=== PATIENT | male | born 1930 | race Caucasian/White ===

== ENCOUNTER 2017-04-15 09:19 | Inpatient (IN) | payer MEDICARE ==
[2017-04-15] MEDS ORDERED: IPRATROPIUM-ALBUTEROL 3 ML NEB INHALATION STA (09:23)
--- NOTE | 2017-04-15 09:28 | ED ---
General Adult HPI - General Stated complaint: SOB Time Seen by Provider: 04/15/17 09:23 Source: patient, EMS, RN notes reviewed, old records reviewed Mode of arrival: EMS Limitations: physical limitation - History of Present Illness Initial comments: Patient is a pleasant 86-year-old male presenting to the emergency department with difficulty in breathing. Patient states onset was throughout the night. Patient does have a known history of congestive heart failure. Patient admits his legs are swollen. Patient denies any history of COPD. No fever. Chest pain. Symptoms are starting to become severe. - Related Data Home Medications Medication Instructions Recorded Confirmed Enalapril [Vasotec] 20 mg PO DAILY 04/01/17 04/15/17 Furosemide [Lasix] 40 mg PO DAILY 04/01/17 04/15/17 Isosorbide Mononitrate ER [Imdur] 30 mg PO DAILY 04/01/17 04/15/17 Metoprolol Tartrate [Lopressor] 50 mg PO BID 04/01/17 04/15/17 Potassium Chloride [Klor-Con 20] 20 meq PO DAILY 04/01/17 04/15/17 Simvastatin 40 mg PO DAILY 04/01/17 04/15/17 Previous Rx's Medication Instructions Recorded Aspirin 81 mg PO DAILY #0 04/02/17 metFORMIN HCL [Glucophage] 1,000 mg PO BID #0 04/02/17 Allergies Allergy/AdvReac Type Severity Reaction Status Date / Time No Known Allergies Allergy Verified 04/15/17 09:59 Review of Systems ROS Statement: Those systems with pertinent positive or pertinent negative responses have been documented in the HPI. ROS Other: All systems not noted in ROS Statement are negative. Constitutional: Denies: fever Eyes: Denies: eye pain ENT: Denies: ear pain Respiratory: Reports: dyspnea Cardiovascular: Denies: chest pain Endocrine: Denies: fatigue Gastrointestinal: Denies: abdominal pain Genitourinary: Denies: dysuria Musculoskeletal: Denies: back pain Skin: Denies: rash Neurological: Denies: headache Past Medical History Past Medical History: Coronary Artery Disease (CAD), Chest Pain / Angina, Heart Failure, Hyperlipidemia, Hypertension, Sleep Apnea/CPAP/BIPAP Additional Past Medical History / Comment(s): NIDDM type II recently diagnosed 02/2017, pt states he has lost 21 pounds since January 2017 and does not know reason, PHILIPPE with CPAP no longer used d/t wt loss and doesn't fit well History of Any Multi-Drug Resistant Organisms: None Reported Past Surgical History: Adenoidectomy, Heart Catheterization, Hernia Repair, Pacemaker, Tonsillectomy Additional Past Surgical History / Comment(s): 12/2013 pacemaker, R inguinal hernia repair, 2006 CABG 4 vessel, 2008 cardiac cath/tx medically, colonoscopy. Past Anesthesia/Blood Transfusion Reactions: No Reported Reaction Type of Cardiac Device: Permanent Pacemaker Device Placement Date:: 2013 Smoking Status: Former smoker - Past Family History Mother Family Medical History: No Reported History Additional Family Medical History / Comment(s): Mother was healthy Father Family Medical History: Renal Disease Additional Family Medical History / Comment(s): Father had medical problems caused from exposure to motor fuels at his workplace. General Exam Limitations: physical limitation General appearance: alert, anxious, in distress Head exam: Present: atraumatic Eye exam: Present: normal appearance, PERRL ENT exam: Present: normal oropharynx Neck exam: Present: normal inspection Respiratory exam: Present: respiratory distress, rales (Bilateral bases), accessory muscle use Cardiovascular Exam: Present: regular rate, normal rhythm GI/Abdominal exam: Present: soft. Absent: tenderness Extremities exam: Present: pedal edema (+3 bilateral). Absent: calf tenderness Neurological exam: Present: alert Psychiatric exam: Present: anxious Skin exam: Present: normal color. Absent: rash Course Vital Signs 04/15/17 04/15/17 04/15/17 09:21 09:36 09:38 Temperature 97.1 F L Pulse Rate 92 53 L Respiratory 16 40 H Rate Blood Pressure 201/93 O2 Sat by Pulse 87 L Oximetry 04/15/17 09:47 Temperature Pulse Rate 54 L Respiratory Rate Blood Pressure O2 Sat by Pulse Oximetry EKG Findings - EKG Comments: EKG Findings:: Paced rhythm at 76. QRS 168. QT 4:30. QTC 483. Left axis. Wide complex QRS with septal Q waves. No acute ST change. Previous EKG reviewed dated 04/01/2017. Medical Decision Making - Medical Decision Making Patient reevaluated and is improving with BiPAP. Case was discussed in detail with Dr. Auguste who will admit his patient. Consult for Dr. Bernstein. Case was also discussed with Dr. Bernstein. Cardiology will be consulted. - Lab Data Result diagrams: 04/15/17 09:34 04/15/17 09:34 Lab Results 04/15/17 04/15/17 04/15/17 Range/Units 09:34 09:34 09:34 WBC 26.3 H* (3.8-10.6) k/uL RBC 5.29 (4.30-5.90) m/uL Hgb 14.2 (13.0-17.5) gm/dL Hct 47.8 (39.0-53.0) % MCV 90.4 (80.0-100.0) fL MCH 26.9 (25.0-35.0) pg MCHC 29.7 L (31.0-37.0) g/dL RDW 13.4 (11.5-15.5) % Plt Count 326 (150-450) k/uL Neutrophils % 87 % Lymphocytes % 5 % Monocytes % 6 % Eosinophils % 0 % Basophils % 0 % Neutrophils # 22.9 H (1.3-7.7) k/uL Lymphocytes # 1.4 (1.0-4.8) k/uL Monocytes # 1.7 H (0-1.0) k/uL Eosinophils # 0.1 (0-0.7) k/uL Basophils # 0.0 (0-0.2) k/uL Hypochromasia Moderate PT (9.0-12.0) sec INR (<1.2) APTT (22.0-30.0) sec Sodium 140 (137-145) mmol/L Potassium 4.7 (3.5-5.1) mmol/L Chloride 106 (98-107) mmol/L Carbon Dioxide 20 L (22-30) mmol/L Anion Gap 14 mmol/L BUN 40 H (9-20) mg/dL Creatinine 1.14 (0.66-1.25) mg/dL Est GFR (MDRD) Af Amer >60 (>60 ml/min/1.73 sqM) Est GFR (MDRD) Non-Af >60 (>60 ml/min/1.73 sqM) Glucose 199 H (74-99) mg/dL Calcium 9.3 (8.4-10.2) mg/dL Total Bilirubin 1.0 (0.2-1.3) mg/dL AST 23 (17-59) U/L ALT 14 L (21-72) U/L Alkaline Phosphatase 82 (38-126) U/L Total Creatine Kinase 27 L (55-170) U/L CK-MB (CK-2) 0.7 (0.0-2.4) ng/mL CK-MB (CK-2) Rel Index 2.6 Troponin I 0.046 H* (0.000-0.034) ng/mL NT-Pro-B Natriuret Pep pg/mL Total Protein 7.4 (6.3-8.2) g/dL Albumin 3.6 (3.5-5.0) g/dL Influenza Type A RNA (Not Detectd) Influenza Type B (PCR) (Not Detectd) 04/15/17 04/15/17 04/15/17 Range/Units 09:34 09:34 09:34 WBC (3.8-10.6) k/uL RBC (4.30-5.90) m/uL Hgb (13.0-17.5) gm/dL Hct (39.0-53.0) % MCV (80.0-100.0) fL MCH (25.0-35.0) pg MCHC (31.0-37.0) g/dL RDW (11.5-15.5) % Plt Count (150-450) k/uL Neutrophils % % Lymphocytes % % Monocytes % % Eosinophils % % Basophils % % Neutrophils # (1.3-7.7) k/uL Lymphocytes # (1.0-4.8) k/uL Monocytes # (0-1.0) k/uL Eosinophils # (0-0.7) k/uL Basophils # (0-0.2) k/uL Hypochromasia PT 12.7 H (9.0-12.0) sec INR 1.4 H (<1.2) APTT 24.6 (22.0-30.0) sec Sodium (137-145) mmol/L Potassium (3.5-5.1) mmol/L Chloride (98-107) mmol/L Carbon Dioxide (22-30) mmol/L Anion Gap mmol/L BUN (9-20) mg/dL Creatinine (0.66-1.25) mg/dL Est GFR (MDRD) Af Amer (>60 ml/min/1.73 sqM) Est GFR (MDRD) Non-Af (>60 ml/min/1.73 sqM) Glucose (74-99) mg/dL Calcium (8.4-10.2) mg/dL Total Bilirubin (0.2-1.3) mg/dL AST (17-59) U/L ALT (21-72) U/L Alkaline Phosphatase (38-126) U/L Total Creatine Kinase (55-170) U/L CK-MB (CK-2) (0.0-2.4) ng/mL CK-MB (CK-2) Rel Index Troponin I (0.000-0.034) ng/mL NT-Pro-B Natriuret Pep 7020 pg/mL Total Protein (6.3-8.2) g/dL Albumin (3.5-5.0) g/dL Influenza Type A RNA Not Detected (Not Detectd) Influenza Type B (PCR) Not Detected (Not Detectd) - Radiology Data Radiology results: image reviewed (Chest x-ray shows pulmonary edema) Critical Care Time Critical Care Time: Yes Total Critical Care Time: 32 Disposition Clinical Impression: CHF (congestive heart failure), Acute respiratory failure, Pulmonary edema Disposition: ADMITTED IP TO THIS [facility] Condition: Serious Referrals: Antonio Auguste DO [Primary Care Provider] - 1-2 days Decision Time: 11:26
[2017-04-15] MEDS ORDERED: NITROGLYCERIN OINT 1 INCH/GM PACKET TOPICAL STA (09:35)
[2017-04-15] MEDS ORDERED: FUROSEMIDE 10 MG/ML 4 ML VIAL IV STA (09:35)
--- NOTE | 2017-04-15 09:35 | XR ---
EXAMINATION TYPE: XR chest 1V portable DATE OF EXAM: 04/15/2017 COMPARISON: NONE HISTORY: Shortness of breath FINDINGS: There are bilateral pleural effusions with cardiomegaly and bibasilar infiltrate. There is a diffuse interstitial pattern. Cardiac device postsurgical changes noted. Arthropathy shoulders. IMPRESSION: 1. Diffuse airspace disease with bilateral effusion. Differential includes pneumonia or pulmonary usama
[2017-04-15] MEDS ORDERED: ENALAPRILAT 1.25 MG/ML 1 ML VIAL IVP STA (09:36)
[2017-04-15 10:02] LABS: Basophils % (A) 0 %; Eosinophils # (A) 0.1 k/uL (0-0.7); Eosinophils % (A) 0 %; HCT 47.8 % (39.0-53.0); HGB 14.2 gm/dL (13.0-17.5); Hypochromasia Moderate; Lymphocytes # (A) 1.4 k/uL (1.0-4.8); Lymphocytes % (A) 5 %; MCH 26.9 pg (25.0-35.0); MCHC 29.7 g/dL (31.0-37.0); MCV 90.4 fL (80.0-100.0); Mean Platelet Volume 8.7; Monocytes # (A) 1.7 k/uL (0-1.0); Monocytes % (A) 6 %; Neutrophils # (A) 22.9 k/uL (1.3-7.7); Neutrophils % (A) 87 %; Platelet Count 326 k/uL (150-450); RBC 5.29 m/uL (4.30-5.90); RDW 13.4 % (11.5-15.5)
[2017-04-15 10:04] LABS: ALT 14 U/L (21-72); AST 23 U/L (17-59); Albumin 3.6 g/dL (3.5-5.0); Alkaline Phosphatase 82 U/L (38-126); Anion Gap 14 mmol/L; Blood Urea Nitrogen 40 mg/dL (9-20); Calcium 9.3 mg/dL (8.4-10.2); Carbon Dioxide 20 mmol/L (22-30); Chloride 106 mmol/L (98-107); Glucose 199 mg/dL (74-99); INR 1.4 (<1.2); Partial Thromboplastin Time 24.6 sec (22.0-30.0); Prothrombin Time 12.7 sec (9.0-12.0); Sodium 140 mmol/L (137-145); Total Protein 7.4 g/dL (6.3-8.2)
[2017-04-15 10:08] LABS: WBC 26.3 k/uL (3.8-10.6)
[2017-04-15 10:10] LABS: Potassium 4.7 mmol/L (3.5-5.1)
[2017-04-15 10:24] LABS: Creatine Kinase MB 0.7 ng/mL (0.0-2.4)
[2017-04-15 10:29] LABS: Troponin I 0.046 ng/mL (0.000-0.034)
[2017-04-15] MEDS ORDERED: ASPIRIN 325 MG TAB PO STA (11:27)
--- NOTE | 2017-04-15 12:21 | P.CNPUL ---
History of Present Illness Consult date: 04/15/17 Requesting physician: Antonio Auguste Reason for consult: dyspnea, abnormal CXR/CT Chief complaint: Shortness of breath History of present illness: This is a very pleasant 86-year-old gentleman who follows with Dr. Auguste as his primary care physician. He has a history of coronary artery disease with previous coronary artery bypass grafting 4 in 2008, permanent pacemaker implantation, diabetes mellitus, obstructive sleep apnea not currently on CPAP, hypertension, hyperlipidemia. He presented here to the emergency room early this morning with complaints of increasing shortness of breath, cough and congestion. He also had increased lower extremity edema. Positive orthopnea. Chest x-ray reveals diffuse airspace disease with bilateral infusion and acute pulmonary edema. He is currently on BiPAP 10/5 and 60% FiO2. He has been initiated on Lasix 40 mg IV push every 8 hours. White count 26.3. Hemoglobin 14.2. INR 1.4. Creatinine 1.14. ProBNP 7020. Troponin 0.046. Influenza screen is negative. Review of Systems 14 point review of system was conducted. All negative other than as mentioned in HPI. Past Medical History Past Medical History: Coronary Artery Disease (CAD), Chest Pain / Angina, Heart Failure, Hyperlipidemia, Hypertension, Sleep Apnea/CPAP/BIPAP Additional Past Medical History / Comment(s): NIDDM type II recently diagnosed 02/2017, pt states he has lost 21 pounds since January 2017 and does not know reason, PHILIPPE with CPAP no longer used d/t wt loss and doesn't fit well History of Any Multi-Drug Resistant Organisms: None Reported Past Surgical History: Adenoidectomy, Heart Catheterization, Hernia Repair, Pacemaker, Tonsillectomy Additional Past Surgical History / Comment(s): 12/2013 pacemaker, R inguinal hernia repair, 2006 CABG 4 vessel, 2008 cardiac cath/tx medically, colonoscopy. Past Anesthesia/Blood Transfusion Reactions: No Reported Reaction Type of Cardiac Device: Permanent Pacemaker Device Placement Date:: 2013 Smoking Status: Former smoker - Past Family History Mother Family Medical History: No Reported History Additional Family Medical History / Comment(s): Mother was healthy Father Family Medical History: Renal Disease Additional Family Medical History / Comment(s): Father had medical problems caused from exposure to motor fuels at his workplace. Medications and Allergies Home Medications Medication Instructions Recorded Confirmed Type Enalapril [Vasotec] 20 mg PO DAILY 04/01/17 04/15/17 History Furosemide [Lasix] 40 mg PO DAILY 04/01/17 04/15/17 History Isosorbide Mononitrate ER [Imdur] 30 mg PO DAILY 04/01/17 04/15/17 History Metoprolol Tartrate [Lopressor] 50 mg PO BID 04/01/17 04/15/17 History Potassium Chloride [Klor-Con 20] 20 meq PO DAILY 04/01/17 04/15/17 History Simvastatin 40 mg PO DAILY 04/01/17 04/15/17 History Aspirin 81 mg PO DAILY #0 04/02/17 04/15/17 Rx metFORMIN HCL [Glucophage] 1,000 mg PO BID #0 04/02/17 04/15/17 Rx Allergies Allergy/AdvReac Type Severity Reaction Status Date / Time No Known Allergies Allergy Verified 04/15/17 09:59 Physical Exam Vitals: Vital Signs Temp Pulse Resp BP Pulse Ox 04/15/17 11:52 97.6 F 50 L 30 H 135/63 95 04/15/17 11:39 50 L 29 H 139/60 97 04/15/17 11:11 50 L 29 H 127/59 97 04/15/17 09:56 52 L 30 H 155/62 98 04/15/17 09:47 54 L 04/15/17 09:38 53 L 04/15/17 09:36 40 H 04/15/17 09:21 97.1 F L 92 16 201/93 87 L Intake and Output 04/14/17 04/15/17 04/15/17 22:59 06:59 14:59 Other: Weight 97.069 kg Patient Weight 04/16/17 06:59 Weight 97.069 kg GENERAL EXAM: Alert, fairly comfortable in mild respiratory distress. HEAD: Normocephalic. EYES: Normal reaction of pupils, equal size. NOSE: Clear with pink turbinates. THROAT: No erythema or exudates. NECK: No masses, no JVD. CHEST: No chest wall deformity. LUNGS: Equal air entry with crackles in the bilateral posterior bases.. CVS: S1 and S2 normal with no audible murmur, regular rhythm. ABDOMEN: No hepatosplenomegaly, normal bowel sounds, no guarding or rigidity. SPINE: No scoliosis or deformity SKIN: No rashes CENTRAL NERVOUS SYSTEM: No focal deficits, tone is normal in all 4 extremities. EXTREMITIES: There is 1-2+ peripheral edema. No clubbing, no cyanosis. Peripheral pulses are intact. Results - Laboratory Findings CBC and BMP: 04/15/17 09:34 04/15/17 09:34 PT/INR, D-dimer PT 12.7 sec (9.0-12.0) H 04/15/17 09:34 INR 1.4 (<1.2) H 04/15/17 09:34 Abnormal lab findings: Abnormal Labs 04/15/1718 04/15/17 09:34 09:34 09:34 WBC 26.3 H* MCHC 29.7 L Neutrophils # 22.9 H Monocytes # 1.7 H PT INR Carbon Dioxide 20 L BUN 40 H Glucose 199 H ALT 14 L Total Creatine Kinase 27 L Troponin I 0.046 H* 04/15/17 09:34 WBC MCHC Neutrophils # Monocytes # PT 12.7 H INR 1.4 H Carbon Dioxide BUN Glucose ALT Total Creatine Kinase Troponin I - Diagnostic Findings Chest x-ray: image reviewed Assessment and Plan Assessment: Impression: #1 Acute hypoxic respiratory failure secondary to an acute exacerbation of systolic congestive heart failure. Acute pneumonia cannot be ruled out. #2 Leukocytosis. #3 Mild troponin leak possibly oxygen supply and demand mismatch. #4 Coronary artery disease with previous coronary artery bypass grafting. #5 Mildly impaired left ventricular systolic function with ejection fraction 45- 50%. #6 Atrial fibrillation, status post permanent pacemaker implantation. #7 Diabetes mellitus, type II. #8 Hypertension. #9 Hyperlipidemia. Plan: The patient was seen and evaluated by Dr. Grossman. His chest x-ray and labs were reviewed. We'll continue on BiPAP for now. We'll transfer the patient to the intensive care unit. He is being diuresed with Lasix 40 mg IV push every 8 hours. Insert Corley catheter for accurate I&O. Cardiology has been consulted as well. We'll continue to follow and make further recommendations based on his clinical status. I, the cosigning physician, performed a history & physical examination of the patient. Lungs sounds have crackles in the bilateral posterior bases. Maintaining good O2 saturations in the 90s on 40% FiO2 and on BiPAP 10/5.. I discussed the assessment and plan of care with my nurse practitioner, Pauline Jc. I attest to the above note as dictated by her. Time with Patient: Greater than 30
[2017-04-15 12:51] LABS: Glucose,Whole Blood 185 mg/dL (75-99)
[2017-04-15] MEDS ORDERED: SUCCINYLCHOLINE CHLORIDE 100 MG/5 ML SYR IV ONE (13:06)
[2017-04-15] MEDS ORDERED: PROPOFOL 10 MG/ML 20 ML VIAL IV ONE (13:06)
[2017-04-15] MEDS ORDERED: PROPOFOL 100 ML IV ONE (13:06)
[2017-04-15 13:16] LABS: ABG Base Excess -7.9 mmol/L; ABG HCO3 18 mmol/L (21-25); ABG Oxygen Saturation 97.6 % (94-97); ABG PCO2 31 mmHg (35-45); ABG PH 7.36 (7.35-7.45); ABG PO2 101 mmHg (83-108); ABG TCO2 19 mmol/L (19-24)
[2017-04-15] MEDS ORDERED: HYDROmorphone 0.5 MG/0.5 ML SYRINGE IVP PRN (13:31)
[2017-04-15] MEDS ORDERED: FUROSEMIDE 10 MG/ML 10 ML VIAL IV STA (13:31)
--- NOTE | 2017-04-15 13:35 | XR ---
EXAMINATION TYPE: XR chest 1V portable DATE OF EXAM: 04/15/2017 COMPARISON: 04/15/2017 INDICATION: Tube placement, difficulty breathing TECHNIQUE: Single frontal view of the chest is obtained. FINDINGS: The heart size is normal. The pulmonary vasculature is normal. There is patchy opacity through the bilateral lungs which is worsening. Correlate for pneumonia. Cons ider ARDS. Endotracheal tube is in place with the tip above the citlali. Nasogastric tube transverses the thorax the tip in the midabdomen. Pacemaker overlies left chest. EKG leads overlie the chest. IMPRESSION: 1. Worsening bilateral lung opacities. Correlate for ARDS. Pneumonia could be considered. 2. Placement of endotracheal tube and nasogastric tube.
[2017-04-15] MEDS ORDERED: SODIUM CHLORIDE 0.9% 1,000 ML IV ONE ×2 (13:44→15:28)
[2017-04-15] MEDS: NITROGLYCERIN OINT 1 INCH/GM PACKET TOPICAL SCH ×3 (14:21→20:54)
[2017-04-15] MEDS: PROPOFOL 1,000 MG in EMPTY BAG 1 BAG IV SCH (14:23)
[2017-04-15] MEDS: PANTOPRAZOLE 40 MG/10 ML VIAL IVP SCH (14:24)
[2017-04-15] MEDS: ENALAPRILAT 1.25 MG/ML 1 ML VIAL IVP SCH ×3 (14:25→23:40)
[2017-04-15] MEDS ORDERED: CISATRACURIUM 2 MG/ML 5 ML VIAL IV ONE ×3 (14:34→15:41)
[2017-04-15] MEDS ORDERED: NOREPINEPHRIN 4 MG-0.9% NS PMX 4 MG/250 ML ML IV ONE (14:35)
[2017-04-15] MEDS ORDERED: NOREPINEPHRIN 4 MG-0.9% NS PMX 4 MG/250 ML ML IV SCH (14:45)
[2017-04-15] MEDS ORDERED: SODIUM CHLORIDE 0.9% 500 ML IV ONE (15:28)
[2017-04-15 15:41] LABS: ABG Base Excess -8.4 mmol/L; ABG HCO3 18 mmol/L (21-25); ABG Oxygen Saturation 99.9 % (94-97); ABG PCO2 37 mmHg (35-45); ABG PO2 187 mmHg (83-108); ABG TCO2 19 mmol/L (19-24)
[2017-04-15] MEDS ORDERED: CISATRACURIUM 200 MG in SODIUM CHLORIDE 0.9% 180 ML IV SCH (15:45)
[2017-04-15 16:03] LABS: Creatine Kinase MB 0.8 ng/mL (0.0-2.4)
[2017-04-15 16:06] LABS: Troponin I 0.083 ng/mL (0.000-0.034)
[2017-04-15] MEDS: LIDOCAINE 2% SYG (PF) 100 MG/5 ML ONE ×2 (17:02→17:03)
[2017-04-15] MEDS: ARTIFICIAL TEARS-HYPROMELLOSE DROPS 15 ML BTL BOTH EYES SCH ×2 (17:10→19:32)
[2017-04-15] MEDS: FUROSEMIDE 10 MG/ML 4 ML VIAL IV SCH (17:10)
[2017-04-15] MEDS: IPRATROPIUM-ALBUTEROL 3 ML NEB INHALATION SCH ×3 (17:19→23:03)
--- NOTE | 2017-04-15 17:37 | XR ---
EXAMINATION TYPE: XR chest 1V portable DATE OF EXAM: 04/15/2017 COMPARISON: 04/15/2017 earlier in the day INDICATION: Line placement TECHNIQUE: Single frontal view of the chest is obtained. FINDINGS: The heart size is normal. The pulmonary vasculature is normal. There is a small left pleural effusion. Patchy infiltrate is present on the right. This is significan tly improved from prior study. There is placement of a left IJ catheter with the tip in the region of the distal superior vena cava. Pacemaker overlies left chest. Endotracheal tube and nasogastric tube remain present. IMPRESSION: 1. Significant improved patchy infiltrates. Residual remains. Atelectasis and pneumonia are within th e differential. 2. No pneumothorax post left central venous catheter placement. Tip is in the superior vena cava huy on.
[2017-04-15 19:20] LABS: Amorphous Sediment,Urine Rare /hpf; Appearance,Urine Cloudy (Clear); Bacteria,Urine Occasional /hpf; Bilirubin,Urine Negative (Negative); Blood,Urine Moderate (Negative); Color,Urine Yellow; Glucose,Urine (UA) Negative (Negative); Hyaline Casts,Urine 89 /lpf (0-2); Ketones,Urine Negative (Negative); Leukocyte Esterase,Urine Trace (Negative); Mucus,Urine Many /hpf; Nitrite,Urine Negative (Negative); PH, Urine 5.5 (5.0-8.0); Protein,Urine 2+ (Negative); RBC,Urine 13 /hpf (0-5); Specific Gravity,Urine 1.017 (1.001-1.035); WBC,Urine 15 /hpf (0-5)
--- NOTE | 2017-04-15 19:37 | PCN ---
PROCEDURE NOTE ARTERIAL LINE PLACEMENT: Indication Hemodynamic monitoring. A time-out was completed verifying correct patient, procedure, site, positioning, and implant(s) or special equipment if applicable. Jorge's test was performed to ensure adequate perfusion. The patient's right wrist was prepped and draped in sterile fashion. 1% Lidocaine was used to anesthetize the area. An 18G Arrow arterial line was introduced into the radial artery. The catheter was threaded over the guide wire and the needle was removed with appropriate pulsatile blood return. Blood loss was minimal. The catheter was then sutured in place to the skin and a sterile dressing applied. Perfusion to the extremity distal to the point of catheter insertion was checked and found to be adequate. The patient tolerated the procedure well and there were no complications. There was no immediate complication. Done for blood pressure monitoring and frequent blood draws. There was no immediate complication. There was good waveform and blood pressure. The catheter was sutured in place. Sterile dressing was applied by the nurse. There was no immediate complication. MMODL / IJN: [id number] /
--- NOTE | 2017-04-15 19:40 | PCN ---
PROCEDURE NOTE PROCEDURE PERFORMED: Left internal jugular triple-lumen catheter. PREOP DIAGNOSIS: Administration of fluids and pressors. POSTOP DIAGNOSIS: Administration of fluids and pressors. There was no immediate complication. TRIPLE LUMEN CATHETER PLACEMENT: Indication: Hemodynamic monitoring/Intravenous access. A time-out was completed verifying correct patient, procedure, site, positioning, and implant(s) or special equipment if applicable. The patient was placed in a dependent position appropriate for triple lumen catheter placement based on the vein to be cannulated. The patient's left neck was prepped and draped in sterile fashion. 1% Lidocaine was used to anesthetize the surrounding skin area. A triple lumen 9F Cordis catheter was introduced into the internal jugular vein using Seldinger technique. The catheter was threaded smoothly over the guide wire and appropriate blood return was obtained. Each lumen of the catheter was evacuated of air and flushed with sterile saline. The catheter was then sutured in place to the skin and a sterile dressing applied. Perfusion to the extremity distal to the point of catheter insertion was checked and found to be adequate. There was good blood return from all 3 ports. The catheter sutured in place. A sterile dressing was applied by the nurse. There was no immediate complication. Chest x-ray was done to rule out pneumothorax and check placement. MMODL / IJN: [id number] /
[2017-04-15] MEDS: CHLORHEXIDINE GLUCONATE 15 ML CUP MUCOUS MEM SCH (20:00)
[2017-04-15] MEDS: METOPROLOL TARTRATE 50 MG TAB PO SCH (20:00)
[2017-04-15] MEDS: NOREPINEPHRIN 16 MG-0.9%NS PMX 16 MG/250 ML ML IV SCH (20:01)
[2017-04-15] MEDS ORDERED: HYDROmorphone 4 MG/ML 1 ML SYRINGE IVP PRN (20:12)
[2017-04-15] MEDS ORDERED: FUROSEMIDE 10 MG/ML 2 ML VIAL IV STA (20:49)
[2017-04-15] MEDS: metFORMIN 500 MG TAB PO SCH (20:53)
[2017-04-15 20:59] LABS: Glucose,Whole Blood 201 mg/dL (75-99)
[2017-04-15 23:02] LABS: Creatine Kinase MB 1.4 ng/mL (0.0-2.4)
[2017-04-15 23:10] LABS: Troponin I 0.104 ng/mL (0.000-0.034)
[2017-04-16] MEDS: ARTIFICIAL TEARS-HYPROMELLOSE DROPS 15 ML BTL BOTH EYES SCH ×4 (01:16→12:07)
[2017-04-16] MEDS: INSULIN ASPART 100 UNIT/ML 1 ML 10 ML VIAL SQ SCH ×5 (01:16→23:18)
[2017-04-16 01:17] LABS: Glucose,Whole Blood 212 mg/dL (75-99)
[2017-04-16] MEDS: FUROSEMIDE 10 MG/ML 4 ML VIAL IV SCH ×4 (01:41→23:11)
[2017-04-16] MEDS: IPRATROPIUM-ALBUTEROL 3 ML NEB INHALATION SCH ×6 (03:02→23:16)
--- NOTE | 2017-04-16 04:23 | XR ---
EXAM: XR Chest, 1 View CLINICAL HISTORY: Tube placement TECHNIQUE: Frontal view of the chest. COMPARISON: Chest x-ray dated 04/15/2017. FINDINGS: Lungs: Slightly increased patchy opacity in the left lower lung. Otherwise unchanged patchy opacities throughout both lungs, more prominent on the right. Pleural space: Unremarkable. No pneumothorax. Heart: Unchanged moderate cardiomegaly. Mediastinum: Unremarkable. Bones/joints: Prior sternotomy. Tubes, lines and devices: Lines and tubes are stable in position. 2- lead AICD projecting over the left chest wall. IMPRESSION: Slightly worsened nonspecific opacity in the left lung base. Otherwise unchanged exam.
[2017-04-16 04:35] LABS: Basophils % (A) 0 %; Eosinophils # (A) 0.1 k/uL (0-0.7); Eosinophils % (A) 0 %; HCT 46.2 % (39.0-53.0); Hypochromasia Marked; Lymphocytes % (A) 8 %; MCH 26.8 pg (25.0-35.0); MCHC 28.1 g/dL (31.0-37.0); MCV 95.1 fL (80.0-100.0); Mean Platelet Volume 7.4; Monocytes # (A) 1.8 k/uL (0-1.0); Monocytes % (A) 7 %; Neutrophils # (A) 21.4 k/uL (1.3-7.7); Neutrophils % (A) 83 %; Platelet Count 305 k/uL (150-450); RBC 4.86 m/uL (4.30-5.90); RDW 13.5 % (11.5-15.5)
[2017-04-16 04:38] LABS: Calcium 7.8 mg/dL (8.4-10.2); Magnesium 1.5 mg/dL (1.6-2.3); Phosphorus 5.6 mg/dL (2.5-4.5); Potassium 5.3 mmol/L (3.5-5.1); WBC 25.7 k/uL (3.8-10.6)
[2017-04-16] MEDS ORDERED: Magnesium Replacement Protocol 1 EACH MISC MISCELLANE PRN (05:03)
[2017-04-16 05:13] LABS: ABG Base Excess -8.5 mmol/L; ABG HCO3 20 mmol/L (21-25); ABG Oxygen Saturation 97.1 % (94-97); ABG PCO2 52 mmHg (35-45); ABG PO2 96 mmHg (83-108); ABG TCO2 21 mmol/L (19-24)
[2017-04-16 05:24] LABS: ABG PH 7.19 (7.35-7.45)
[2017-04-16] MEDS: MAGNESIUM SULFATE-D5W PMX 1 GM in DEXTROSE/WATER 1 100ML.BAG IVPB SCH ×2 (06:24→07:40)
[2017-04-16] MEDS: ENALAPRILAT 1.25 MG/ML 1 ML VIAL IVP SCH ×2 (06:24→12:08)
[2017-04-16 06:26] LABS: Glucose,Whole Blood 179 mg/dL (75-99)
[2017-04-16] MEDS: ASPIRIN 325 MG TAB PO SCH (08:43)
[2017-04-16] MEDS: CHLORHEXIDINE GLUCONATE 15 ML CUP MUCOUS MEM SCH ×2 (08:44→20:20)
[2017-04-16] MEDS: ATORVASTATIN 20 MG TAB PO SCH (08:44)
[2017-04-16] MEDS: metFORMIN 500 MG TAB PO SCH ×2 (08:44→20:20)
[2017-04-16] MEDS: PANTOPRAZOLE 40 MG/10 ML VIAL IVP SCH (08:44)
[2017-04-16] MEDS: PROPOFOL 1,000 MG in EMPTY BAG 1 BAG IV SCH ×3 (08:45→21:45)
[2017-04-16] MEDS ORDERED: ISOSORBIDE MONONITRATE ER 30 MG TAB.ER.24H PO SCH (09:00)
[2017-04-16] MEDS ORDERED: POTASSIUM CHLORIDE ER 20 MEQ TAB.ER PO SCH (09:00)
[2017-04-16] MEDS: METOPROLOL TARTRATE 50 MG TAB PO SCH (09:43)
--- NOTE | 2017-04-16 09:48 | P.CRDCN ---
History of Present Illness Consult date: 04/16/17 History of present illness: This is a 86-year-old gentleman with history of previous ischemic heart disease , permanent pacemaker implantation, diabetes, and also sleep apnea who was admitted through the emergency room with complaints of increasing shortness of breath, cough and congestion. There is also history that the lower extremity edema. Chest x-ray showed diffuse air space disease and also small pleural effusions. There appeared to be combination of CHF and also possible pneumonia. His proBNP was 7020. Is a proBNP during last admission was in the range of 2000. Patient has a pacemaker rhythm with underlying atrial fibrillation. His lab work showed a white count of about 25,000. Repeat chest x-ray shows some improvement but still persistent infiltrates. Most probably patient has underlying pneumonia and sepsis with exacerbation of CHF. We'll continue with IV diuretics. Patient is still on Levophed and metoprolol and lisinopril and also Imdur are being held at this time. Prognosis is guarded. I 'm going to get an echocardiogram done today Review of Systems Not obtained Past Medical History Past Medical History: Coronary Artery Disease (CAD), Chest Pain / Angina, Heart Failure, Hyperlipidemia, Hypertension, Sleep Apnea/CPAP/BIPAP Additional Past Medical History / Comment(s): Pt recently admitted 04/01/17, all medical hx obtained thru that documentation. NIDDM type II recently diagnosed 02/2017, pt states he has lost 21 pounds since January 2017 and does not know reason, PHILIPPE with CPAP no longer used d/t wt loss and doesn't fit well History of Any Multi-Drug Resistant Organisms: None Reported Past Surgical History: Adenoidectomy, Heart Catheterization, Hernia Repair, Pacemaker, Tonsillectomy Additional Past Surgical History / Comment(s): 12/2013 pacemaker, R inguinal hernia repair, 2006 CABG 4 vessel, 2008 cardiac cath/tx medically, colonoscopy. Past Anesthesia/Blood Transfusion Reactions: No Reported Reaction Type of Cardiac Device: Permanent Pacemaker Device Placement Date:: 2013 Smoking Status: Former smoker - Past Family History Mother Family Medical History: No Reported History Additional Family Medical History / Comment(s): Mother was healthy Father Family Medical History: Renal Disease Additional Family Medical History / Comment(s): Father had medical problems caused from exposure to motor fuels at his workplace. Medications and Allergies Home Medications Medication Instructions Recorded Confirmed Type Enalapril [Vasotec] 20 mg PO DAILY 04/01/17 04/15/17 History Furosemide [Lasix] 40 mg PO DAILY 04/01/17 04/15/17 History Isosorbide Mononitrate ER [Imdur] 30 mg PO DAILY 04/01/17 04/15/17 History Metoprolol Tartrate [Lopressor] 50 mg PO BID 04/01/17 04/15/17 History Potassium Chloride [Klor-Con 20] 20 meq PO DAILY 04/01/17 04/15/17 History Simvastatin 40 mg PO DAILY 04/01/17 04/15/17 History Aspirin 81 mg PO DAILY #0 04/02/17 04/15/17 Rx metFORMIN HCL [Glucophage] 1,000 mg PO BID #0 04/02/17 04/15/17 Rx Allergies Allergy/AdvReac Type Severity Reaction Status Date / Time No Known Allergies Allergy Verified 04/15/17 09:59 Physical Exam Vitals: Vital Signs Temp Pulse Resp BP Pulse Ox 04/16/17 08:15 46 L 04/16/17 07:53 49 L 04/16/17 07:00 49 L 28 H 135/51 99 04/16/17 06:00 49 L 24 149/64 97 04/16/17 05:00 49 L 25 H 140/53 96 04/16/17 04:00 50 L 24 95 04/16/17 03:18 59 L 04/16/17 03:00 44 L 24 96 04/16/17 02:00 43 L 24 96 04/16/17 01:00 49 L 24 95 04/16/17 00:00 98.9 F 50 L 24 95 04/15/17 23:30 50 L 04/15/17 23:03 49 L 04/15/17 23:00 49 L 24 143/61 95 04/15/17 22:00 98.9 F 49 L 24 94 L 04/15/17 21:00 58 L 24 94 L 04/15/17 20:00 99.1 F 54 L 24 94 L 04/15/17 19:26 50 L 04/15/17 19:10 56 L 04/15/17 19:00 49 L 24 97 04/15/17 18:45 50 L 24 138/55 98 04/15/17 18:30 49 L 24 138/55 97 04/15/17 18:15 49 L 7 L 138/55 97 04/15/17 18:00 49 L 24 138/55 97 04/15/17 17:45 55 L 24 138/55 97 04/15/17 17:30 49 L 24 138/55 96 04/15/17 17:24 55 L 04/15/17 17:15 49 L 24 138/55 97 04/15/17 17:00 50 L 24 132/64 87 L 04/15/17 16:45 49 L 24 132/64 92 L 04/15/17 16:30 56 L 24 117/44 91 L 04/15/17 16:15 50 L 24 119/46 95 04/15/17 16:00 98.8 F 52 L 24 130/58 96 04/15/17 15:45 53 L 32 H 130/58 98 04/15/17 15:30 54 L 31 H 121/34 98 04/15/17 15:00 49 L 24 102/48 98 04/15/17 14:45 49 L 15 84/34 95 04/15/17 14:30 49 L 33 H 68/33 94 L 04/15/17 14:15 49 L 34 H 74/35 96 04/15/17 14:00 49 L 31 H 74/35 97 04/15/17 13:50 49 L 31 H 79/35 97 04/15/17 13:40 49 L 27 H 92/34 91 L 04/15/17 13:30 52 L 28 H 95/48 89 L 04/15/17 13:20 55 L 23 150/54 93 L 04/15/17 13:10 59 L 41 H 194/79 97 04/15/17 13:00 64 42 H 165/68 96 04/15/17 12:50 52 L 43 H 165/68 98 04/15/17 12:40 50 L 45 H 173/58 98 04/15/17 11:52 97.6 F 50 L 30 H 135/63 95 04/15/17 11:39 50 L 29 H 139/60 97 04/15/17 11:11 50 L 29 H 127/59 97 04/15/17 09:56 52 L 30 H 155/62 98 04/15/17 09:47 54 L Intake and Output 04/15/17 04/16/17 04/16/17 22:59 06:59 14:59 Intake Total 2366.645 955.484 138.672 Output Total 200 130 20 Balance 2166.645 825.484 118.672 Intake: IV 2200 700 100 0.9 700 700 100 Sodium Chloride 0.9% 1, 1500 000 ml @ 999 mls/hr IV . Q1H1M [facility] Rx#:[id number] Intake, IV Titration 166.645 255.484 38.672 Amount Cisatracurium 200 mg In 20.16 103.296 Sodium Chloride 0.9% 180 ml @ 1 MCG/KG/MIN 5.76 mls/hr IV .Q24H [facility] Rx#: [id number] Norepinephrin 16 mg-0.9% 46.485 152.188 38.672 Ns Pmx 16 mg In 250 ml @ Titrate IV .Q0M [facility] Rx#: [id number] Propofol 1,000 mg In 100 Empty Bag 1 bag @ Titrate IV .Q0M [facility] Rx#: [id number] Output: Urine 200 130 20 Other: Voiding Method Indwelling Catheter Indwelling Catheter Weight 102.8 kg ABP, PAP, CO, CI - Last 8 Hours Arterial Blood Pressure 111/40 Arterial Blood Pressure 100/40 Arterial Blood Pressure 115/42 Arterial Blood Pressure 101/48 Arterial Blood Pressure 110/45 Arterial Blood Pressure 96/45 GENERAL EXAM: Patient is intubated and sedated HEENT: Normocephalic. Normal reaction of pupils, equal size, normal range of extraocular motion. No erythema or exudates in the throat. NECK: No masses, no nuchal rigidity. CHEST: No chest wall deformity. LUNGS: Diminished breath sounds, scattered rhonchi HEART: Distant heart sounds ABDOMEN: No hepatosplenomegaly, normal bowel sounds, no guarding or rigidity. SKIN: No rashes CENTRAL NERVOUS SYSTEM: Deferred EXTREMITIES: 2-3+ edema Results 04/16/17 04:05 04/16/17 04:05 Cardiac Enzymes 04/15/17 04/15/17 04/15/17 Range/Units 09:34 09:34 15:17 AST 23 (17-59) U/L CK-MB (CK-2) 0.7 0.8 (0.0-2.4) ng/mL Troponin I 0.046 H* 0.083 H* (0.000-0.034) ng/mL 04/15/17 Range/Units 22:00 AST (17-59) U/L CK-MB (CK-2) 1.4 (0.0-2.4) ng/mL Troponin I 0.104 H* (0.000-0.034) ng/mL Coagulation 04/15/17 Range/Units 09:34 PT 12.7 H (9.0-12.0) sec APTT 24.6 (22.0-30.0) sec CBC 04/15/17 04/16/17 Range/Units 09:34 04:05 WBC 26.3 H* 25.7 H* (3.8-10.6) k/uL RBC 5.29 4.86 (4.30-5.90) m/uL Hgb 14.2 13.0 (13.0-17.5) gm/dL Hct 47.8 46.2 (39.0-53.0) % Plt Count 326 305 (150-450) k/uL Comprehensive Metabolic Panel 04/15/17 04/16/17 Range/Units 09:34 04:05 Sodium 140 140 (137-145) mmol/L Potassium 4.7 5.3 H (3.5-5.1) mmol/L Chloride 106 105 (98-107) mmol/L Carbon Dioxide 20 L 19 L (22-30) mmol/L BUN 40 H 47 H (9-20) mg/dL Creatinine 1.14 1.40 H (0.66-1.25) mg/dL Glucose 199 H 206 H (74-99) mg/dL Calcium 9.3 7.8 L (8.4-10.2) mg/dL AST 23 (17-59) U/L ALT 14 L (21-72) U/L Alkaline Phosphatase 82 (38-126) U/L Total Protein 7.4 (6.3-8.2) g/dL Albumin 3.6 (3.5-5.0) g/dL Current Medications Generic Name Dose Route Start Last Admin Trade Name Freq PRN Reason Stop Dose Admin Albuterol/Ipratropium 3 ml 04/15/17 16:00 04/16/17 07:49 Duoneb 0.5 Mg-3 Mg/3 Ml Soln INHALATION 3 ml RT-Q4H [facility] Administration Artificial Tears 2 drops 04/15/17 16:00 04/16/17 08:43 Artificial Tear Drops BOTH EYES 2 drops Q4HR [facility] Administration Aspirin 325 mg 04/16/17 09:00 04/16/17 08:43 Aspirin PO 325 mg DAILY [facility] Administration Atorvastatin Calcium 20 mg 04/16/17 09:00 04/16/17 08:44 Lipitor PO 20 mg DAILY [facility] Administration Chlorhexidine Gluconate 15 ml 04/15/17 21:00 04/16/17 08:44 Peridex MUCOUS MEM 15 ml BID [facility] Administration Enalaprilat 1.25 mg 04/15/17 14:00 04/16/17 06:24 Vasotec IVP Not Given Q6HR [facility] Furosemide 40 mg 04/15/17 16:00 04/16/17 08:43 Lasix IV 40 mg Q8HR [facility] Administration Hydromorphone HCl 1 mg 04/15/17 13:31 Dilaudid IVP Q2HR PRN Pain Hydromorphone HCl 2 mg 04/15/17 20:12 Dilaudid IVP Q2H PRN Severe Pain Propofol 1,000 mg/ IV Solution 100 mls @ 0 mls/hr 04/15/17 13:15 04/16/17 08: 45 IV 40.04 mcg/kg/min .Q0M [facility] 24.7 mls/hr Protocol Administration Titrate Cisatracurium Besylate 200 mg/ 200 mls @ 5.76 mls/hr 04/15/17 15:45 04/16/17 04:45 Sodium Chloride IV 0 mcg/kg/min .Q24H [facility] 0 mls/hr Protocol Titration 1 MCG/KG/MIN Norepinephrine Bitartrate 16 mg in 250 mls @ 0 mls/hr 04/15/17 18:15 08:46 Levophed-0.9% Nacl 16 Mg/250ml Pmx IV 13 mcg/min .Q0M [facility] 12.188 mls/hr Protocol Titration Titrate Insulin Aspart 0 unit 04/16/17 00:00 04/16/17 06:25 Novolog SQ 2 unit Q6HR [facility] Administration Protocol Metformin HCl 1,000 mg 04/15/17 21:00 04/16/17 08:44 Glucophage PO 1,000 mg BID [facility] Administration Miscellaneous Information 1 each 04/16/17 05:03 Magnesium Per Protocol MISCELLANE DAILY PRN Per Protocol Protocol Pantoprazole Sodium 40 mg 04/15/17 13:15 04/16/17 08:44 Protonix IVP 40 mg DAILY [facility] Administration Sodium Chloride 10 ml 04/15/17 21:00 04/16/17 08:44 Saline Flush IV 10 ml BID [facility] Administration Intake and Output 04/15/17 04/16/17 04/16/17 22:59 06:59 14:59 Intake Total 2366.645 955.484 138.672 Output Total 200 130 20 Balance 2166.645 825.484 118.672 Intake: IV 2200 700 100 0.9 700 700 100 Sodium Chloride 0.9% 1, 1500 000 ml @ 999 mls/hr IV . Q1H1M [facility] Rx#:[id number] Intake, IV Titration 166.645 255.484 38.672 Amount Cisatracurium 200 mg In 20.16 103.296 Sodium Chloride 0.9% 180 ml @ 1 MCG/KG/MIN 5.76 mls/hr IV .Q24H [facility] Rx#: [id number] Norepinephrin 16 mg-0.9% 46.485 152.188 38.672 Ns Pmx 16 mg In 250 ml @ Titrate IV .Q0M [facility] Rx#: [id number] Propofol 1,000 mg In 100 Empty Bag 1 bag @ Titrate IV .Q0M [facility] Rx#: [id number] Output: Urine 200 130 20 Other: Voiding Method Indwelling Catheter Indwelling Catheter Weight 102.8 kg 04/16/17 04:05 04/16/17 04:05 EKG Interpretations (text) Paced rhythm with underlying atrial fibrillation Assessment and Plan (1) Pneumonia Current Visit: Yes Status: Acute Code(s): J18.9 - PNEUMONIA, UNSPECIFIED ORGANISM SNOMED Code(s): 629286307 (2) Acute respiratory failure Current Visit: Yes Status: Acute Code(s): J96.00 - ACUTE RESPIRATORY FAILURE , UNSP W HYPOXIA OR HYPERCAPNIA SNOMED Code(s): 53722217 (3) CHF (congestive heart failure) Current Visit: Yes Status: Acute Code(s): I50.9 - HEART FAILURE, UNSPECIFIED SNOMED Code(s): 22739389 (4) Diabetes mellitus, type 2 Current Visit: No Status: Acute Code(s): E11.9 - TYPE 2 DIABETES MELLITUS WITHOUT COMPLICATIONS SNOMED Code(s): 21511879 (5) Sepsis Current Visit: Yes Status: Acute Code(s): A41.9 - SEPSIS, UNSPECIFIED ORGANISM SNOMED Code(s): 42664099 (6) CAD (coronary artery disease) Current Visit: Yes Status: Acute Code(s): I25.10 - ATHSCL HEART DISEASE OF [place] CORONARY ARTERY W/O ANG PCTRS SNOMED Code(s): 30273008 (7) Chronic atrial fibrillation Current Visit: Yes Status: Acute Code(s): I48.2 - CHRONIC ATRIAL FIBRILLATION SNOMED Code(s): 058032643 Plan: Continue the supportive care with IV diuretics and also norepinephrine. Patient should have's workup for possible sepsis. Patient may need antibiotic coverage. I'm going to get an echocardiogram done. We had also consider anticoagulation because of chronic atrial fibrillation. Prognosis is guarded
[2017-04-16 12:10] LABS: Glucose,Whole Blood 137 mg/dL (75-99)
[2017-04-16 12:11] LABS: ABG Base Excess -7.3 mmol/L; ABG HCO3 19 mmol/L (21-25); ABG Oxygen Saturation 99.4 % (94-97); ABG PCO2 39 mmHg (35-45); ABG PO2 161 mmHg (83-108); ABG TCO2 20 mmol/L (19-24)
--- NOTE | 2017-04-16 12:38 | P.PN ---
Subjective Progress Note Date: 04/16/17 Principal diagnosis: Acute exacerbation of chronic congestive heart failure with acute hypoxic respiratory failure requiring intubation mechanical ventilatory support. This is a very pleasant 86-year-old gentleman who follows with Dr. Auguste as his primary care physician. He has a history of coronary artery disease with previous coronary artery bypass grafting 4 in 2006, permanent pacemaker implantation, diabetes mellitus, obstructive sleep apnea not currently on CPAP, hypertension, hyperlipidemia. He presented here to the emergency room early this morning with complaints of increasing shortness of breath, cough and congestion. He also had increased lower extremity edema. Positive orthopnea. Chest x-ray reveals diffuse airspace disease with bilateral infusion and acute pulmonary edema. He is currently on BiPAP 10/5 and 60% FiO2. He has been initiated on Lasix 40 mg IV push every 8 hours. White count 26.3. Hemoglobin 14.2. INR 1.4. Creatinine 1.14. ProBNP 7020. Troponin 0.046. Influenza screen is negative. The patient is seen again today 04/16/2017 in follow-up in the intensive care unit. Unfortunately shortly after arriving to the ICU from the ER he went on to develop worsening acute hypoxic respiratory failure and required intubation mechanical ventilatory support. Left IJ triple-lumen catheter was inserted. Right radial arterial line was inserted. He remains on the ventilator today at assist control 28, tidal 450, FiO2 60% and a PEEP of 5. Earlier he was on a rate of 20 and his arterial blood gases revealed a pO2 of 96, pCO2, 7.19 and his rate was increased to 28 earlier this morning. He has a 0.9 normal saline at 100 MLS per hour. Propofol at 40 mcg/kg/m, norepinephrine at 30 mcg/m. His Nimbex is off. CVP has been running 9-11. His chest x-ray continues to show bilateral infiltrates. He remains on Lasix 40 mg IV push every 8 hours. Sputum , blood and urine cultures are pending. He is currently afebrile. Heart rate in 50. Current blood pressure 117/40 with a mean arterial pressure of 65. White count 25.7, hemoglobin 13.0. Objective - Vital Signs Vital signs: Vital Signs Temp 98.4 F 04/16/17 08:00 Pulse 49 L 04/16/17 11:30 Resp 28 H 04/16/17 11:30 BP 110/41 04/16/17 11:30 Pulse Ox 99 04/16/17 11:30 Intake & Output 04/15/17 04/16/17 04/16/17 18:59 06:59 18:59 Intake Total 2700 1622.129 919.847 Output Total 370 220 190 Balance 2330 1402.129 729.847 Weight 96 kg 102.8 kg Intake: IV 2700 1200 630 0.9 200 1200 600 0.9 A-Line and CVP 30 Sodium Chloride 0.9% 1, 2500 000 ml @ 999 mls/hr IV . Q1H1M [facility] Rx#:[id number] Intake, IV Titration 422.129 244.847 Amount Cisatracurium 200 mg In 123.456 Sodium Chloride 0.9% 180 ml @ 1 MCG/KG/MIN 5.76 mls/hr IV .Q24H [facility] Rx#: [id number] Magnesium Sulfate-D5w Pmx 200 1 gm In Dextrose/Water 1 100ml.bag @ 100 mls/hr IVPB Q1H [facility] Rx#: [id number] Norepinephrin 16 mg-0.9% 198.673 38.672 Ns Pmx 16 mg In 250 ml @ Titrate IV .Q0M [facility] Rx#: [id number] Propofol 1,000 mg In 100 6.175 Empty Bag 1 bag @ Titrate IV .Q0M [facility] Rx#: [id number] Other 45 Output: Urine 370 220 190 Other: Voiding Method Indwelling Catheter Indwelling Catheter Indwelling Catheter ABP, PAP, CO, CI - Last Documented Arterial Blood Pressure 110/41 - Exam GENERAL EXAM: Sedated, intubated. comfortable in no apparent distress. HEAD: Normocephalic. EYES: Sluggish reaction of pupils, equal size. NOSE: Clear with pink turbinates. THROAT: Oral endotracheal and nasogastric tubes remain in place. NECK: No masses, no JVD. CHEST: No chest wall deformity. LUNGS: Equal air entry with crackles in the bilateral posterior bases. CVS: S1 and S2 normal with no audible murmur, irregular rhythm. ABDOMEN: No hepatosplenomegaly, normal bowel sounds, no guarding or rigidity. SPINE: No scoliosis or deformity SKIN: No rashes CENTRAL NERVOUS SYSTEM: Sedated. EXTREMITIES: There 1-2+ peripheral edema. No clubbing, no cyanosis. Peripheral pulses are intact. - Labs CBC & Chem 7: 04/16/17 04:05 04/16/17 04:05 Labs: Abnormal Lab Results - Last 24 Hours (Table) 04/15/17 04/15/17 04/15/17 Range/Units 12:30 13:12 15:16 WBC (3.8-10.6) k/uL MCHC (31.0-37.0) g/dL Neutrophils # (1.3-7.7) k/uL Monocytes # (0-1.0) k/uL ABG pH 7.30 L (7.35-7.45) ABG pCO2 31 L (35-45) mmHg ABG pO2 187 H (83-108) mmHg ABG HCO3 18 L 18 L (21-25) mmol/L ABG O2 Saturation 97.6 H 99.9 H (94-97) % Potassium (3.5-5.1) mmol/L Carbon Dioxide (22-30) mmol/L BUN (9-20) mg/dL Creatinine (0.66-1.25) mg/dL Glucose (74-99) mg/dL POC Glucose (mg/dL) 185 H (75-99) mg/dL Calcium (8.4-10.2) mg/dL Phosphorus (2.5-4.5) mg/dL Magnesium (1.6-2.3) mg/dL Troponin I (0.000-0.034) ng/mL Urine Protein (Negative) Urine Blood (Negative) Ur Leukocyte Esterase (Negative) Urine RBC (0-5) /hpf Urine WBC (0-5) /hpf Amorphous Sediment (None) /hpf Urine Bacteria (None) /hpf Hyaline Casts (0-2) /lpf Urine Mucus (None) /hpf 04/15/17 04/15/17 04/15/17 Range/Units 15:17 19:10 20:57 WBC (3.8-10.6) k/uL MCHC (31.0-37.0) g/dL Neutrophils # (1.3-7.7) k/uL Monocytes # (0-1.0) k/uL ABG pH (7.35-7.45) ABG pCO2 (35-45) mmHg ABG pO2 (83-108) mmHg ABG HCO3 (21-25) mmol/L ABG O2 Saturation (94-97) % Potassium (3.5-5.1) mmol/L Carbon Dioxide (22-30) mmol/L BUN (9-20) mg/dL Creatinine (0.66-1.25) mg/dL Glucose (74-99) mg/dL POC Glucose (mg/dL) 201 H (75-99) mg/dL Calcium (8.4-10.2) mg/dL Phosphorus (2.5-4.5) mg/dL Magnesium (1.6-2.3) mg/dL Troponin I 0.083 H* (0.000-0.034) ng/mL Urine Protein 2+ H (Negative) Urine Blood Moderate H (Negative) Ur Leukocyte Esterase Trace H (Negative) Urine RBC 13 H (0-5) /hpf Urine WBC 15 H (0-5) /hpf Amorphous Sediment Rare H (None) /hpf Urine Bacteria Occasional H (None) /hpf Hyaline Casts 89 H (0-2) /lpf Urine Mucus Many H (None) /hpf 04/15/17 04/16/17 04/16/17 Range/Units 22:00 01:15 04:05 WBC 25.7 H* (3.8-10.6) k/uL MCHC 28.1 L (31.0-37.0) g/dL Neutrophils # 21.4 H (1.3-7.7) k/uL Monocytes # 1.8 H (0-1.0) k/uL ABG pH (7.35-7.45) ABG pCO2 (35-45) mmHg ABG pO2 (83-108) mmHg ABG HCO3 (21-25) mmol/L ABG O2 Saturation (94-97) % Potassium (3.5-5.1) mmol/L Carbon Dioxide (22-30) mmol/L BUN (9-20) mg/dL Creatinine (0.66-1.25) mg/dL Glucose (74-99) mg/dL POC Glucose (mg/dL) 212 H (75-99) mg/dL Calcium (8.4-10.2) mg/dL Phosphorus (2.5-4.5) mg/dL Magnesium (1.6-2.3) mg/dL Troponin I 0.104 H* (0.000-0.034) ng/mL Urine Protein (Negative) Urine Blood (Negative) Ur Leukocyte Esterase (Negative) Urine RBC (0-5) /hpf Urine WBC (0-5) /hpf Amorphous Sediment (None) /hpf Urine Bacteria (None) /hpf Hyaline Casts (0-2) /lpf Urine Mucus (None) /hpf 04/16/17 04/16/17 04/16/17 Range/Units 04:05 05:02 06:25 WBC (3.8-10.6) k/uL MCHC (31.0-37.0) g/dL Neutrophils # (1.3-7.7) k/uL Monocytes # (0-1.0) k/uL ABG pH 7.19 L* (7.35-7.45) ABG pCO2 52 H (35-45) mmHg ABG pO2 (83-108) mmHg ABG HCO3 20 L (21-25) mmol/L ABG O2 Saturation 97.1 H (94-97) % Potassium 5.3 H (3.5-5.1) mmol/L Carbon Dioxide 19 L (22-30) mmol/L BUN 47 H (9-20) mg/dL Creatinine 1.40 H (0.66-1.25) mg/dL Glucose 206 H (74-99) mg/dL POC Glucose (mg/dL) 179 H (75-99) mg/dL Calcium 7.8 L (8.4-10.2) mg/dL Phosphorus 5.6 H (2.5-4.5) mg/dL Magnesium 1.5 L (1.6-2.3) mg/dL Troponin I (0.000-0.034) ng/mL Urine Protein (Negative) Urine Blood (Negative) Ur Leukocyte Esterase (Negative) Urine RBC (0-5) /hpf Urine WBC (0-5) /hpf Amorphous Sediment (None) /hpf Urine Bacteria (None) /hpf Hyaline Casts (0-2) /lpf Urine Mucus (None) /hpf 04/16/17 04/16/17 Range/Units 12:08 12:10 WBC (3.8-10.6) k/uL MCHC (31.0-37.0) g/dL Neutrophils # (1.3-7.7) k/uL Monocytes # (0-1.0) k/uL ABG pH 7.30 L (7.35-7.45) ABG pCO2 (35-45) mmHg ABG pO2 161 H (83-108) mmHg ABG HCO3 19 L (21-25) mmol/L ABG O2 Saturation 99.4 H (94-97) % Potassium (3.5-5.1) mmol/L Carbon Dioxide (22-30) mmol/L BUN (9-20) mg/dL Creatinine (0.66-1.25) mg/dL Glucose (74-99) mg/dL POC Glucose (mg/dL) 137 H (75-99) mg/dL Calcium (8.4-10.2) mg/dL Phosphorus (2.5-4.5) mg/dL Magnesium (1.6-2.3) mg/dL Troponin I (0.000-0.034) ng/mL Urine Protein (Negative) Urine Blood (Negative) Ur Leukocyte Esterase (Negative) Urine RBC (0-5) /hpf Urine WBC (0-5) /hpf Amorphous Sediment (None) /hpf Urine Bacteria (None) /hpf Hyaline Casts (0-2) /lpf Urine Mucus (None) /hpf Assessment and Plan Assessment: Impression: #1 Acute hypoxic respiratory failure secondary to an acute exacerbation of systolic congestive heart failure. Acute pneumonia cannot be ruled out. Subsequent deterioration requiring intubation and mechanical ventilatory support. Chest x-ray continues to show evidence of fluid volume overload. #2 Leukocytosis, possible demargintion of WBCs. Sputum, urine and blood cultures are pending. #3 Mild troponin leak possibly oxygen supply and demand mismatch. #4 Coronary artery disease with previous coronary artery bypass grafting. #5 Mildly impaired left ventricular systolic function with ejection fraction 45- 50%. #6 Atrial fibrillation, status post permanent pacemaker implantation in 2013. #7 Diabetes mellitus, type II. #8 Hypertension. #9 Hyperlipidemia. #10 Coronary artery disease with previous coronary artery bypass grafting 4 in 2006. Cardiac catheterization in 2008 treated medically. Plan: The patient was seen and evaluated by Dr. Grossman. His chest x-ray and labs were reviewed. Repeat arterial blood gases. We will await culture results before initiating antibiotics. We will also continue to diurese the patient. Continue to monitor CVP. Decrease the IV fluids to KVO. Consult nutrition for tube feed recommendations. Cardiology has been consulted as well. We'll continue to follow and make further recommendations based on his clinical status. Critical care time 38 minutes. I, the cosigning physician, performed a history & physical examination of the patient. Lungs sounds have crackles in the bilateral posterior bases. Maintaining good O2 saturations in the 90s on 40% FiO2 on current ventilator settings.. I discussed the assessment and plan of care with my nurse practitioner, Pauline Jc. I attest to the above note as dictated by her. Time with Patient: Greater than 30
[2017-04-16] MEDS: SODIUM CHLORIDE 0.9% 1,000 ML IV SCH (13:00)
[2017-04-16 13:39] LABS: Hemoglobin A1C 15.6 % (4.0-6.0)
--- NOTE | 2017-04-16 14:25 | ECHOF ---
Referral Reason:Chest pain and cardiomyopathy MEASUREMENTS -------- HEIGHT: 180.3 cm WEIGHT: 102.5 kg BP: 102/40 IVSd: 1.4 cm (0.6 - 1.1) LVIDd: 4.1 cm (3.9 - 5.3) LVPWd: 1.3 cm (0.6 - 1.1) IVSs: 1.8 cm LVIDs: 1.5 cm LVPWs: 1.8 cm Ao Diam: 3.5 cm (2.0 - 3.7) AV Cusp: 1.9 cm (1.5 - 2.6) LA Diam: 3.9 cm (2.7 - 3.8) MV EXCURSION: 14.230 mm (> 18.000) MV EF SLOPE: 53 mm/s (70 - 150) EPSS: 0.2 cm MV E Heraclio: 0.95 m/s MV DecT: 208 ms MV A Heraclio: 0.28 m/s MV E/A Ratio: 3.33 RAP: 5.00 mmHg RVSP: 41.19 mmHg FINDINGS -------- Paced rhythm. This was a technically difficult study with suboptimal views. The left ventricular size is normal. There is mild concentric left ventricular hypertrophy. Overa ll left ventricular systolic function is low-normal with, an EF between 50 - 55 %. Septum is dyskin etic The right ventricle is normal in size and function. The left atrium is normal in size. The right atrium is normal in size. Aortic valve is trileaflet and is mildly thickened. The mitral valve leaflets are mildly thickened. Mild mitral regurgitation is present. Mild tricuspid regurgitation present. The right ventricular systolic pressure, as measured by Doppl er, is 41.19mmHg. Pulmonic valve appears structurally normal. The aortic root size is normal. The pericardium is normal. CONCLUSIONS -------- 1. Paced rhythm. 2. This was a technically difficult study with suboptimal views. 3. The left ventricular size is normal. 4. There is mild concentric left ventricular hypertrophy. 5. Overall left ventricular systolic function is low-normal with, an EF between 50 - 55 %. 6. Septum is dyskinetic 7. The right ventricle is normal in size and function. 8. The left atrium is normal in size. 9. The right atrium is normal in size. 10. Lumason used 11. Aortic valve is trileaflet and is mildly thickened. 12. The mitral valve leaflets are mildly thickened. 13. Mild mitral regurgitation is present. 14. Mild tricuspid regurgitation present. 15. The right ventricular systolic pressure, as measured by Doppler, is 41.19mmHg. 16. Pulmonic valve appears structurally normal. 17. The aortic root size is normal. 18. The pericardium is normal. RN INFORMATICS: Amanda Upton RDCS
[2017-04-16 17:31] LABS: Glucose,Whole Blood 148 mg/dL (75-99)
--- NOTE | 2017-04-16 18:23 | HP ---
HISTORY AND PHYSICAL I am covering for Dr. Auguste. CHIEF COMPLAINT: Shortness of breath. HISTORY OF PRESENT ILLNESS: This 86-year-old gentleman with a past history of CAD, history of CHF, hypertension, sleep apnea, was recently admitted to hospital on 04/01/2017. The patient was admitted with uncontrolled diabetes mellitus or possibly early diabetic ketoacidosis and possible CHF acute exacerbation. The patient improved significantly. Patient discharged. Currently the patient is complaining of shortness of breath and the patient taken to [facility] Emergency Room and the patient had acute hypoxic respiratory failure. BiPAP was initially tried, but subsequently patient was transferred to ICU and mechanically ventilated. Chest x-ray showed features of CHF and also right lung opacity also. Currently the patient mechanically intubated and on mechanical ventilation. Vent settings are noted. Unable to give a coherent history. Most history taken during my discussion with staff and review of chart at this time. A 2D echo with Doppler was done. Cardiology evaluation in progress and 2D echo with Doppler shows ejection fraction 50 to 55% as well. PAST MEDICAL HISTORY: History of CAD, history of CHF, hypertension, hyperlipidemia, history of diabetes mellitus type 2, history of recent weight loss, cardiac cath. MEDICATIONS: 1. Metformin 1000 mg p.o. b.i.d. 2. Simvastatin 40 mg p.o. 3. Klor-Con 10 mg. 4. Lopressor 50 mg b.i.d. 5. Imdur 30 mg. 6. Lasix 40 mg daily. 7. Vasotec 20 mg daily. 8. Aspirin 81 mg p.o. daily. ALLERGIES: None. FAMILY HISTORY, SOCIAL HISTORY AND REVIEW OF SYSTEMS: Could not be taken because the patient is mechanically intubated. Previous history of smoking per chart. PHYSICAL EXAM: Patient mechanically intubated. Patient is sedated. Pulse 50, blood pressure 120/50, respiration 20, temperature 97.2, pulse ox 98% on mechanical ventilation. FiO2 60%. HEENT: Conjunctivae normal. Oral mucosa moist. NECK: No jugular venous distention. No carotid bruit. No lymph node enlargement. CARDIOVASCULAR: S1, S2 muffled. No S3, no S4. RESPIRATORY: Breath sounds diminished in the bases. A few scattered rhonchi and crackles. Expiratory wheezing. Breathing efforts, patient is on mechanical ventilation. Bilateral scattered rhonchi and crackles. ABDOMEN: Soft, nontender. No mass palpable. LEGS: Minimal edema bilaterally. NERVOUS SYSTEM: Higher functions as mentioned earlier. Patient is sedated and cannot move all the 4 extremities. Patient mechanically ventilated and sedated. LYMPHATICS: No lymphadenopathy in the neck, axillae. SKIN: No ulcer, rash, bleeding. LAB STUDIES: WBC 24.2, hemoglobin 13 and ABGs noted. Creatinine 1.4. ASSESSMENT: 1. Congestive heart failure acute exacerbation with acute on chronic diastolic dysfunction, ejection fraction 50% with acute hypoxic respiratory failure on mechanical ventilation. 2. Rule out right side pneumonia. 3. Increased WBC. 4. Increased creatinine with acute renal failure, possibly prerenal multifactorial. 5. Diabetes mellitus type 2. 6. History of congestive heart failure. 7. History of hyperlipidemia. 8. History of coronary artery disease. 9. History of sleep apnea. 10.History of recent weight loss. 11.History of pacemaker. 12.Hypomagnesemia. RECOMMENDATIONS AND DISCUSSION: I recommend to continue current medication, continue symptomatic treatment. Otherwise I would recommend to continue with diuretics. Continue with mechanical ventilation per Dr. Grossman. Bronchodilators. Obtain cultures. Prognosis guarded because of multiple complex medical issues. Further recommendations to follow. MMODL / IJN: [id number] /
[2017-04-16] MEDS: NOREPINEPHRIN 16 MG-0.9%NS PMX 16 MG/250 ML ML IV SCH (20:17)
[2017-04-16] MEDS: APIXABAN 2.5 MG TABLET PO SCH (20:20)
[2017-04-16] MEDS: HYDROmorphone 0.5 MG/0.5 ML SYRINGE IVP PRN (20:29)
[2017-04-16 23:14] LABS: Glucose,Whole Blood 143 mg/dL (75-99)
[2017-04-17] MEDS: IPRATROPIUM-ALBUTEROL 3 ML NEB INHALATION SCH ×6 (03:05→23:04)
[2017-04-17] MEDS: PROPOFOL 1,000 MG in EMPTY BAG 1 BAG IV SCH ×4 (03:32→20:58)
[2017-04-17 05:03] LABS: Glucose,Whole Blood 166 mg/dL (75-99)
[2017-04-17] MEDS: INSULIN ASPART 100 UNIT/ML 1 ML 10 ML VIAL SQ SCH ×4 (05:03→23:23)
[2017-04-17 05:18] LABS: Basophils % (A) 0 %; Eosinophils # (A) 0.2 k/uL (0-0.7); Eosinophils % (A) 1 %; HCT 40.3 % (39.0-53.0); Hypochromasia Marked; Lymphocytes # (A) 1.5 k/uL (1.0-4.8); Lymphocytes % (A) 9 %; MCH 27.1 pg (25.0-35.0); MCHC 29.9 g/dL (31.0-37.0); MCV 90.8 fL (80.0-100.0); Mean Platelet Volume 8.2; Monocytes # (A) 1.2 k/uL (0-1.0); Monocytes % (A) 8 %; Neutrophils % (A) 80 %; Platelet Count 226 k/uL (150-450); RBC 4.44 m/uL (4.30-5.90); RDW 13.7 % (11.5-15.5); WBC 16.2 k/uL (3.8-10.6)
[2017-04-17 05:20] LABS: ABG Base Excess -6.9 mmol/L; ABG HCO3 19 mmol/L (21-25); ABG PCO2 33 mmHg (35-45); ABG PH 7.36 (7.35-7.45); ABG PO2 237 mmHg (83-108); ABG TCO2 20 mmol/L (19-24)
[2017-04-17 05:23] LABS: Calcium 8.1 mg/dL (8.4-10.2); Phosphorus 4.9 mg/dL (2.5-4.5); Potassium 5.6 mmol/L (3.5-5.1)
--- NOTE | 2017-04-17 06:29 | XR ---
EXAMINATION TYPE: XR chest 1V portable DATE OF EXAM: 04/17/2017 HISTORY: Tube placement. REFERENCE: Previous study dated 04/16/2017. FINDINGS: There has been a midline sternotomy. There is a bipolar pacemaker in place on the left. The patient is ET tube and NG tube remain in place, unchanged in appearance. There is a left internal jugular catheter in place. Its tip is in the superior vena cava. There is worsening right-sided airspace disease. There is patchy left-sided airspace disease. The hea rt is enlarged. Pulmonary vasculature is obscured. Both CP angles are obscured. IMPRESSION: CONTINUING BILATERAL AIRSPACE DISEASE, WORSENING ON THE RIGHT AND IMPROVING ON THE LEFT. DIFFERENTIAL INCLUDES PULMONARY EDEMA OR BILATERAL PNEUMONIAS.
[2017-04-17] MEDS: CHLORHEXIDINE GLUCONATE 15 ML CUP MUCOUS MEM SCH ×2 (09:45→20:57)
[2017-04-17] MEDS: metFORMIN 500 MG TAB PO SCH ×2 (09:45→20:57)
[2017-04-17] MEDS: ATORVASTATIN 20 MG TAB PO SCH (09:46)
[2017-04-17] MEDS: FUROSEMIDE 10 MG/ML 4 ML VIAL IV SCH ×2 (09:46→20:57)
[2017-04-17] MEDS: PANTOPRAZOLE 40 MG/10 ML VIAL IVP SCH (09:46)
[2017-04-17] MEDS: APIXABAN 2.5 MG TABLET PO SCH ×2 (09:46→20:57)
[2017-04-17] MEDS: ASPIRIN 325 MG TAB PO SCH (09:46)
--- NOTE | 2017-04-17 10:08 | P.PN ---
Subjective Progress Note Date: 04/17/17 Principal diagnosis: Respiratory failure Progress note dated 04/17/2017 This is an 86-year-old male who we saw in the emergency room initially with congestive heart failure. He initially was doing relatively well on BiPAP. When he arrived appear in the ICU. Acute respiratory decline requiring intubation mechanical ventilation. Arterial line and central line were both placed. Yesterday he was on the ventilator as he is today. Today we did a daily interruption of sedation. Unfortunately, his respiratory rate off sedation resume his up to 40 breaths per minute. He is currently off the norepinephrine. I asked the nurse to resume the propofol. We'll give it to him at a relatively lower dose. In addition, we'll see if we can't keep him off the norepinephrine. The patient is receiving tube feeds. His IV is just KVO. Today we will start some antibiotics in the form of meropenem. His sputum looks dirty. Nothing is been identified as yet. The patient is having a low-grade temperature. Chest x-ray shows bilateral infiltrates worse on the right than on the left. There are some areas of more dense consolidation in the right midlung. Nimbex has been turned off and kept off. CVP running right around 8-12 cm of water. Objective - Vital Signs Vital signs: Vital Signs Temp 98.6 F 04/17/17 05:00 Pulse 52 L 04/17/17 07:57 Resp 28 H 04/17/17 07:00 BP 119/50 04/17/17 07:00 Pulse Ox 97 04/17/17 07:00 Intake & Output 04/16/17 04/17/17 04/17/17 18:59 06:59 18:59 Intake Total 0474.878 3660.308 153.900 Output Total 715 825 80 Balance 479.672 175.308 73.900 Weight 102.8 kg 105 kg Intake: IV 706 286 26 0.9 640 220 20 0.9 A-Line and CVP 66 66 6 Intake, IV Titration 338.672 369.308 82.900 Amount Magnesium Sulfate-D5w Pmx 200 1 gm In Dextrose/Water 1 100ml.bag @ 100 mls/hr IVPB Q1H [facility] Rx#: [id number] Norepinephrin 16 mg-0.9% 38.672 96.108 24 Ns Pmx 16 mg In 250 ml @ Titrate IV .Q0M [facility] Rx#: [id number] Propofol 1,000 mg In 100.000 273.200 58.900 Empty Bag 1 bag @ Titrate IV .Q0M [facility] Rx#: [id number] Tube Feeding 75 285 45 Other 75 60 Output: Urine 715 825 80 Other: Voiding Method Indwelling Catheter Indwelling Catheter ABP, PAP, CO, CI - Last Documented Arterial Blood Pressure 121/35 - Exam No acute distress, the patient is quite tachypneic off propofol. Oral endotracheal tube and NG tube noted. HEENT examination is grossly unremarkable. As mentioned above endotracheal tube noted. Mucous membranes are moist. Neck supple. Full range of motion. No adenopathy. No thyromegaly. Cardiovascular examination reveals regular rhythm rate. S1-S2 normal. No S3- S4 or murmur. Lungs reveal few scattered rhonchi. Breath sounds are diminished. A few crackles. No wheezes. Abdomen soft bowel sounds are heard. Extremities are intact. Mild edema noted. Some chronic venous stasis changes noted. Skin without rash. Neurologic examination cannot be properly assessed. - Labs CBC & Chem 7: 04/17/17 03:59 04/17/17 03:59 Labs: Abnormal Lab Results - Last 24 Hours (Table) 04/16/17 04/16/17 04/16/17 Range/Units 12:08 12:10 17:30 WBC (3.8-10.6) k/uL Hgb (13.0-17.5) gm/dL MCHC (31.0-37.0) g/dL Neutrophils # (1.3-7.7) k/uL Monocytes # (0-1.0) k/uL ABG pH 7.30 L (7.35-7.45) ABG pCO2 (35-45) mmHg ABG pO2 161 H (83-108) mmHg ABG HCO3 19 L (21-25) mmol/L ABG O2 Saturation 99.4 H (94-97) % Potassium (3.5-5.1) mmol/L Chloride (98-107) mmol/L Carbon Dioxide (22-30) mmol/L BUN (9-20) mg/dL Creatinine (0.66-1.25) mg/dL Glucose (74-99) mg/dL POC Glucose (mg/dL) 137 H 148 H (75-99) mg/dL Calcium (8.4-10.2) mg/dL Phosphorus (2.5-4.5) mg/dL 04/16/17 04/17/17 04/17/17 Range/Units 23:12 03:59 03:59 WBC 16.2 H (3.8-10.6) k/uL Hgb 12.0 L (13.0-17.5) gm/dL MCHC 29.9 L (31.0-37.0) g/dL Neutrophils # 13.0 H (1.3-7.7) k/uL Monocytes # 1.2 H (0-1.0) k/uL ABG pH (7.35-7.45) ABG pCO2 (35-45) mmHg ABG pO2 (83-108) mmHg ABG HCO3 (21-25) mmol/L ABG O2 Saturation (94-97) % Potassium 5.6 H (3.5-5.1) mmol/L Chloride 112 H (98-107) mmol/L Carbon Dioxide 17 L (22-30) mmol/L BUN 56 H (9-20) mg/dL Creatinine 1.60 H (0.66-1.25) mg/dL Glucose 187 H (74-99) mg/dL POC Glucose (mg/dL) 143 H (75-99) mg/dL Calcium 8.1 L (8.4-10.2) mg/dL Phosphorus 4.9 H (2.5-4.5) mg/dL 04/17/17 04/17/17 Range/Units 05:01 05:18 WBC (3.8-10.6) k/uL Hgb (13.0-17.5) gm/dL MCHC (31.0-37.0) g/dL Neutrophils # (1.3-7.7) k/uL Monocytes # (0-1.0) k/uL ABG pH (7.35-7.45) ABG pCO2 33 L (35-45) mmHg ABG pO2 237 H (83-108) mmHg ABG HCO3 19 L (21-25) mmol/L ABG O2 Saturation 100.0 H (94-97) % Potassium (3.5-5.1) mmol/L Chloride (98-107) mmol/L Carbon Dioxide (22-30) mmol/L BUN (9-20) mg/dL Creatinine (0.66-1.25) mg/dL Glucose (74-99) mg/dL POC Glucose (mg/dL) 166 H (75-99) mg/dL Calcium (8.4-10.2) mg/dL Phosphorus (2.5-4.5) mg/dL Microbiology - Last 24 Hours (Table) 04/16/17 14:15 Gram Stain - Preliminary Sputum Sputum Culture - Preliminary 04/16/17 12:20 Urine Culture - Preliminary Urine,Catheterized Assessment and Plan Assessment: Assessment Acute hypoxemic respiratory failure, likely related to underlying acute exacerbation of the patient's systolic congestive heart failure. Pneumonia cannot be ruled out. The area in the right midlung is a bit more dense than the other areas of the lung and could represent infection. Leukocytosis, likely related to stress reaction and emargination or infection Mild troponin leak, likely related to oxygen supply/demand mismatch CAD with previous bypass grafting, 2006 Mildly impaired left ventricular systolic function with an ejection fraction of 45%. Atrial fibrillation, status post permanent pacemaker implantation 2013 Diabetes mellitus, type II Hypertension Hyperlipidemia Plan: Plan dated 04/17/2017 The patient did have daily eruption of sedation today. He became quite tachypneic. Today he was started on antibiotics. So far all cultures are negative. He had blood urine and sputum sampling. The chest x-ray labs and medications are all reviewed. He is on tube feeds. Currently off the norepinephrine. We'll resume the propofol. He is getting IVs at KVO. Additional recommendations and suggestions are forthcoming. Lines have been placed. Prognosis is guarded. Time with Patient: Greater than 30
[2017-04-17] MEDS: MEROPENEM 1 GM in SODIUM CHLORIDE 0.9% 100 ML IVPB SCH ×2 (11:08→21:11)
[2017-04-17 11:48] LABS: Glucose,Whole Blood 176 mg/dL (75-99)
[2017-04-17] MEDS: SODIUM CHLORIDE 0.9% 1,000 ML IV SCH (11:53)
--- NOTE | 2017-04-17 12:53 | P.PN ---
Subjective Progress Note Date: 04/17/17 This 86-year-old gentleman was admitted with increasing shortness of breath and evidence of possible CHF and pneumonia combination. Patient is off Levophed now. His blood pressures running about 120 systolic. His diuresing fairly well. Chest x-ray shows some persistent infiltrates on the right side which may represent pneumonia. Patient is being started on antibiotics. I will start him on small dose of beta blockers and also an DEVENDRA inhibitor. Will continue with IV diuretics Objective - Vital Signs Vital signs: Vital Signs Temp 99.1 F 04/17/17 12:00 Pulse 49 L 04/17/17 12:00 Resp 30 H 04/17/17 12:00 BP 128/50 04/17/17 12:00 Pulse Ox 98 04/17/17 12:00 Intake & Output 04/16/17 04/17/17 04/17/17 18:59 06:59 18:59 Intake Total 5542.274 8386.308 571.151 Output Total 715 825 315 Balance 479.672 175.308 256.151 Weight 102.8 kg 105 kg Intake: IV 706 286 130 0.9 640 220 100 0.9 A-Line and CVP 66 66 30 Intake, IV Titration 338.672 369.308 96.151 Amount Magnesium Sulfate-D5w Pmx 200 1 gm In Dextrose/Water 1 100ml.bag @ 100 mls/hr IVPB Q1H [facility] Rx#: [id number] Norepinephrin 16 mg-0.9% 38.672 96.108 27.751 Ns Pmx 16 mg In 250 ml @ Titrate IV .Q0M [facility] Rx#: [id number] Propofol 1,000 mg In 100.000 273.200 68.400 Empty Bag 1 bag @ Titrate IV .Q0M [facility] Rx#: [id number] Tube Feeding 75 285 315 Other 75 60 30 Output: Urine 715 825 315 Other: Voiding Method Indwelling Catheter Indwelling Catheter Indwelling Catheter ABP, PAP, CO, CI - Last Documented Arterial Blood Pressure 131/42 - Exam GENERAL EXAM: Patient is intubated and sedated HEENT: Normocephalic. Normal reaction of pupils, equal size, normal range of extraocular motion. No erythema or exudates in the throat. NECK: No masses, no nuchal rigidity. CHEST: No chest wall deformity. LUNGS: Diminished breath sounds, more so in right base HEART: Distant heart sounds ABDOMEN: No hepatosplenomegaly, normal bowel sounds, no guarding or rigidity. SKIN: No rashes CENTRAL NERVOUS SYSTEM: Deferred EXTREMITIES: No cyanosis or clubbing] - Labs CBC & Chem 7: 18 03:59 04/17/17 03:59 Labs: Abnormal Lab Results - Last 24 Hours (Table) 04/16/17 04/16/17 04/17/17 Range/Units 17:30 23:12 03:59 WBC 16.2 H (3.8-10.6) k/uL Hgb 12.0 L (13.0-17.5) gm/dL MCHC 29.9 L (31.0-37.0) g/dL Neutrophils # 13.0 H (1.3-7.7) k/uL Monocytes # 1.2 H (0-1.0) k/uL ABG pCO2 (35-45) mmHg ABG pO2 (83-108) mmHg ABG HCO3 (21-25) mmol/L ABG O2 Saturation (94-97) % Potassium (3.5-5.1) mmol/L Chloride (98-107) mmol/L Carbon Dioxide (22-30) mmol/L BUN (9-20) mg/dL Creatinine (0.66-1.25) mg/dL Glucose (74-99) mg/dL POC Glucose (mg/dL) 148 H 143 H (75-99) mg/dL Calcium (8.4-10.2) mg/dL Phosphorus (2.5-4.5) mg/dL 04/17/17 04/17/17 04/17/17 Range/Units 03:59 05:01 05:18 WBC (3.8-10.6) k/uL Hgb (13.0-17.5) gm/dL MCHC (31.0-37.0) g/dL Neutrophils # (1.3-7.7) k/uL Monocytes # (0-1.0) k/uL ABG pCO2 33 L (35-45) mmHg ABG pO2 237 H (83-108) mmHg ABG HCO3 19 L (21-25) mmol/L ABG O2 Saturation 100.0 H (94-97) % Potassium 5.6 H (3.5-5.1) mmol/L Chloride 112 H (98-107) mmol/L Carbon Dioxide 17 L (22-30) mmol/L BUN 56 H (9-20) mg/dL Creatinine 1.60 H (0.66-1.25) mg/dL Glucose 187 H (74-99) mg/dL POC Glucose (mg/dL) 166 H (75-99) mg/dL Calcium 8.1 L (8.4-10.2) mg/dL Phosphorus 4.9 H (2.5-4.5) mg/dL 04/17/17 Range/Units 11:46 WBC (3.8-10.6) k/uL Hgb (13.0-17.5) gm/dL MCHC (31.0-37.0) g/dL Neutrophils # (1.3-7.7) k/uL Monocytes # (0-1.0) k/uL ABG pCO2 (35-45) mmHg ABG pO2 (83-108) mmHg ABG HCO3 (21-25) mmol/L ABG O2 Saturation (94-97) % Potassium (3.5-5.1) mmol/L Chloride (98-107) mmol/L Carbon Dioxide (22-30) mmol/L BUN (9-20) mg/dL Creatinine (0.66-1.25) mg/dL Glucose (74-99) mg/dL POC Glucose (mg/dL) 176 H (75-99) mg/dL Calcium (8.4-10.2) mg/dL Phosphorus (2.5-4.5) mg/dL Microbiology - Last 24 Hours (Table) 04/16/17 12:20 Urine Culture - Final Urine,Catheterized 04/16/17 14:15 Gram Stain - Preliminary Sputum Sputum Culture - Preliminary Assessment and Plan (1) Pneumonia Current Visit: Yes Status: Acute Code(s): J18.9 - PNEUMONIA, UNSPECIFIED ORGANISM SNOMED Code(s): 975901053 (2) Acute respiratory failure Current Visit: Yes Status: Acute Code(s): J96.00 - ACUTE RESPIRATORY FAILURE , UNSP W HYPOXIA OR HYPERCAPNIA SNOMED Code(s): 86350598 (3) CHF (congestive heart failure) Current Visit: Yes Status: Acute Code(s): I50.9 - HEART FAILURE, UNSPECIFIED SNOMED Code(s): 79513813 (4) Diabetes mellitus, type 2 Current Visit: No Status: Acute Code(s): E11.9 - TYPE 2 DIABETES MELLITUS WITHOUT COMPLICATIONS SNOMED Code(s): 24616358 (5) Sepsis Current Visit: Yes Status: Acute Code(s): A41.9 - SEPSIS, UNSPECIFIED ORGANISM SNOMED Code(s): 09349135 (6) CAD (coronary artery disease) Current Visit: Yes Status: Acute Code(s): I25.10 - ATHSCL HEART DISEASE OF [place] CORONARY ARTERY W/O ANG PCTRS SNOMED Code(s): 65576789 (7) Chronic atrial fibrillation Current Visit: Yes Status: Acute Code(s): I48.2 - CHRONIC ATRIAL FIBRILLATION SNOMED Code(s): 040214811 Plan: Patient's clinical status show some improvement. He is off Levophed. Sepsis workup is so far negative. Chest x-ray however shows pneumonia. Patient is on antibiotics. We'll continue current medical therapy. We'll add small dose of beta lucita and DEVENDRA inhibitor
--- NOTE | 2017-04-17 17:27 | PN ---
PROGRESS NOTE DATE OF SERVICE: 04/17/2017 I am covering for Dr. Auguste. This 86-year-old gentleman who was admitted with congestive heart failure acute exacerbation, acute respiratory failure is on mechanical ventilation. After sedation, the patient had tachypnea and could not be weaned off today. The patient is being closely monitored. The most recent chest x-ray which is personally reviewed showed bilateral airspace disease, which is improving mostly on the left side. The patient is also started on IV antibiotics. At this time the white count is still elevated. The potassium 5.3, creatinine is 1.60. PAST MEDICAL HISTORY: Reviewed. REVIEW OF SYSTEMS: Could not be taken. The patient is mechanically ventilated. Vent settings are noted. PHYSICAL EXAM: Pulse is 49, blood pressure 124/44, respiration 29, temperature normal. Pulse ox is 97% on 40% FiO2, 450 tidal volume and 5 of PEEP. HEENT: Conjunctivae normal. Oral mucosa moist. NECK: No jugular venous distention. No carotid bruit. No lymph node enlargement. CARDIOVASCULAR: S1, S2. RESPIRATORY: Breath sounds diminished in the bases. Bilateral scattered rhonchi, right more than the left. ABDOMEN: Soft, nontender. NERVOUS SYSTEM: Mechanically ventilated and sedated. SKIN: No ulcers. LAB STUDIES: WBC 6, hemoglobin 12. ASSESSMENT: 1. Congestive heart failure acute exacerbation with acute on chronic diastolic dysfunction, ejection fraction 50% with acute hypoxic respiratory failure on mechanical ventilation. 2. Possible right-sided pneumonia. 3. Increased WBC. 4. Increased creatinine with acute renal failure possibly prerenal, multifactorial. 5. Diabetes mellitus type 2. 6. History of congestive heart failure. 7. Hyperlipidemia. 8. History of coronary artery disease. 9. History of sleep apnea. 10.History of recent weight loss. 11.History of pacemaker. 12.Hypomagnesemia. 13.FULL CODE. RECOMMENDATIONS AND DISCUSSION: This 86-year-old gentleman who presented with multiple complex medical issues, will monitor the patient closely. Continue the current management and continue with symptomatic treatment. Continue with diuretics. Continue the bronchodilators. Continue mechanical ventilation. Continue broad spectrum IV antibiotics. Cultures have been obtained and sent. Continue the rest of medications and DVT prophylaxis. Otherwise continue with Eliquis. Continue to monitor. Further recommendations to follow. Otherwise Dr. Auguste will follow. MMODL / IJN: [id number] /
[2017-04-17 17:59] LABS: Glucose,Whole Blood 197 mg/dL (75-99)
[2017-04-17] MEDS: NOREPINEPHRIN 16 MG-0.9%NS PMX 16 MG/250 ML ML IV SCH (18:03)
[2017-04-17] MEDS: METOPROLOL TARTRATE 25 MG TAB PO SCH (20:58)
[2017-04-17 23:20] LABS: Glucose,Whole Blood 179 mg/dL (75-99)
[2017-04-18] MEDS: PROPOFOL 1,000 MG in EMPTY BAG 1 BAG IV SCH ×6 (00:04→21:47)
[2017-04-18] MEDS: IPRATROPIUM-ALBUTEROL 3 ML NEB INHALATION SCH ×6 (02:57→22:54)
[2017-04-18 04:20] LABS: ABG Base Excess -3.4 mmol/L; ABG HCO3 22 mmol/L (21-25); ABG Oxygen Saturation 95.5 % (94-97); ABG PCO2 38 mmHg (35-45); ABG PH 7.37 (7.35-7.45); ABG PO2 79 mmHg (83-108); ABG TCO2 23 mmol/L (19-24)
[2017-04-18 04:24] LABS: Basophils % (A) 0 %; Eosinophils # (A) 0.3 k/uL (0-0.7); Eosinophils % (A) 3 %; HCT 37.3 % (39.0-53.0); HGB 11.2 gm/dL (13.0-17.5); Hypochromasia Marked; Lymphocytes # (A) 1.1 k/uL (1.0-4.8); Lymphocytes % (A) 10 %; MCH 27.4 pg (25.0-35.0); MCHC 30.1 g/dL (31.0-37.0); MCV 91.2 fL (80.0-100.0); Mean Platelet Volume 7.1; Monocytes # (A) 0.8 k/uL (0-1.0); Monocytes % (A) 7 %; Neutrophils # (A) 8.9 k/uL (1.3-7.7); Neutrophils % (A) 79 %; Platelet Count 190 k/uL (150-450); RBC 4.09 m/uL (4.30-5.90); RDW 13.7 % (11.5-15.5); WBC 11.3 k/uL (3.8-10.6)
[2017-04-18 05:01] LABS: Calcium 7.7 mg/dL (8.4-10.2); Magnesium 1.8 mg/dL (1.6-2.3); Phosphorus 3.7 mg/dL (2.5-4.5); Potassium 4.1 mmol/L (3.5-5.1)
[2017-04-18] MEDS ORDERED: Magnesium Replacement Protocol 1 EACH MISC MISCELLANE PRN (05:24)
[2017-04-18] MEDS: INSULIN ASPART 100 UNIT/ML 1 ML 10 ML VIAL SQ SCH ×3 (05:41→17:19)
[2017-04-18] MEDS: MAGNESIUM SULFATE-D5W PMX 1 GM in DEXTROSE/WATER 1 100ML.BAG IVPB SCH ×2 (05:46→06:57)
[2017-04-18] MEDS: APIXABAN 2.5 MG TABLET PO SCH ×2 (07:59→20:31)
[2017-04-18] MEDS: CHLORHEXIDINE GLUCONATE 15 ML CUP MUCOUS MEM SCH ×2 (07:59→20:32)
[2017-04-18] MEDS: FUROSEMIDE 10 MG/ML 4 ML VIAL IV SCH ×2 (07:59→20:31)
[2017-04-18] MEDS: metFORMIN 500 MG TAB PO SCH ×2 (07:59→20:31)
[2017-04-18] MEDS: PANTOPRAZOLE 40 MG/10 ML VIAL IVP SCH (07:59)
[2017-04-18] MEDS: ASPIRIN 81 MG PO SCH (07:59)
[2017-04-18] MEDS: ATORVASTATIN 20 MG TAB PO SCH (08:00)
--- NOTE | 2017-04-18 08:38 | XR ---
EXAMINATION TYPE: XR chest 1V portable DATE OF EXAM: 04/18/2017 COMPARISON: 04/17/2017 HISTORY: Tube placement TECHNIQUE: Single frontal view of the chest is obtained. FINDINGS: ET and NG tube stable. Multiple lead pacemaker unchanged. Diffuse bilateral airspace disea se and bilateral effusions noted. Heart size stable. No pneumothorax. IMPRESSION: 1. Diffuse bilateral airspace disease differential diagnosis would include pulmonary edema or bilater al pneumonia.
[2017-04-18] MEDS: MEROPENEM 1 GM in SODIUM CHLORIDE 0.9% 100 ML IVPB SCH ×2 (09:37→20:34)
--- NOTE | 2017-04-18 09:44 | P.PN ---
Subjective Progress Note Date: 04/18/17 Principal diagnosis: Acute hypoxemic restaurant failure secondary to acute exacerbation of systolic congestive heart failure, pneumonia cannot be ruled out. Progress note dated 04/17/2017 This is an 86-year-old male who we saw in the emergency room initially with congestive heart failure. He initially was doing relatively well on BiPAP. When he arrived appear in the ICU. Acute respiratory decline requiring intubation mechanical ventilation. Arterial line and central line were both placed. Yesterday he was on the ventilator as he is today. Today we did a daily interruption of sedation. Unfortunately, his respiratory rate off sedation resume his up to 40 breaths per minute. He is currently off the norepinephrine. I asked the nurse to resume the propofol. We'll give it to him at a relatively lower dose. In addition, we'll see if we can't keep him off the norepinephrine. The patient is receiving tube feeds. His IV is just KVO. Today we will start some antibiotics in the form of meropenem. His sputum looks dirty. Nothing is been identified as yet. The patient is having a low-grade temperature. Chest x-ray shows bilateral infiltrates worse on the right than on the left. There are some areas of more dense consolidation in the right midlung. Nimbex has been turned off and kept off. CVP running right around 8-12 cm of water. On 04/18/2017 patient seen again in the intensive care. He remains intubated on mechanical ventilator, sedated. His maintenance IVs 0.9 normal saline at 20 mL per hour, Diprivan is currently at 45 mics per kilo per minute, levofed is down to 1 marjorie per minute. Patient's is receiving tube feedings with vital height 14 at 50 ML per hour (goal). He is getting free water flushes at 30 ML every 4 hours. Patient is bradycardic, and the paced rhythm with a rate of 49 BPM. Afebrile, hemodynamically stable. Urine output is averaging 100-125 ML per hour. Patient remains on Lasix IV 40 mg every 12 hours, patient in the 567 mL positive fluid balance over the last 24 hours. Chest x-ray shows diffuse bilateral airspace disease, representing pulmonary edema or bilateral pneumonia , overall there is improvement noted in the appearance of the right-sided airspace disease. Blood urine and sputum cultures remain negative so far. Today's labs have been reviewed, the WBCs trending down, to 11.3 down from 16.2 from yesterday, serum sodium is 140, potassium is 4.1, chloride is 111, B1 is 61 , and creatinine is 1.40. Today's blood gas showed 7.37, pCO2 of 38, pO2 of 79 , this was done on FiO2 of 30%. The vent settings are assist-control mode with a rate of 28, tidal volume 450, FiO2 30%, PEEP of 5. Objective - Vital Signs Vital signs: Vital Signs Temp 98.5 F 04/18/17 08:00 Pulse 49 L 04/18/17 08:00 Resp 28 H 04/18/17 08:00 BP 116/50 04/18/17 08:00 Pulse Ox 97 04/18/17 08:00 Intake & Output 04/17/17 04/18/17 04/18/17 18:59 06:59 18:59 Intake Total 3971.521 2379.469 219 Output Total 725 1534 415 Balance 638.712 -71.531 -196 Weight 104.6 kg Intake: IV 312 279 69 0.9 240 240 60 0.9 A-Line and CVP 72 39 9 Intake, IV Titration 261.712 373.469 Amount Meropenem 1 gm In Sodium 100 Chloride 0.9% 100 ml @ 200 mls/hr IVPB Q12HR [facility] Rx#:[id number] Norepinephrin 16 mg-0.9% 66.845 16.923 Ns Pmx 16 mg In 250 ml @ Titrate IV .Q0M [facility] Rx#: [id number] Propofol 1,000 mg In 94.867 356.546 Empty Bag 1 bag @ Titrate IV .Q0M [facility] Rx#: [id number] Tube Feeding 700 750 150 Other 90 60 Output: Urine 725 1530 415 Stool 4 Other: Voiding Method Indwelling Catheter Indwelling Catheter Indwelling Catheter ABP, PAP, CO, CI - Last Documented Arterial Blood Pressure 85/79 - Exam No acute distress, the patient sedated on propofol. Oral endotracheal tube and NG tube noted. HEENT examination is grossly unremarkable. As mentioned above endotracheal tube noted. Mucous membranes are moist. Neck supple. Full range of motion. No adenopathy. No thyromegaly. Cardiovascular examination reveals regular rhythm rate. S1-S2 normal. No S3- S4 or murmur. Lungs reveal few scattered rhonchi. Breath sounds are diminished. A few crackles. No wheezes. Abdomen soft bowel sounds are heard. Extremities are intact. Mild edema noted. Some chronic venous stasis changes noted. Skin without rash. Neurologic examination cannot be properly assessed. - Labs CBC & Chem 7: 04/18/17 03:58 04/18/17 03:58 Labs: Abnormal Lab Results - Last 24 Hours (Table) 04/16/17 04/17/17 04/17/17 Range/Units 04:05 11:46 17:57 WBC (3.8-10.6) k/uL RBC (4.30-5.90) m/uL Hgb (13.0-17.5) gm/dL Hct (39.0-53.0) % MCHC (31.0-37.0) g/dL Neutrophils # (1.3-7.7) k/uL ABG pO2 (83-108) mmHg Chloride (98-107) mmol/L BUN (9-20) mg/dL Creatinine (0.66-1.25) mg/dL Glucose (74-99) mg/dL POC Glucose (mg/dL) 176 H 197 H (75-99) mg/dL Hemoglobin A1c 15.6 H (4.0-6.0) % Calcium (8.4-10.2) mg/dL 04/17/17 04/18/17 04/18/17 Range/Units 23:17 03:58 03:58 WBC 11.3 H (3.8-10.6) k/uL RBC 4.09 L (4.30-5.90) m/uL Hgb 11.2 L (13.0-17.5) gm/dL Hct 37.3 L (39.0-53.0) % MCHC 30.1 L (31.0-37.0) g/dL Neutrophils # 8.9 H (1.3-7.7) k/uL ABG pO2 (83-108) mmHg Chloride 111 H (98-107) mmol/L BUN 61 H (9-20) mg/dL Creatinine 1.40 H (0.66-1.25) mg/dL Glucose 169 H (74-99) mg/dL POC Glucose (mg/dL) 179 H (75-99) mg/dL Hemoglobin A1c (4.0-6.0) % Calcium 7.7 L (8.4-10.2) mg/dL 04/18/17 Range/Units 04:18 WBC (3.8-10.6) k/uL RBC (4.30-5.90) m/uL Hgb (13.0-17.5) gm/dL Hct (39.0-53.0) % MCHC (31.0-37.0) g/dL Neutrophils # (1.3-7.7) k/uL ABG pO2 79 L (83-108) mmHg Chloride (98-107) mmol/L BUN (9-20) mg/dL Creatinine (0.66-1.25) mg/dL Glucose (74-99) mg/dL POC Glucose (mg/dL) (75-99) mg/dL Hemoglobin A1c (4.0-6.0) % Calcium (8.4-10.2) mg/dL Microbiology - Last 24 Hours (Table) 04/16/17 12:52 Blood Culture - Preliminary Blood No Growth after 24 hours 04/16/17 12:20 Urine Culture - Final Urine,Catheterized 04/16/17 14:15 Gram Stain - Preliminary Sputum Sputum Culture - Preliminary Assessment and Plan Plan: Assessment: 1. Acute hypoxemic respiratory failure, likely related to underlying acute exacerbation of the patient's systolic congestive heart failure. Pneumonia cannot be ruled out. The area in the right midlung is a bit more dense than the other areas of the lung and could represent infection. 2. Leukocytosis, likely related to stress reaction and emargination or infection 3. Mild troponin leak, likely related to oxygen supply/demand mismatch 4. CAD with previous bypass grafting, 2006 5. Mildly impaired left ventricular systolic function with an ejection fraction of 45%. 6. Atrial fibrillation, status post permanent pacemaker implantation 2013 7. Diabetes mellitus, type II 8. Hypertension 9. Hyperlipidemia Plan: We'll give the patient daily interruption of sedation, and give him a spontaneous breathing trial with PSV of 8/CPAP 5, patient was only able to tolerate for 10 minutes, and he failed his breathing trial, became very tachypneic and using accessory muscles of breathing. Patient was placed back on assist control mode. Will be placed back on sedation with propofol drip. We 'll continue with current antibiotic coverage, IV diuresis. Continue tube feedings with Vital HP. We'll obtain a blood gas in the morning, repeat chest x -ray and blood work. I performed a history & physical examination of the patient and discussed their management with my nurse practitioner, Elma Jason. I reviewed the nurse practitioner's note and agree with the documented findings and plan of care. Lung sounds are positive for diminished with a few crackles. The findings and the impression was discussed with the patient. I attest to the documentation by the nurse practitioner. Time with Patient: Greater than 30
--- NOTE | 2017-04-18 10:56 | P.PN ---
Subjective Progress Note Date: 04/18/17 This 86-year-old gentleman was admitted with increasing shortness of breath and evidence of possible CHF and pneumonia combination. Patient is off Levophed now. His blood pressures running about 120 systolic. His diuresing fairly well. Chest x-ray shows some persistent infiltrates on the right side which may represent pneumonia. Patient is being started on antibiotics. I will start him on small dose of beta blockers and also an DEVENDRA inhibitor. Will continue with IV diuretics. Progress note for 04/18/2017: This patient is admitted with restricted failure related to CHF and pneumonia. He she is diuresing well. Chest x-ray shows mild improvement, but there is bilateral infiltrates. Patient is also on antibiotics. Attempts at weaning were not successful. We'll continue current medical therapy. Prognosis is guarded Objective - Vital Signs Vital signs: Vital Signs Temp 98.5 F 04/18/17 08:00 Pulse 49 L 04/18/17 10:00 Resp 28 H 04/18/17 10:00 BP 118/43 04/18/17 10:00 Pulse Ox 93 L 04/18/17 10:00 Intake & Output 04/17/17 04/18/17 04/18/17 18:59 06:59 18:59 Intake Total 9367.677 1291.469 242 Output Total 725 1534 665 Balance 638.712 -71.531 -423 Weight 104.6 kg Intake: IV 312 279 92 0.9 240 240 80 0.9 A-Line and CVP 72 39 12 Intake, IV Titration 261.712 373.469 Amount Meropenem 1 gm In Sodium 100 Chloride 0.9% 100 ml @ 200 mls/hr IVPB Q12HR [facility] Rx#:[id number] Norepinephrin 16 mg-0.9% 66.845 16.923 Ns Pmx 16 mg In 250 ml @ Titrate IV .Q0M [facility] Rx#: [id number] Propofol 1,000 mg In 94.867 356.546 Empty Bag 1 bag @ Titrate IV .Q0M [facility] Rx#: [id number] Tube Feeding 700 750 150 Other 90 60 Output: Urine 725 1530 665 Stool 4 Other: Voiding Method Indwelling Catheter Indwelling Catheter Indwelling Catheter ABP, PAP, CO, CI - Last Documented Arterial Blood Pressure 85/79 - Exam GENERAL EXAM: Patient is intubated and sedated HEENT: Normocephalic. Normal reaction of pupils, equal size, normal range of extraocular motion. No erythema or exudates in the throat. NECK: No masses, no nuchal rigidity. CHEST: No chest wall deformity. LUNGS: Diminished breath sounds, more so in right base HEART: Distant heart sounds ABDOMEN: No hepatosplenomegaly, normal bowel sounds, no guarding or rigidity. SKIN: No rashes CENTRAL NERVOUS SYSTEM: Deferred EXTREMITIES: No cyanosis or clubbing] - Labs CBC & Chem 7: 04/18/17 03:58 04/18/17 03:58 Labs: Abnormal Lab Results - Last 24 Hours (Table) 04/16/17 04/17/17 04/17/17 Range/Units 04:05 11:46 17:57 WBC (3.8-10.6) k/uL RBC (4.30-5.90) m/uL Hgb (13.0-17.5) gm/dL Hct (39.0-53.0) % MCHC (31.0-37.0) g/dL Neutrophils # (1.3-7.7) k/uL ABG pO2 (83-108) mmHg Chloride (98-107) mmol/L BUN (9-20) mg/dL Creatinine (0.66-1.25) mg/dL Glucose (74-99) mg/dL POC Glucose (mg/dL) 176 H 197 H (75-99) mg/dL Hemoglobin A1c 15.6 H (4.0-6.0) % Calcium (8.4-10.2) mg/dL 04/17/17 04/18/17 04/18/17 Range/Units 23:17 03:58 03:58 WBC 11.3 H (3.8-10.6) k/uL RBC 4.09 L (4.30-5.90) m/uL Hgb 11.2 L (13.0-17.5) gm/dL Hct 37.3 L (39.0-53.0) % MCHC 30.1 L (31.0-37.0) g/dL Neutrophils # 8.9 H (1.3-7.7) k/uL ABG pO2 (83-108) mmHg Chloride 111 H (98-107) mmol/L BUN 61 H (9-20) mg/dL Creatinine 1.40 H (0.66-1.25) mg/dL Glucose 169 H (74-99) mg/dL POC Glucose (mg/dL) 179 H (75-99) mg/dL Hemoglobin A1c (4.0-6.0) % Calcium 7.7 L (8.4-10.2) mg/dL 04/18/17 Range/Units 04:18 WBC (3.8-10.6) k/uL RBC (4.30-5.90) m/uL Hgb (13.0-17.5) gm/dL Hct (39.0-53.0) % MCHC (31.0-37.0) g/dL Neutrophils # (1.3-7.7) k/uL ABG pO2 79 L (83-108) mmHg Chloride (98-107) mmol/L BUN (9-20) mg/dL Creatinine (0.66-1.25) mg/dL Glucose (74-99) mg/dL POC Glucose (mg/dL) (75-99) mg/dL Hemoglobin A1c (4.0-6.0) % Calcium (8.4-10.2) mg/dL Microbiology - Last 24 Hours (Table) 04/16/17 14:15 Gram Stain - Preliminary Sputum Sputum Culture - Preliminary Presumptive Staph aureus 04/16/17 12:52 Blood Culture - Preliminary Blood No Growth after 24 hours 04/16/17 12:20 Urine Culture - Final Urine,Catheterized Assessment and Plan (1) Pneumonia Current Visit: Yes Status: Acute Code(s): J18.9 - PNEUMONIA, UNSPECIFIED ORGANISM SNOMED Code(s): 527298167 (2) Acute respiratory failure Current Visit: Yes Status: Acute Code(s): J96.00 - ACUTE RESPIRATORY FAILURE , UNSP W HYPOXIA OR HYPERCAPNIA SNOMED Code(s): 82216697 (3) CHF (congestive heart failure) Current Visit: Yes Status: Acute Code(s): I50.9 - HEART FAILURE, UNSPECIFIED SNOMED Code(s): 13402258 (4) Diabetes mellitus, type 2 Current Visit: No Status: Acute Code(s): E11.9 - TYPE 2 DIABETES MELLITUS WITHOUT COMPLICATIONS SNOMED Code(s): 13243074 (5) Sepsis Current Visit: Yes Status: Acute Code(s): A41.9 - SEPSIS, UNSPECIFIED ORGANISM SNOMED Code(s): 03671552 (6) CAD (coronary artery disease) Current Visit: Yes Status: Acute Code(s): I25.10 - ATHSCL HEART DISEASE OF [place] CORONARY ARTERY W/O ANG PCTRS SNOMED Code(s): 80011498 (7) Chronic atrial fibrillation Current Visit: Yes Status: Acute Code(s): I48.2 - CHRONIC ATRIAL FIBRILLATION SNOMED Code(s): 568373527 Plan: Patient has shown mild improvement. Still has significant bilateral infiltrates. Attempts at weaning were unsuccessful . Patient is on antibiotics and diuretic therapy. We'll continue current medical therapy. Prognosis guarded
[2017-04-18] MEDS: HYDROmorphone 0.5 MG/0.5 ML SYRINGE IVP PRN (11:01)
[2017-04-18 11:40] LABS: Glucose,Whole Blood 192 mg/dL (75-99)
[2017-04-18] MEDS: METOPROLOL TARTRATE 25 MG TAB PO SCH ×2 (12:49→20:46)
[2017-04-18] MEDS: LISINOPRIL 2.5 MG TAB PO SCH (12:49)
[2017-04-18] MEDS: SODIUM CHLORIDE 0.9% 1,000 ML IV SCH (12:53)
[2017-04-18 17:17] LABS: Glucose,Whole Blood 162 mg/dL (75-99)
[2017-04-18] MEDS: NOREPINEPHRIN 16 MG-0.9%NS PMX 16 MG/250 ML ML IV SCH (20:32)
[2017-04-19 01:00] LABS: Glucose,Whole Blood 167 mg/dL (75-99)
[2017-04-19] MEDS: INSULIN ASPART 100 UNIT/ML 1 ML 10 ML VIAL SQ SCH ×5 (01:03→23:30)
[2017-04-19] MEDS: PROPOFOL 1,000 MG in EMPTY BAG 1 BAG IV SCH ×4 (01:03→14:00)
[2017-04-19] MEDS: IPRATROPIUM-ALBUTEROL 3 ML NEB INHALATION SCH ×6 (02:50→23:33)
[2017-04-19 04:29] LABS: ABG Base Excess -1.8 mmol/L; ABG HCO3 23 mmol/L (21-25); ABG Oxygen Saturation 97.3 % (94-97); ABG PCO2 38 mmHg (35-45); ABG PH 7.39 (7.35-7.45); ABG PO2 89 mmHg (83-108); ABG TCO2 24 mmol/L (19-24)
[2017-04-19 05:01] LABS: Basophils % (A) 0 %; Eosinophils # (A) 0.4 k/uL (0-0.7); Eosinophils % (A) 4 %; HCT 38.9 % (39.0-53.0); HGB 11.5 gm/dL (13.0-17.5); Hypochromasia Moderate; Lymphocytes # (A) 1.3 k/uL (1.0-4.8); Lymphocytes % (A) 12 %; MCH 26.7 pg (25.0-35.0); MCHC 29.5 g/dL (31.0-37.0); MCV 90.4 fL (80.0-100.0); Mean Platelet Volume 7.4; Monocytes # (A) 0.8 k/uL (0-1.0); Monocytes % (A) 7 %; Neutrophils # (A) 8.4 k/uL (1.3-7.7); Neutrophils % (A) 76 %; Platelet Count 210 k/uL (150-450); RDW 13.9 % (11.5-15.5)
[2017-04-19 05:11] LABS: Anion Gap 9 mmol/L; Blood Urea Nitrogen 68 mg/dL (9-20); Calcium 7.9 mg/dL (8.4-10.2); Carbon Dioxide 25 mmol/L (22-30); Chloride 110 mmol/L (98-107); Glucose 155 mg/dL (74-99); Magnesium 2.1 mg/dL (1.6-2.3); Potassium 4.1 mmol/L (3.5-5.1); Sodium 144 mmol/L (137-145)
[2017-04-19 06:55] LABS: Glucose,Whole Blood 153 mg/dL (75-99)
[2017-04-19] MEDS: PANTOPRAZOLE 40 MG/10 ML VIAL IVP SCH (08:01)
[2017-04-19] MEDS: CHLORHEXIDINE GLUCONATE 15 ML CUP MUCOUS MEM SCH ×2 (08:01→20:50)
[2017-04-19] MEDS: FUROSEMIDE 10 MG/ML 4 ML VIAL IV SCH ×2 (08:01→20:50)
[2017-04-19] MEDS: APIXABAN 2.5 MG TABLET PO SCH ×2 (08:01→20:51)
[2017-04-19] MEDS: ASPIRIN 81 MG PO SCH (08:01)
[2017-04-19] MEDS: metFORMIN 500 MG TAB PO SCH ×2 (08:01→20:50)
[2017-04-19] MEDS: ATORVASTATIN 20 MG TAB PO SCH (08:01)
--- NOTE | 2017-04-19 08:05 | P.PN ---
Subjective Progress Note Date: 04/19/17 Principal diagnosis: Respiratory failure Progress note dated 04/17/2017 This is an 86-year-old male who we saw in the emergency room initially with congestive heart failure. He initially was doing relatively well on BiPAP. When he arrived appear in the ICU. Acute respiratory decline requiring intubation mechanical ventilation. Arterial line and central line were both placed. Yesterday he was on the ventilator as he is today. Today we did a daily interruption of sedation. Unfortunately, his respiratory rate off sedation resume his up to 40 breaths per minute. He is currently off the norepinephrine. I asked the nurse to resume the propofol. We'll give it to him at a relatively lower dose. In addition, we'll see if we can't keep him off the norepinephrine. The patient is receiving tube feeds. His IV is just KVO. Today we will start some antibiotics in the form of meropenem. His sputum looks dirty. Nothing is been identified as yet. The patient is having a low-grade temperature. Chest x-ray shows bilateral infiltrates worse on the right than on the left. There are some areas of more dense consolidation in the right midlung. Nimbex has been turned off and kept off. CVP running right around 8-12 cm of water. Progress note dated 04/19/2017 This is an 86-year-old male who was initially seen in the emergency room a couple days ago with congestive heart failure and impending respiratory failure. Initially doing relatively well on BiPAP therapy but when he was transferred up to the into the intensive care unit, he developed acute respiratory failure with hypoxemic respiratory failure requiring intubation and mechanical ventilation. A central line and art line was placed. There are line subsequently has gone back. The patient remains on the ventilator. Try daily eruption of sedation with spontaneous breathing trials for the last couple of days and the patient has done very poorly. Nonetheless will try again. Currently, his vent settings include the assist control mode rate of 28 , tidal volume 450, FiO2 30%, and PEEP of 5. The patient's blood gases show a PaO2 of 89 a PaCO2 of 38 and a pH of 7.39. A faint patient is on vital high protein at a rate of 50 mL an hour with a goal of 50. Norepinephrine was turned off at 02 100. The patient's on propofol at 50 mics per kilogram per minute and also a saline IV at 20 mL an hour. We will attempt another daily eruption of sedation spontaneous breathing trial today. Chest x-ray my opinion is a bit improved but he still has some dense consolidation in the right midlung which may represent pneumonia. Objective - Vital Signs Vital signs: Vital Signs Temp 98.4 F 04/19/17 04:00 Pulse 49 L 04/19/17 07:42 Resp 31 H 04/19/17 07:00 BP 113/45 04/19/17 07:00 Pulse Ox 96 04/19/17 07:00 Intake & Output 04/18/17 04/19/17 04/19/17 18:59 06:59 18:59 Intake Total 1536 1465.705 196 Output Total 1155 1061 77 Balance 381 404.705 119 Weight 104.6 kg 104.1 kg Intake: IV 276 276 46 0.9 240 240 40 0.9 A-Line and CVP 36 36 6 Intake, IV Titration 300 299.705 Amount Norepinephrin 16 mg-0.9% 45.625 Ns Pmx 16 mg In 250 ml @ Titrate IV .Q0M [facility] Rx#: [id number] Propofol 1,000 mg In 300 254.08 Empty Bag 1 bag @ Titrate IV .Q0M [facility] Rx#: [id number] Tube Feeding 900 800 150 Other 60 90 Output: Urine 1155 1060 77 Stool 1 Other: Voiding Method Indwelling Catheter Indwelling Catheter ABP, PAP, CO, CI - Last Documented Arterial Blood Pressure 85/79 - Exam No acute distress, the patient is quite tachypneic off propofol. Oral endotracheal tube and NG tube noted. HEENT examination is grossly unremarkable. As mentioned above endotracheal tube noted. Mucous membranes are moist. Neck supple. Full range of motion. No adenopathy. No thyromegaly. Cardiovascular examination reveals regular rhythm rate. S1-S2 normal. No S3- S4 or murmur. Lungs reveal few scattered rhonchi. Breath sounds are diminished. A few crackles. No wheezes. Abdomen soft bowel sounds are heard. Extremities are intact. Mild edema noted. Some chronic venous stasis changes noted. Skin without rash. Neurologic examination cannot be properly assessed. - Labs CBC & Chem 7: 04/19/17 04:30 04/19/17 04:30 Labs: Abnormal Lab Results - Last 24 Hours (Table) 0204/18/17 04/19/17 Range/Units 11:37 17:16 00:58 WBC (3.8-10.6) k/uL Hgb (13.0-17.5) gm/dL Hct (39.0-53.0) % MCHC (31.0-37.0) g/dL Neutrophils # (1.3-7.7) k/uL ABG O2 Saturation (94-97) % Chloride (98-107) mmol/L BUN (9-20) mg/dL Glucose (74-99) mg/dL POC Glucose (mg/dL) 192 H 162 H 167 H (75-99) mg/dL Calcium (8.4-10.2) mg/dL 04/19/17 04/19/17 04/19/17 Range/Units 04:27 04:30 04:30 WBC 11.0 H (3.8-10.6) k/uL Hgb 11.5 L (13.0-17.5) gm/dL Hct 38.9 L (39.0-53.0) % MCHC 29.5 L (31.0-37.0) g/dL Neutrophils # 8.4 H (1.3-7.7) k/uL ABG O2 Saturation 97.3 H (94-97) % Chloride 110 H (98-107) mmol/L BUN 68 H (9-20) mg/dL Glucose 155 H (74-99) mg/dL POC Glucose (mg/dL) (75-99) mg/dL Calcium 7.9 L (8.4-10.2) mg/dL 04/19/17 Range/Units 06:53 WBC (3.8-10.6) k/uL Hgb (13.0-17.5) gm/dL Hct (39.0-53.0) % MCHC (31.0-37.0) g/dL Neutrophils # (1.3-7.7) k/uL ABG O2 Saturation (94-97) % Chloride (98-107) mmol/L BUN (9-20) mg/dL Glucose (74-99) mg/dL POC Glucose (mg/dL) 153 H (75-99) mg/dL Calcium (8.4-10.2) mg/dL Microbiology - Last 24 Hours (Table) 04/16/17 12:52 Blood Culture - Preliminary Blood No Growth after 48 hours 04/16/17 14:15 Gram Stain - Preliminary Sputum Sputum Culture - Preliminary Presumptive Staph aureus Assessment and Plan Assessment: Assessment Acute hypoxemic respiratory failure, likely related to underlying acute exacerbation of the patient's systolic congestive heart failure. Pneumonia cannot be ruled out. The area in the right midlung is a bit more dense than the other areas of the lung and could represent infection. Leukocytosis, likely related to stress reaction and emargination or infection Mild troponin leak, likely related to oxygen supply/demand mismatch CAD with previous bypass grafting, 2006 Mildly impaired left ventricular systolic function with an ejection fraction of 45%. Atrial fibrillation, status post permanent pacemaker implantation 2013 Diabetes mellitus, type II Hypertension Hyperlipidemia Plan: Plan dated 04/17/2017 The patient did have daily eruption of sedation today. He became quite tachypneic. Today he was started on antibiotics. So far all cultures are negative. He had blood urine and sputum sampling. The chest x-ray labs and medications are all reviewed. He is on tube feeds. Currently off the norepinephrine. We'll resume the propofol. He is getting IVs at KVO. Additional recommendations and suggestions are forthcoming. Lines have been placed. Prognosis is guarded. Plan dated 04/19/2017 The patient's chest x-ray my opinion show some clearing. The patient's labs x- rays and medications are all reviewed. The patient norepinephrine was turned off at 0200. The arterial blood gases are stable on 30% and PEEP of 5. We'll do a daily eruption of sedation and a spontaneous breathing trial today. Prognosis is guarded. We may reinsert an art line today. A central line was inserted a couple days ago. No additional recommendations are made. Prognosis is guarded. Time plan with patient was 38 minutes. Time with Patient: Greater than 30
[2017-04-19] MEDS ORDERED: VANCOMYCIN IV PER PHARMACY 1 EACH MISC MISCELLANE PRN (08:07)
[2017-04-19] MEDS: MEROPENEM 1 GM in SODIUM CHLORIDE 0.9% 100 ML IVPB SCH ×2 (08:12→20:50)
--- NOTE | 2017-04-19 08:19 | XR ---
EXAMINATION TYPE: XR chest 1V portable DATE OF EXAM: 04/19/2017 COMPARISON: Prior chest x-ray 04/18/2017 HISTORY: Intubated TECHNIQUE: Single frontal view of the chest is obtained. FINDINGS: Endotracheal tube, NG tube, left jugular central venous catheter are again noted and stabl e. Patient is post median sternotomy. Heart is unchanged. Pacemaker again noted with leads in the rig ht atrium and ventricle. No evident pneumothorax. Patchy bibasilar airspace disease is again seen. Th ere are overlying leads, artifact. IMPRESSION: Correlate for possible ARDS, pneumonia, pulmonary edema, follow-up recommended.
[2017-04-19] MEDS: HYDROmorphone 0.5 MG/0.5 ML SYRINGE IVP PRN ×3 (08:41→22:40)
--- NOTE | 2017-04-19 08:56 | CDI ---
Last Revision, February 2017 Documentation Clarification Form Date: 04/19/2017 8:03:00 AM From: Radha Navas RN, CCDS Admit Date: 04/15/2017 11:27:00 AM Patient Name: Sanjeev Robb Visit Number: [id number] Discharge Date: ATTENTION: The Clinical Documentation Specialists (CDI) and [facility] Coding Staff appreciate your assistance in clarifying documentation. Please respond to the clarification below the line at the bottom and electronically sign. The CDI & [facility] Coding staff will review the response and follow-up if needed. Please note: Queries are made part of the Legal Health Record. If you have any questions, please contact the author of this message via ITS. Dr. Antonio Auguste/Donna Canseco [employer]-[facility] 04/16/17 cardiology consult has documentation of pneumonia and sepsis with exacerbation of CHF. History/Risk Factors: CHF, COPD, DM type II, Hypertension, Clinical Indicators: Present with difficulty in breathing. He alert, anxious respiratory distress, Lungs rales, patient has accessory muscle use. He denies fever. EKG: Paced rhythm at 76, WBC/Left Shift: 26.3, Neutrophils 22.9, Troponin I 0.046, BNP 7020 CXR: Pulmonary edema, Blood cultures: Pending No Growth after 48 hours Sputum culture Presumptive Staph aureus Vitals signs on admission: 201/93 92 16 97.1 87 % RA Vital signs 04/15/17 at 13:30 95/48 52 28 89 % Vital signs 04/15/17 at 13:50 79/35 49 31 04/16/17 H/P: rule out right side pneumonia Treatment: Levophed drip (titrate) Vancomyicin IV Meropenem IV Lasix IV Duoneb's per orders IV fluid bolus 04/15/17 Pulmonary Consult: acute hypoxic respiratory failure secondary to ac exacerbation of systolic congestive heart failure. Acute pneumonia cannot be ruled out. 04/17/17 Cardiology progress note: Evidence of possible CHF and pneumonia combination. Patient is off Levophed now. Chest x-ray persistent infiltrates on the right side which may represent pneumonia. Sepsis workup so far negative. CXR however shows pneumonia. Patient is on antibiotics. In your professional opinion, please clarify if these findings signify one of the following conditions, whether the condition is POA, and cause, if known: Condition Sepsis ruled out SIRS, without underlying infectious process Sepsis ruled in (underlying infectious process and POA ) Severe Sepsis Septic Shock Other, please specify Unable to determine Present on Admission: Yes No Identify the (suspected) organism Link or clarify if there is associated (due to/with): Organ failure Shock SIRS Criteria..2 or more of the following may indicate SIRS: Temperature < 96.8F (36C) or > 101.0F (38.3C) Heart Rate > 90 bpm Respiratory Rate > 20 breaths/min or PaCO2 < 32 mmHg White Blood Cell Count > 12,000 or < 4,000 cells/mm3 or > 10% bands Lactate >2.0 mmol/L (>4.0 is equivalent to septic shock) Please continue to document in your progress notes and discharge summary in order to capture severity of illness and risk of mortality. Include clinical findings that support your diagnosis. [facility]
[2017-04-19] MEDS: VANCOMYCIN 1,750 MG in SODIUM CHLORIDE 0.9% 250 ML IVPB SCH (09:11)
[2017-04-19] MEDS: METOPROLOL TARTRATE 25 MG TAB PO SCH ×2 (09:27→20:53)
[2017-04-19] MEDS: LISINOPRIL 2.5 MG TAB PO SCH (09:27)
--- NOTE | 2017-04-19 09:47 | CDI ---
Last Revision, February 2017 Documentation Clarification Form Date: 04/19/2017 9:00:00 AM From: Radha Navas RN, CCDS Admit Date: 04/15/2017 11:27:00 AM Patient Name: Sanjeev Robb Visit Number: [id number] Discharge Date: ATTENTION: The Clinical Documentation Specialists (CDI) and [facility] Coding Staff appreciate your assistance in clarifying documentation. Please respond to the clarification below the line at the bottom and electronically sign. The CDI & [facility] Coding staff will review the response and follow-up if needed. Please note: Queries are made part of the Legal Health Record. If you have any questions, please contact the author of this message via ITS. Dr. Domenic Grossman 04/15/17 mild troponin leak possible oxygen supply and demand mismatch is documented in your progress notes Patient history/risk factors: CHF, COPD, DM Type II, Hypertension, CAD, Chronic atrial fibrillation, Ischemic heart disease, Pacemaker Clinical Indicators: Present with complaints of increasing shortness of breath cough and congestion and lower extremity edema. Positive orthopnea. Lungs: crackles in bilateral posterior bases Lab findings: WBC 26.3, BNP 7020, Troponin 0.046, 0.083, 0.104 Chest x-ray: diffuse airspace disease with bilateral effusion and acute pulmonary edema Vital Signs: 201/93 92 16 97.1 87 % vent mask ECHO: EF between 50-55 % Treatment: Levophed drip (now dc) IV Lasix, Duonebs's per orders, IV Fluid bolus Mechanical ventilation management Monitor Labs Meropenem IV, Vancomycin IV Eliquis PO Lopressor PO In your professional opinion, can you please further clarify oxygen supply and demand mismatch? Demand (coronary) ischemia with myocardial infarction type 2 ( specify underlying cause) Other, please specify Unable to determine Please continue to document in your progress notes and discharge summary in order to capture severity of illness and risk of mortality. Include clinical findings that support your diagnosis. MTDD
--- NOTE | 2017-04-19 10:50 | P.PN ---
Subjective Progress Note Date: 04/19/17 This 86-year-old gentleman was admitted with increasing shortness of breath and evidence of possible CHF and pneumonia combination. Patient is off Levophed now. His blood pressures running about 120 systolic. His diuresing fairly well. Chest x-ray shows some persistent infiltrates on the right side which may represent pneumonia. Patient is being started on antibiotics. I will start him on small dose of beta blockers and also an DEVENDRA inhibitor. Will continue with IV diuretics. Progress note for 04/18/2017: This patient is admitted with restricted failure related to CHF and pneumonia. He she is diuresing well. Chest x-ray shows mild improvement, but there is bilateral infiltrates. Patient is also on antibiotics. Attempts at weaning were not successful. We'll continue current medical therapy. Prognosis is guarded. Progress note for 04/19/2017. Patient is still intubated . Unable to extubate. His sputum cultures are growing staph. A chest x-ray still shows bilateral infiltrates. Apparently, the family doesn't want patient to have tracheostomy. There is a consideration that patient may be made comfort care. Prognosis is poor. Continue current medical therapy Objective - Vital Signs Vital signs: Vital Signs Temp 98.4 F 04/19/17 04:00 Pulse 49 L 04/19/17 07:42 Resp 31 H 04/19/17 07:00 BP 113/45 04/19/17 07:00 Pulse Ox 96 04/19/17 07:00 Intake & Output 04/18/17 04/19/17 04/19/17 18:59 06:59 18:59 Intake Total 1536 1465.705 196 Output Total 1155 1061 77 Balance 381 404.705 119 Weight 104.6 kg 104.1 kg Intake: IV 276 276 46 0.9 240 240 40 0.9 A-Line and CVP 36 36 6 Intake, IV Titration 300 299.705 Amount Norepinephrin 16 mg-0.9% 45.625 Ns Pmx 16 mg In 250 ml @ Titrate IV .Q0M [facility] Rx#: [id number] Propofol 1,000 mg In 300 254.08 Empty Bag 1 bag @ Titrate IV .Q0M [facility] Rx#: [id number] Tube Feeding 900 800 150 Other 60 90 Output: Urine 1155 1060 77 Stool 1 Other: Voiding Method Indwelling Catheter Indwelling Catheter Indwelling Catheter ABP, PAP, CO, CI - Last Documented Arterial Blood Pressure 85/79 - Exam GENERAL EXAM: Patient is intubated and sedated HEENT: Normocephalic. Normal reaction of pupils, equal size, normal range of extraocular motion. No erythema or exudates in the throat. NECK: No masses, no nuchal rigidity. CHEST: No chest wall deformity. LUNGS: Diminished breath sounds, more so in right base HEART: Distant heart sounds ABDOMEN: No hepatosplenomegaly, normal bowel sounds, no guarding or rigidity. SKIN: No rashes CENTRAL NERVOUS SYSTEM: Deferred EXTREMITIES: No cyanosis or clubbing] - Labs CBC & Chem 7: 04/19/17 04:30 04/19/17 04:30 Labs: Abnormal Lab Results - Last 24 Hours (Table) 04/18/17 04/18/17 04/19/17 Range/Units 11:37 17:16 00:58 WBC (3.8-10.6) k/uL Hgb (13.0-17.5) gm/dL Hct (39.0-53.0) % MCHC (31.0-37.0) g/dL Neutrophils # (1.3-7.7) k/uL ABG O2 Saturation (94-97) % Chloride (98-107) mmol/L BUN (9-20) mg/dL Glucose (74-99) mg/dL POC Glucose (mg/dL) 192 H 162 H 167 H (75-99) mg/dL Calcium (8.4-10.2) mg/dL 04/19/17 04/19/17 04/19/17 Range/Units 04:27 04:30 04:30 WBC 11.0 H (3.8-10.6) k/uL Hgb 11.5 L (13.0-17.5) gm/dL Hct 38.9 L (39.0-53.0) % MCHC 29.5 L (31.0-37.0) g/dL Neutrophils # 8.4 H (1.3-7.7) k/uL ABG O2 Saturation 97.3 H (94-97) % Chloride 110 H (98-107) mmol/L BUN 68 H (9-20) mg/dL Glucose 155 H (74-99) mg/dL POC Glucose (mg/dL) (75-99) mg/dL Calcium 7.9 L (8.4-10.2) mg/dL 04/19/17 Range/Units 06:53 WBC (3.8-10.6) k/uL Hgb (13.0-17.5) gm/dL Hct (39.0-53.0) % MCHC (31.0-37.0) g/dL Neutrophils # (1.3-7.7) k/uL ABG O2 Saturation (94-97) % Chloride (98-107) mmol/L BUN (9-20) mg/dL Glucose (74-99) mg/dL POC Glucose (mg/dL) 153 H (75-99) mg/dL Calcium (8.4-10.2) mg/dL Microbiology - Last 24 Hours (Table) 04/16/17 14:15 Gram Stain - Final Sputum Sputum Culture - Final Staphylococcus aureus 04/16/17 12:52 Blood Culture - Preliminary Blood No Growth after 48 hours Assessment and Plan (1) Pneumonia Current Visit: Yes Status: Acute Code(s): J18.9 - PNEUMONIA, UNSPECIFIED ORGANISM SNOMED Code(s): 156505021 (2) Acute respiratory failure Current Visit: Yes Status: Acute Code(s): J96.00 - ACUTE RESPIRATORY FAILURE , UNSP W HYPOXIA OR HYPERCAPNIA SNOMED Code(s): 69157019 (3) CHF (congestive heart failure) Current Visit: Yes Status: Acute Code(s): I50.9 - HEART FAILURE, UNSPECIFIED SNOMED Code(s): 24693663 (4) Diabetes mellitus, type 2 Current Visit: No Status: Acute Code(s): E11.9 - TYPE 2 DIABETES MELLITUS WITHOUT COMPLICATIONS SNOMED Code(s): 33532046 (5) Sepsis Current Visit: Yes Status: Acute Code(s): A41.9 - SEPSIS, UNSPECIFIED ORGANISM SNOMED Code(s): 44844567 (6) CAD (coronary artery disease) Current Visit: Yes Status: Acute Code(s): I25.10 - ATHSCL HEART DISEASE OF [place] CORONARY ARTERY W/O ANG PCTRS SNOMED Code(s): 78934916 (7) Chronic atrial fibrillation Current Visit: Yes Status: Acute Code(s): I48.2 - CHRONIC ATRIAL FIBRILLATION SNOMED Code(s): 355769457 Plan: This patient is still intubated and sedated. Patient may be constricted for comfort care. Continue current medical therapy and will follow him as needed
--- NOTE | 2017-04-19 12:10 | P.PN ---
Subjective Progress Note Date: 04/19/17 Patient seen and examined at the bedside on rounds with Dr. Auguste. Patient remains intubated in the intensive care unit. Patients levophed has been weaned off. He remains on propofol for sedation. Weaning trial yesterday was unsuccessful due to tachypnea. Chest x-ray this morning: Correlate for possible ARDS, pneumonia, pulmonary edema. patchy bibasilar airspace disease. He remains on Lasix 40 mg IV every 12 hours. Sputum cultures positive for staph aureus. Blood cultures are negative at 48 hour alem. Urine culture is negative. White count this morning is 11.0. He is currently on meropenem and vancomycin. Objective - Vital Signs Vital signs: Vital Signs Temp 98.4 F 04/19/17 04:00 Pulse 49 L 04/19/17 07:42 Resp 31 H 04/19/17 07:00 BP 113/45 04/19/17 07:00 Pulse Ox 96 04/19/17 07:00 Intake & Output 04/18/17 04/19/17 04/19/17 18:59 06:59 18:59 Intake Total 1536 1465.705 196 Output Total 1155 1061 77 Balance 381 404.705 119 Weight 104.6 kg 104.1 kg Intake: IV 276 276 46 0.9 240 240 40 0.9 A-Line and CVP 36 36 6 Intake, IV Titration 300 299.705 Amount Norepinephrin 16 mg-0.9% 45.625 Ns Pmx 16 mg In 250 ml @ Titrate IV .Q0M [facility] Rx#: [id number] Propofol 1,000 mg In 300 254.08 Empty Bag 1 bag @ Titrate IV .Q0M [facility] Rx#: [id number] Tube Feeding 900 800 150 Other 60 90 Output: Urine 1155 1060 77 Stool 1 Other: Voiding Method Indwelling Catheter Indwelling Catheter Indwelling Catheter ABP, PAP, CO, CI - Last Documented Arterial Blood Pressure 85/79 - Exam GENERAL: This is a 86-year-old male who remains intubated and sedated on mechanical ventilation in the intensive care unit. HEENT: ET tube noted. Head is atraumatic, normocephalic. Pupils are equal, round, and reactive to light. Sclerae anicteric. Conjunctivae are clear. Mucus membranes of the mouth are moist. Neck is supple. RESPIRATORY: ET tube in place. Lungs with rhonchi bilaterally. Remains on mechanical ventilation with FiO2 of 40%. Oxygen saturations greater than 92%. CARDIOVASCULAR: Regular rate and rhythm. S1 and S2 noted. No systolic or diastolic murmur auscultated. No JVD noted. No S3 or S4 noted. GASTROINTESTINAL: No distention noted. Abdomen soft and round. Normal active bowel sounds auscultated x 4 quadrants. No pain or tenderness noted upon palpation. INTEGUMENTARY: No cyanosis. No jaundice. No rashes noted. No cellulitis noted. EXTREMITIES: 2+ peripheral pulses. 2+ edema of bilateral upper extremities. Trace bilateral lower extremity edema. No calf tenderness noted. NEUROLOGIC: Unable to assess secondary to mechanical ventilation and sedation PSYCHIATRIC: Unable to assess secondary to mechanical ventilation and sedation - Labs CBC & Chem 7: 04/19/17 04:30 04/19/17 04:30 Labs: Abnormal Lab Results - Last 24 Hours (Table) 04/18/17 04/18/17 04/19/17 Range/Units 11:37 17:16 00:58 WBC (3.8-10.6) k/uL Hgb (13.0-17.5) gm/dL Hct (39.0-53.0) % MCHC (31.0-37.0) g/dL Neutrophils # (1.3-7.7) k/uL ABG O2 Saturation (94-97) % Chloride (98-107) mmol/L BUN (9-20) mg/dL Glucose (74-99) mg/dL POC Glucose (mg/dL) 192 H 162 H 167 H (75-99) mg/dL Calcium (8.4-10.2) mg/dL 04/19/17 04/19/17 04/19/17 Range/Units 04:27 04:30 04:30 WBC 11.0 H (3.8-10.6) k/uL Hgb 11.5 L (13.0-17.5) gm/dL Hct 38.9 L (39.0-53.0) % MCHC 29.5 L (31.0-37.0) g/dL Neutrophils # 8.4 H (1.3-7.7) k/uL ABG O2 Saturation 97.3 H (94-97) % Chloride 110 H (98-107) mmol/L BUN 68 H (9-20) mg/dL Glucose 155 H (74-99) mg/dL POC Glucose (mg/dL) (75-99) mg/dL Calcium 7.9 L (8.4-10.2) mg/dL 04/19/17 Range/Units 06:53 WBC (3.8-10.6) k/uL Hgb (13.0-17.5) gm/dL Hct (39.0-53.0) % MCHC (31.0-37.0) g/dL Neutrophils # (1.3-7.7) k/uL ABG O2 Saturation (94-97) % Chloride (98-107) mmol/L BUN (9-20) mg/dL Glucose (74-99) mg/dL POC Glucose (mg/dL) 153 H (75-99) mg/dL Calcium (8.4-10.2) mg/dL Microbiology - Last 24 Hours (Table) 04/16/17 12:52 Blood Culture - Preliminary Blood No Growth after 48 hours 04/16/17 14:15 Gram Stain - Preliminary Sputum Sputum Culture - Preliminary Presumptive Staph aureus Assessment and Plan Plan: ASSESSMENT: Acute hypoxic respiratory failure requiring mechanical ventilation secondary to exacerbation of congestive heart failure Acute exacerbation of systolic congestive heart failure, EF 45% Right midlung pneumonia, sputum culture positive for staph aureus Sepsis with leukocytosis and hypotension, suspect secondary to pneumonia, culture positive for staph aureus Mild troponin leak, likely related to oxygen supply and demand mismatch Coronary artery disease with previous CABG in 2006 History of atrial fibrillation with permanent pacemaker insertion in 2013 Diabetes mellitus, type II, hemoglobin A1c 15.6% Essential hypertension Hyperlipidemia Obesity: BMI 32.0 PLAN: Continue ICU management 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 Signing provider agrees with the documented findings, assessment, and plan of care.
[2017-04-19 12:11] LABS: Glucose,Whole Blood 164 mg/dL (75-99)
[2017-04-19] MEDS: SODIUM CHLORIDE 0.9% 1,000 ML IV SCH (12:11)
[2017-04-19 17:56] LABS: Glucose,Whole Blood 158 mg/dL (75-99)
[2017-04-19 23:29] LABS: Glucose,Whole Blood 138 mg/dL (75-99)
[2017-04-20 00:46] LABS: Glucose,Whole Blood 155 mg/dL (75-99)
[2017-04-20] MEDS: IPRATROPIUM-ALBUTEROL 3 ML NEB INHALATION SCH ×6 (04:09→23:31)
[2017-04-20 04:46] LABS: Anion Gap 8 mmol/L; Carbon Dioxide 24 mmol/L (22-30); Chloride 111 mmol/L (98-107); Glucose 168 mg/dL (74-99); Magnesium 2.2 mg/dL (1.6-2.3); Phosphorus 4.4 mg/dL (2.5-4.5); Potassium 4.5 mmol/L (3.5-5.1); Sodium 143 mmol/L (137-145)
[2017-04-20 04:57] LABS: Basophils % (A) 0 %; Eosinophils # (A) 0.5 k/uL (0-0.7); Eosinophils % (A) 4 %; HCT 38.3 % (39.0-53.0); HGB 11.6 gm/dL (13.0-17.5); Hypochromasia Moderate; Lymphocytes # (A) 1.3 k/uL (1.0-4.8); Lymphocytes % (A) 11 %; MCH 26.8 pg (25.0-35.0); MCHC 30.2 g/dL (31.0-37.0); MCV 88.8 fL (80.0-100.0); Mean Platelet Volume 7.5; Monocytes # (A) 0.7 k/uL (0-1.0); Monocytes % (A) 6 %; Neutrophils # (A) 9.1 k/uL (1.3-7.7); Neutrophils % (A) 77 %; Platelet Count 214 k/uL (150-450); RBC 4.31 m/uL (4.30-5.90); RDW 13.6 % (11.5-15.5); WBC 11.9 k/uL (3.8-10.6)
[2017-04-20 05:02] LABS: ABG PH 7.41 (7.35-7.45)
[2017-04-20 05:03] LABS: ABG Base Excess -0.4 mmol/L; ABG HCO3 24 mmol/L (21-25); ABG PCO2 38 mmHg (35-45); ABG PO2 94 mmHg (83-108); ABG TCO2 25 mmol/L (19-24)
[2017-04-20 05:08] LABS: Blood Urea Nitrogen 80 mg/dL (9-20)
[2017-04-20] MEDS: INSULIN ASPART 100 UNIT/ML 1 ML 10 ML VIAL SQ SCH ×3 (06:08→18:10)
[2017-04-20] MEDS: PROPOFOL 1,000 MG in EMPTY BAG 1 BAG IV SCH ×3 (06:08→18:10)
[2017-04-20] MEDS: APIXABAN 2.5 MG TABLET PO SCH ×2 (08:01→20:18)
[2017-04-20] MEDS: CHLORHEXIDINE GLUCONATE 15 ML CUP MUCOUS MEM SCH ×2 (08:02→20:19)
[2017-04-20] MEDS: ASPIRIN 81 MG PO SCH (08:02)
[2017-04-20] MEDS: FUROSEMIDE 10 MG/ML 4 ML VIAL IV SCH (08:02)
[2017-04-20] MEDS: metFORMIN 500 MG TAB PO SCH ×2 (08:02→20:19)
[2017-04-20] MEDS: LISINOPRIL 2.5 MG TAB PO SCH (08:02)
[2017-04-20] MEDS: ATORVASTATIN 20 MG TAB PO SCH (08:02)
[2017-04-20] MEDS: PANTOPRAZOLE 40 MG/10 ML VIAL IVP SCH (08:03)
[2017-04-20] MEDS: MEROPENEM 1 GM in SODIUM CHLORIDE 0.9% 100 ML IVPB SCH ×2 (08:05→20:24)
[2017-04-20] MEDS: VANCOMYCIN 1,750 MG in SODIUM CHLORIDE 0.9% 250 ML IVPB SCH (08:05)
[2017-04-20] MEDS: METOPROLOL TARTRATE 25 MG TAB PO SCH ×2 (08:45→20:20)
--- NOTE | 2017-04-20 09:18 | XR ---
EXAMINATION TYPE: XR chest 1V portable DATE OF EXAM: 04/20/2017 COMPARISON: Prior chest x-ray 04/19/2017 HISTORY: Intubated TECHNIQUE: Single frontal view of the chest is obtained. FINDINGS: Endotracheal tube, NG tube, left jugular central venous catheter remain in place. Pleural parenchymal changes are similar to prior exam. No evident pneumothorax or sizable effusion. The heart remains stable in size. Patient is post median sternotomy. Patient is rotated. IMPRESSION: Correlate for pneumonia, ARDS, pulmonary edema. Additional follow-up recommended.
--- NOTE | 2017-04-20 10:07 | P.PN ---
Subjective Progress Note Date: 04/20/17 Principal diagnosis: Acute exacerbation of chronic congestive heart failure with acute hypoxic respiratory failure requiring intubation mechanical ventilatory support. This is a very pleasant 86-year-old gentleman who follows with Dr. Auguste as his primary care physician. He has a history of coronary artery disease with previous coronary artery bypass grafting 4 in 2006, permanent pacemaker implantation, diabetes mellitus, obstructive sleep apnea not currently on CPAP, hypertension, hyperlipidemia. He presented here to the emergency room early this morning with complaints of increasing shortness of breath, cough and congestion. He also had increased lower extremity edema. Positive orthopnea. Chest x-ray reveals diffuse airspace disease with bilateral infusion and acute pulmonary edema. He is currently on BiPAP 10/5 and 60% FiO2. He has been initiated on Lasix 40 mg IV push every 8 hours. White count 26.3. Hemoglobin 14.2. INR 1.4. Creatinine 1.14. ProBNP 7020. Troponin 0.046. Influenza screen is negative. The patient is seen again today 04/20/2017 in follow-up in the intensive care unit. He remains intubated and on the mechanical ventilator. Current settings assist control of 28, tidal volume 450, FiO2 30% and a PEEP of 5. Morning blood gases reveal a P O2 of 94, pCO2 38, pH 7.41. The patient was given a daily interruption of sedation and unfortunately continues to have episodes of tachycardia, tachypnea and restlessness. He is alert while off sedation however and does follow commands. He is currently back on propofol at 30 mcg/kg /m. 0.9 normal saline at KVO, being nourished with [place] HP 50 mL per hour which is his goal. His microbiology of the sputum is positive for Staphylococcus aureus pneumonia. Blood cultures revealing no growth. White count 11.9. Hemoglobin 11.6. BUN 80, creatinine 1.20. He is currently hypertensive. Afebrile. Tachypneic. Chest x-ray continues to show evidence of multilobar pneumonia suspect adult respiratory distress syndrome and underlying pulmonary edema. Objective - Vital Signs Vital signs: Vital Signs Temp 96.9 F L 04/20/17 08:00 Pulse 50 L 04/20/17 09:30 Resp 34 H 04/20/17 09:30 BP 154/55 04/20/17 09:30 Pulse Ox 96 04/20/17 09:30 Intake & Output 04/19/17 04/20/17 04/20/17 18:59 06:59 18:59 Intake Total 1316.0 1316 719 Output Total 650 1065 820 Balance 666.0 251 -101 Weight 103.8 kg Intake: IV 276 276 69 0.9 240 240 60 0.9 A-Line and CVP 36 36 9 Intake, IV Titration 100.0 100 450 Amount Meropenem 1 gm In Sodium 200 Chloride 0.9% 100 ml @ 200 mls/hr IVPB Q12HR [facility] Rx#:[id number] Norepinephrin 16 mg-0.9% 0 Ns Pmx 16 mg In 250 ml @ Titrate IV .Q0M [facility] Rx#: [id number] Propofol 1,000 mg In 100.0 100 Empty Bag 1 bag @ Titrate IV .Q0M [facility] Rx#: [id number] Vancomycin 1,750 mg In 250 Sodium Chloride 0.9% 250 ml @ 125 mls/hr IVPB Q24HR [facility] Rx#:[id number] Tube Feeding 850 850 200 Other 90 90 Output: Urine 649 1065 820 Stool 1 Other: Voiding Method Indwelling Catheter Indwelling Catheter Indwelling Catheter ABP, PAP, CO, CI - Last Documented Arterial Blood Pressure 85/79 - Exam GENERAL EXAM: Sedated, intubated. comfortable in no apparent distress. HEAD: Normocephalic. EYES: Sluggish reaction of pupils, equal size. NOSE: Clear with pink turbinates. THROAT: Oral endotracheal and nasogastric tubes remain in place. NECK: No masses, no JVD. CHEST: No chest wall deformity. LUNGS: Equal air entry with crackles in the bilateral posterior bases. CVS: S1 and S2 normal with no audible murmur, irregular rhythm. ABDOMEN: No hepatosplenomegaly, normal bowel sounds, no guarding or rigidity. SPINE: No scoliosis or deformity SKIN: No rashes CENTRAL NERVOUS SYSTEM: Sedated. EXTREMITIES: There 1-2+ peripheral edema. No clubbing, no cyanosis. Peripheral pulses are intact. - Labs CBC & Chem 7: 04/20/17 03:58 04/20/17 03:58 Labs: Abnormal Lab Results - Last 24 Hours (Table) 04/19/17 04/19/17 04/19/17 Range/Units 12:09 17:55 23:27 WBC (3.8-10.6) k/uL Hgb (13.0-17.5) gm/dL Hct (39.0-53.0) % MCHC (31.0-37.0) g/dL Neutrophils # (1.3-7.7) k/uL ABG Total CO2 (19-24) mmol/L ABG O2 Saturation (94-97) % Chloride (98-107) mmol/L BUN (9-20) mg/dL Glucose (74-99) mg/dL POC Glucose (mg/dL) 164 H 158 H 138 H (75-99) mg/dL Calcium (8.4-10.2) mg/dL 04/20/17 04/20/17 04/20/17 Range/Units 00:44 03:58 03:58 WBC 11.9 H (3.8-10.6) k/uL Hgb 11.6 L (13.0-17.5) gm/dL Hct 38.3 L (39.0-53.0) % MCHC 30.2 L (31.0-37.0) g/dL Neutrophils # 9.1 H (1.3-7.7) k/uL ABG Total CO2 (19-24) mmol/L ABG O2 Saturation (94-97) % Chloride 111 H (98-107) mmol/L BUN 80 H* (9-20) mg/dL Glucose 168 H (74-99) mg/dL POC Glucose (mg/dL) 155 H (75-99) mg/dL Calcium 8.0 L (8.4-10.2) mg/dL 04/20/17 Range/Units 04:47 WBC (3.8-10.6) k/uL Hgb (13.0-17.5) gm/dL Hct (39.0-53.0) % MCHC (31.0-37.0) g/dL Neutrophils # (1.3-7.7) k/uL ABG Total CO2 25 H (19-24) mmol/L ABG O2 Saturation 98.0 H (94-97) % Chloride (98-107) mmol/L BUN (9-20) mg/dL Glucose (74-99) mg/dL POC Glucose (mg/dL) (75-99) mg/dL Calcium (8.4-10.2) mg/dL Microbiology - Last 24 Hours (Table) 04/16/17 12:52 Blood Culture - Preliminary Blood No Growth after 72 hours 04/16/17 14:15 Gram Stain - Final Sputum Sputum Culture - Final Staphylococcus aureus Assessment and Plan Assessment: Impression: #1 Acute hypoxic respiratory failure secondary to an acute exacerbation of systolic congestive heart failure as well as an acute Staphylococcus aureus pneumonia. Subsequent deterioration requiring intubation and mechanical ventilatory support. Chest x-ray continues to show evidence of multilobar pneumonia, fluid volume overload. Remains on diuretics. Remains on vancomycin and meropenem. #2 Leukocytosis. Sputum now positive for Staphylococcus aureus. #3 Mild troponin leak. Suspect demand ischemia with myocardial infarction type 2 secondary to acute hypoxic respiratory failure. #4 Coronary artery disease with previous coronary artery bypass grafting. #5 Mildly impaired left ventricular systolic function with ejection fraction 45- 50%. #6 Atrial fibrillation, status post permanent pacemaker implantation in 2013. Anticoagulated with Eliquis. #7 Diabetes mellitus, type II. #8 Hypertension. #9 Hyperlipidemia. #10 Coronary artery disease with previous coronary artery bypass grafting 4 in 2006. Cardiac catheterization in 2008 treated medically. #11 Acute renal failure suspect secondary to diuretics. We'll hold diuretics for now. Plan: The patient was seen and evaluated by Dr. Grossman. His chest x-ray and labs were reviewed. Blood gases reviewed. The patient had failed daily interruption of sedation and weaning trial again today. If no significant improvement he may need tracheostomy and PEG tube placements. We'll have discussion with the family when they arrive today. In the interim we'll continue with his current antibiotics in the form of vancomycin and meropenem. We'll hold the IV diuretics for now based on his elevated BUN and creatinine. Continue tube feedings. We'll repeat his chest x-ray and blood gases in the a.m. We'll continue to follow and make further recommendations based on his clinical status. Critical care time 36 minutes. I, the cosigning physician, performed a history & physical examination of the patient. Lungs sounds have crackles in the bilateral posterior bases. Maintaining good O2 saturations in the 90s on 40% FiO2 on current ventilator settings.. I discussed the assessment and plan of care with my nurse practitioner, Pauline Jc. I attest to the above note as dictated by her.
--- NOTE | 2017-04-20 10:22 | P.PN ---
Subjective Progress Note Date: 04/20/17 This 86-year-old gentleman was admitted with increasing shortness of breath and evidence of possible CHF and pneumonia combination. Patient is off Levophed now. His blood pressures running about 120 systolic. His diuresing fairly well. Chest x-ray shows some persistent infiltrates on the right side which may represent pneumonia. Patient is being started on antibiotics. I will start him on small dose of beta blockers and also an DEVENDRA inhibitor. Will continue with IV diuretics. Progress note for 04/18/2017: This patient is admitted with restricted failure related to CHF and pneumonia. He she is diuresing well. Chest x-ray shows mild improvement, but there is bilateral infiltrates. Patient is also on antibiotics. Attempts at weaning were not successful. We'll continue current medical therapy. Prognosis is guarded. Progress note for 04/19/2017. Patient is still intubated . Unable to extubate. His sputum cultures are growing staph. A chest x-ray still shows bilateral infiltrates. Apparently, the family doesn't want patient to have tracheostomy. There is a consideration that patient may be made comfort care. Prognosis is poor. Continue current medical therapy. Progress note for 04/20/2017: This patient is still intubated. His chest x-ray showed slight improvement. Attempts at weaning again were unsuccessful. Patient is a [place] fibrillation with underlying pacemaker rhythm. His urine output is good. His sputum is growing staph. BUN is high. Lasix diuretics are being held. Lungs appeared to show diminished breath sounds with rhonchi. Heart is irregular Objective - Vital Signs Vital signs: Vital Signs Temp 96.9 F L 04/20/17 08:00 Pulse 50 L 04/20/17 09:30 Resp 34 H 04/20/17 09:30 BP 154/55 04/20/17 09:30 Pulse Ox 96 04/20/17 09:30 Intake & Output 04/19/17 04/20/17 04/20/17 18:59 06:59 18:59 Intake Total 1316.0 1316 719 Output Total 650 1065 820 Balance 666.0 251 -101 Weight 103.8 kg Intake: IV 276 276 69 0.9 240 240 60 0.9 A-Line and CVP 36 36 9 Intake, IV Titration 100.0 100 450 Amount Meropenem 1 gm In Sodium 200 Chloride 0.9% 100 ml @ 200 mls/hr IVPB Q12HR [facility] Rx#:[id number] Norepinephrin 16 mg-0.9% 0 Ns Pmx 16 mg In 250 ml @ Titrate IV .Q0M [facility] Rx#: [id number] Propofol 1,000 mg In 100.0 100 Empty Bag 1 bag @ Titrate IV .Q0M [facility] Rx#: [id number] Vancomycin 1,750 mg In 250 Sodium Chloride 0.9% 250 ml @ 125 mls/hr IVPB Q24HR [facility] Rx#:[id number] Tube Feeding 850 850 200 Other 90 90 Output: Urine 649 1065 820 Stool 1 Other: Voiding Method Indwelling Catheter Indwelling Catheter Indwelling Catheter ABP, PAP, CO, CI - Last Documented Arterial Blood Pressure 85/79 - Exam GENERAL EXAM: Patient is intubated and sedated HEENT: Normocephalic. Normal reaction of pupils, equal size, normal range of extraocular motion. No erythema or exudates in the throat. NECK: No masses, no nuchal rigidity. CHEST: No chest wall deformity. LUNGS: Diminished breath sounds, more so in right base HEART: Distant heart sounds ABDOMEN: No hepatosplenomegaly, normal bowel sounds, no guarding or rigidity. SKIN: No rashes CENTRAL NERVOUS SYSTEM: Deferred EXTREMITIES: No cyanosis or clubbing] - Labs CBC & Chem 7: 04/20/17 03:58 04/20/17 03:58 Labs: Abnormal Lab Results - Last 24 Hours (Table) 04/19/17 04/19/17 04/19/17 Range/Units 12:09 17:55 23:27 WBC (3.8-10.6) k/uL Hgb (13.0-17.5) gm/dL Hct (39.0-53.0) % MCHC (31.0-37.0) g/dL Neutrophils # (1.3-7.7) k/uL ABG Total CO2 (19-24) mmol/L ABG O2 Saturation (94-97) % Chloride (98-107) mmol/L BUN (9-20) mg/dL Glucose (74-99) mg/dL POC Glucose (mg/dL) 164 H 158 H 138 H (75-99) mg/dL Calcium (8.4-10.2) mg/dL 04/20/17 04/20/17 04/20/17 Range/Units 00:44 03:58 03:58 WBC 11.9 H (3.8-10.6) k/uL Hgb 11.6 L (13.0-17.5) gm/dL Hct 38.3 L (39.0-53.0) % MCHC 30.2 L (31.0-37.0) g/dL Neutrophils # 9.1 H (1.3-7.7) k/uL ABG Total CO2 (19-24) mmol/L ABG O2 Saturation (94-97) % Chloride 111 H (98-107) mmol/L BUN 80 H* (9-20) mg/dL Glucose 168 H (74-99) mg/dL POC Glucose (mg/dL) 155 H (75-99) mg/dL Calcium 8.0 L (8.4-10.2) mg/dL 04/20/17 Range/Units 04:47 WBC (3.8-10.6) k/uL Hgb (13.0-17.5) gm/dL Hct (39.0-53.0) % MCHC (31.0-37.0) g/dL Neutrophils # (1.3-7.7) k/uL ABG Total CO2 25 H (19-24) mmol/L ABG O2 Saturation 98.0 H (94-97) % Chloride (98-107) mmol/L BUN (9-20) mg/dL Glucose (74-99) mg/dL POC Glucose (mg/dL) (75-99) mg/dL Calcium (8.4-10.2) mg/dL Microbiology - Last 24 Hours (Table) 04/16/17 12:52 Blood Culture - Preliminary Blood No Growth after 72 hours 04/16/17 14:15 Gram Stain - Final Sputum Sputum Culture - Final Staphylococcus aureus Assessment and Plan (1) Pneumonia Current Visit: Yes Status: Acute Code(s): J18.9 - PNEUMONIA, UNSPECIFIED ORGANISM SNOMED Code(s): 358159546 (2) Acute respiratory failure Current Visit: Yes Status: Acute Code(s): J96.00 - ACUTE RESPIRATORY FAILURE , UNSP W HYPOXIA OR HYPERCAPNIA SNOMED Code(s): 94372769 (3) CHF (congestive heart failure) Current Visit: Yes Status: Acute Code(s): I50.9 - HEART FAILURE, UNSPECIFIED SNOMED Code(s): 33630127 (4) Diabetes mellitus, type 2 Current Visit: No Status: Acute Code(s): E11.9 - TYPE 2 DIABETES MELLITUS WITHOUT COMPLICATIONS SNOMED Code(s): 44096715 (5) Sepsis Current Visit: Yes Status: Acute Code(s): A41.9 - SEPSIS, UNSPECIFIED ORGANISM SNOMED Code(s): 34102618 (6) CAD (coronary artery disease) Current Visit: Yes Status: Acute Code(s): I25.10 - ATHSCL HEART DISEASE OF [place] CORONARY ARTERY W/O ANG PCTRS SNOMED Code(s): 31468985 (7) Chronic atrial fibrillation Current Visit: Yes Status: Acute Code(s): I48.2 - CHRONIC ATRIAL FIBRILLATION SNOMED Code(s): 882813448 Plan: This patient is still intubated. Attempts at obtaining were unsuccessful. Patient has underlying atrial fibrillation with backup pacemaker. 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 Anticoagulation therapy to be held for 48 hours prior to the procedure. Continue rest of the medications. Prognosis is guarded
[2017-04-20] MEDS: HYDROmorphone 0.5 MG/0.5 ML SYRINGE IVP PRN (10:30)
--- NOTE | 2017-04-20 12:13 | P.PN ---
Subjective Progress Note Date: 04/20/17 04/19/2017 Patient seen and examined at the bedside on rounds with Dr. Auguste. Patient remains intubated in the intensive care unit. Patients levophed has been weaned off. He remains on propofol for sedation. Weaning trial yesterday was unsuccessful due to tachypnea. Chest x-ray this morning: Correlate for possible ARDS, pneumonia, pulmonary edema. patchy bibasilar airspace disease. He remains on Lasix 40 mg IV every 12 hours. Sputum cultures positive for staph aureus. Blood cultures are negative at 48 hour alem. Urine culture is negative. White count this morning is 11.0. He is currently on meropenem and vancomycin. 04/20/2017 Patient remains intubated in the intensive care unit by Dr. Auguste. Patient has failed daily weaning attempts secondary to tachycardia and tachypnea. The patient underwent CPAP trial this morning which again was unsuccessful. The patient's propofol was resumed. Sputum cultures positive for Staphylococcus aureus. Patient remains on meropenem and vancomycin. Patient was receiving IV Lasix every 12 hours due to congestive heart failure. This has been stopped today secondary to elevated BUN. BUN 80. Creatinine 1.20. ABG: PH 7.41, CO2 38, pO2 94, bicarb 24. White count is 11.9. He remains bradycardic with a rate in the 50s. Blood pressure is elevated at 154/55. RR 30s. Afebrile. Remains on tube feedings at goal and tolerating well. Chest x-ray 04/20/2017: Correlate for pneumonia, ARDs, pulmonary edema. Objective - Vital Signs Vital signs: Vital Signs Temp 96.9 F L 04/20/17 08:00 Pulse 50 L 04/20/17 09:30 Resp 34 H 04/20/17 09:30 BP 154/55 04/20/17 09:30 Pulse Ox 96 04/20/17 09:30 Intake & Output 04/19/17 04/20/17 04/20/17 18:59 06:59 18:59 Intake Total 1316.0 1316 719 Output Total 650 1065 820 Balance 666.0 251 -101 Weight 103.8 kg Intake: IV 276 276 69 0.9 240 240 60 0.9 A-Line and CVP 36 36 9 Intake, IV Titration 100.0 100 450 Amount Meropenem 1 gm In Sodium 200 Chloride 0.9% 100 ml @ 200 mls/hr IVPB Q12HR [facility] Rx#:[id number] Norepinephrin 16 mg-0.9% 0 Ns Pmx 16 mg In 250 ml @ Titrate IV .Q0M [facility] Rx#: [id number] Propofol 1,000 mg In 100.0 100 Empty Bag 1 bag @ Titrate IV .Q0M [facility] Rx#: [id number] Vancomycin 1,750 mg In 250 Sodium Chloride 0.9% 250 ml @ 125 mls/hr IVPB Q24HR [facility] Rx#:[id number] Tube Feeding 850 850 200 Other 90 90 Output: Urine 649 1065 820 Stool 1 Other: Voiding Method Indwelling Catheter Indwelling Catheter Indwelling Catheter ABP, PAP, CO, CI - Last Documented Arterial Blood Pressure 85/79 - Exam GENERAL: This is a 86-year-old male who remains intubated and sedated on mechanical ventilation in the intensive care unit. HEENT: ET tube noted. Head is atraumatic, normocephalic. Pupils are equal, round, and reactive to light. Sclerae anicteric. Conjunctivae are clear. Mucus membranes of the mouth are moist. Neck is supple. RESPIRATORY: ET tube in place. Lungs with rhonchi bilaterally anteriorly. Rales to bilateral bases. Remains on mechanical ventilation with FiO2 of 40%. Oxygen saturations greater than 92%. CARDIOVASCULAR: Bradycardic. S1 and S2 noted. No systolic or diastolic murmur auscultated. No JVD noted. No S3 or S4 noted. GASTROINTESTINAL: No distention noted. Abdomen soft and round. Normal active bowel sounds auscultated x 4 quadrants. No pain or tenderness noted upon palpation. INTEGUMENTARY: No cyanosis. No jaundice. No rashes noted. No cellulitis noted. EXTREMITIES: 2+ peripheral pulses. trace edema of bilateral upper extremities. 2+ bilateral lower extremity edema. NEUROLOGIC: Unable to assess secondary to mechanical ventilation and sedation PSYCHIATRIC: Unable to assess secondary to mechanical ventilation and sedation - Labs CBC & Chem 7: 04/20/17 03:58 04/20/17 03:58 Labs: Abnormal Lab Results - Last 24 Hours (Table) 04/19/17 04/19/17 04/19/17 Range/Units 12:09 17:55 23:27 WBC (3.8-10.6) k/uL Hgb (13.0-17.5) gm/dL Hct (39.0-53.0) % MCHC (31.0-37.0) g/dL Neutrophils # (1.3-7.7) k/uL ABG Total CO2 (19-24) mmol/L ABG O2 Saturation (94-97) % Chloride (98-107) mmol/L BUN (9-20) mg/dL Glucose (74-99) mg/dL POC Glucose (mg/dL) 164 H 158 H 138 H (75-99) mg/dL Calcium (8.4-10.2) mg/dL 04/20/17 04/20/17 04/20/17 Range/Units 00:44 03:58 03:58 WBC 11.9 H (3.8-10.6) k/uL Hgb 11.6 L (13.0-17.5) gm/dL Hct 38.3 L (39.0-53.0) % MCHC 30.2 L (31.0-37.0) g/dL Neutrophils # 9.1 H (1.3-7.7) k/uL ABG Total CO2 (19-24) mmol/L ABG O2 Saturation (94-97) % Chloride 111 H (98-107) mmol/L BUN 80 H* (9-20) mg/dL Glucose 168 H (74-99) mg/dL POC Glucose (mg/dL) 155 H (75-99) mg/dL Calcium 8.0 L (8.4-10.2) mg/dL 04/20/17 Range/Units 04:47 WBC (3.8-10.6) k/uL Hgb (13.0-17.5) gm/dL Hct (39.0-53.0) % MCHC (31.0-37.0) g/dL Neutrophils # (1.3-7.7) k/uL ABG Total CO2 25 H (19-24) mmol/L ABG O2 Saturation 98.0 H (94-97) % Chloride (98-107) mmol/L BUN (9-20) mg/dL Glucose (74-99) mg/dL POC Glucose (mg/dL) (75-99) mg/dL Calcium (8.4-10.2) mg/dL Microbiology - Last 24 Hours (Table) 04/16/17 12:52 Blood Culture - Preliminary Blood No Growth after 72 hours 04/16/17 14:15 Gram Stain - Final Sputum Sputum Culture - Final Staphylococcus aureus Assessment and Plan Plan: ASSESSMENT: Acute hypoxic respiratory failure requiring mechanical ventilation secondary to exacerbation of congestive heart failure and staph aureus pneumonia Acute exacerbation of systolic congestive heart failure, EF 45% Right midlung pneumonia, sputum culture positive for staph aureus Septic shock with leukocytosis and hypotension, requiring vasopressor support, suspect secondary to pneumonia, culture positive for staph aureus Mild troponin leak, likely due to demand ischemia with myocardial infarction type 2 secondary to acute hypoxic respiratory failure Acute kidney injury, likely secondary to IV diuretics Coronary artery disease with previous CABG X 4 in 2006 History of atrial fibrillation with permanent pacemaker insertion in 2013, and correction anticoagulation with Eliquis Diabetes mellitus, type II, hemoglobin A1c 15.6% Essential hypertension Hyperlipidemia Obesity: BMI 32.0 PLAN: 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 Signing provider agrees with the documented findings, assessment, and plan of care.
[2017-04-20] MEDS: SODIUM CHLORIDE 0.9% 1,000 ML IV SCH (13:17)
[2017-04-20 13:21] LABS: Glucose,Whole Blood 141 mg/dL (75-99)
[2017-04-20 17:17] LABS: Glucose,Whole Blood 143 mg/dL (75-99)
[2017-04-20 23:45] LABS: Glucose,Whole Blood 189 mg/dL (75-99)
[2017-04-21] MEDS: INSULIN ASPART 100 UNIT/ML 1 ML 10 ML VIAL SQ SCH ×5 (00:20→23:50)
[2017-04-21] MEDS: IPRATROPIUM-ALBUTEROL 3 ML NEB INHALATION SCH ×5 (03:05→19:38)
[2017-04-21 04:50] LABS: ABG Base Excess 1.3 mmol/L; ABG HCO3 26 mmol/L (21-25); ABG Oxygen Saturation 97.6 % (94-97); ABG PCO2 39 mmHg (35-45); ABG PH 7.43 (7.35-7.45); ABG PO2 84 mmHg (83-108); ABG TCO2 27 mmol/L (19-24)
[2017-04-21 05:02] LABS: Basophils # (A) 0.1 k/uL (0-0.2); Basophils % (A) 1 %; Eosinophils # (A) 0.5 k/uL (0-0.7); Eosinophils % (A) 4 %; HCT 37.8 % (39.0-53.0); HGB 11.5 gm/dL (13.0-17.5); Hypochromasia Slight; Lymphocytes # (A) 1.2 k/uL (1.0-4.8); Lymphocytes % (A) 11 %; MCH 26.8 pg (25.0-35.0); MCHC 30.4 g/dL (31.0-37.0); MCV 88.2 fL (80.0-100.0); Monocytes # (A) 0.8 k/uL (0-1.0); Monocytes % (A) 7 %; Neutrophils # (A) 8.5 k/uL (1.3-7.7); Neutrophils % (A) 76 %; Platelet Count 244 k/uL (150-450); RBC 4.28 m/uL (4.30-5.90); RDW 13.7 % (11.5-15.5); WBC 11.3 k/uL (3.8-10.6)
[2017-04-21 05:49] LABS: Glucose,Whole Blood 184 mg/dL (75-99)
[2017-04-21 05:52] LABS: Anion Gap 8 mmol/L; Carbon Dioxide 26 mmol/L (22-30); Chloride 112 mmol/L (98-107); Glucose 175 mg/dL (74-99); Magnesium 2.3 mg/dL (1.6-2.3); Phosphorus 3.6 mg/dL (2.5-4.5); Potassium 4.2 mmol/L (3.5-5.1); Sodium 146 mmol/L (137-145)
[2017-04-21 05:58] LABS: Blood Urea Nitrogen 85 mg/dL (9-20)
[2017-04-21] MEDS: PROPOFOL 1,000 MG in EMPTY BAG 1 BAG IV SCH ×3 (06:14→14:31)
[2017-04-21] MEDS: METOPROLOL TARTRATE 25 MG TAB PO SCH ×2 (08:27→20:02)
[2017-04-21] MEDS: CHLORHEXIDINE GLUCONATE 15 ML CUP MUCOUS MEM SCH ×2 (08:27→20:02)
[2017-04-21] MEDS: PANTOPRAZOLE 40 MG/10 ML VIAL IVP SCH (08:27)
[2017-04-21] MEDS: LISINOPRIL 2.5 MG TAB PO SCH (08:28)
[2017-04-21] MEDS: ATORVASTATIN 20 MG TAB PO SCH (08:28)
[2017-04-21] MEDS: metFORMIN 500 MG TAB PO SCH ×2 (08:28→20:02)
[2017-04-21] MEDS: MEROPENEM 1 GM in SODIUM CHLORIDE 0.9% 100 ML IVPB SCH ×3 (08:44→23:36)
[2017-04-21] MEDS: VANCOMYCIN 1,750 MG in SODIUM CHLORIDE 0.9% 250 ML IVPB SCH (08:44)
--- NOTE | 2017-04-21 09:11 | XR ---
EXAMINATION TYPE: XR chest 1V portable DATE OF EXAM: 04/21/2017 COMPARISON: 04/20/2017 HISTORY: Tube placement TECHNIQUE: Single frontal view of the chest is obtained. FINDINGS: Cardiomegaly and postoperative change with cardiac device. NG tube noted. Bilateral small effusion and consolidation. Diffuse interstitial pattern noted. Additional pacemaker leads are noted. No pneumothorax. IMPRESSION: 1. Mixed alveolar and interstitial process with bilateral effusions and infiltrate. Differential incl udes diffuse pneumonia, ARDS or CHF.
--- NOTE | 2017-04-21 09:51 | P.PN ---
Subjective Progress Note Date: 04/21/17 This 86-year-old gentleman was admitted with increasing shortness of breath and evidence of possible CHF and pneumonia combination. Patient is off Levophed now. His blood pressures running about 120 systolic. His diuresing fairly well. Chest x-ray shows some persistent infiltrates on the right side which may represent pneumonia. Patient is being started on antibiotics. I will start him on small dose of beta blockers and also an DEVENDRA inhibitor. Will continue with IV diuretics. Progress note for 04/18/2017: This patient is admitted with restricted failure related to CHF and pneumonia. He she is diuresing well. Chest x-ray shows mild improvement, but there is bilateral infiltrates. Patient is also on antibiotics. Attempts at weaning were not successful. We'll continue current medical therapy. Prognosis is guarded. Progress note for 04/19/2017. Patient is still intubated . Unable to extubate. His sputum cultures are growing staph. A chest x-ray still shows bilateral infiltrates. Apparently, the family doesn't want patient to have tracheostomy. There is a consideration that patient may be made comfort care. Prognosis is poor. Continue current medical therapy. Progress note for 04/20/2017: This patient is still intubated. His chest x-ray showed slight improvement. Attempts at weaning again were unsuccessful. Patient is a [place] fibrillation with underlying pacemaker rhythm. His urine output is good. His sputum is growing staph. BUN is high. Lasix diuretics are being held. Lungs appeared to show diminished breath sounds with rhonchi. Heart is irregular. Progress note for 04/21/2017: The patient is still intubated and sedated. There were plans for possible tracheostomy and Tuesday. It appears that the family wants to wait for a few more days. Attempts are being made to see if he can be weaned off the respirator. If tracheostomy not planned for Tuesday, patient will go back on his anticoagulant agent. His rhythm is atrial fibrillation with underlying pacemaker rhythm. Chest x-ray continues to bilateral infiltrates. Patient is congested been antibiotic therapy along with diuretics. It. Prognosis is poor Objective - Vital Signs Vital signs: Vital Signs Temp 98.2 F 04/21/17 08:00 Pulse 53 L 04/21/17 09:33 Resp 42 H 04/21/17 09:33 BP 184/87 02/15/18 09:33 Pulse Ox 96 04/21/17 09:33 Intake & Output 04/20/17 04/21/17 04/21/17 18:59 06:59 18:59 Intake Total 1617.77 1216 540.115 Output Total 2195 914 150 Balance -577.23 302 390.115 Weight 103.8 kg 101.4 kg Intake: IV 253 276 46 0.9 220 240 40 0.9 A-Line and CVP 33 36 6 Intake, IV Titration 614.77 100 394.115 Amount Meropenem 1 gm In Sodium 200 100 Chloride 0.9% 100 ml @ 200 mls/hr IVPB Q12HR [facility] Rx#:[id number] Propofol 1,000 mg In 84.77 100 44.115 Empty Bag 1 bag @ Titrate IV .Q0M [facility] Rx#: [id number] Sodium Chloride 0.9% 1, 80 000 ml @ 20 mls/hr IV . Q24H [facility] Rx#:[id number] Vancomycin 1,750 mg In 250 250 Sodium Chloride 0.9% 250 ml @ 125 mls/hr IVPB Q24HR [facility] Rx#:[id number] Tube Feeding 750 750 100 Other 90 Output: Urine 2195 910 150 Stool 4 Other: Voiding Method Indwelling Catheter Indwelling Catheter Indwelling Catheter ABP, PAP, CO, CI - Last Documented Arterial Blood Pressure 85/79 - Exam GENERAL EXAM: Patient is intubated and sedated HEENT: Normocephalic. Normal reaction of pupils, equal size, normal range of extraocular motion. No erythema or exudates in the throat. NECK: No masses, no nuchal rigidity. CHEST: No chest wall deformity. LUNGS: Diminished breath sounds, more so in right base HEART: Distant heart sounds ABDOMEN: No hepatosplenomegaly, normal bowel sounds, no guarding or rigidity. SKIN: No rashes CENTRAL NERVOUS SYSTEM: Deferred EXTREMITIES: No cyanosis or clubbing] - Labs CBC & Chem 7: 04/21/17 04:50 04/21/17 04:50 Labs: Abnormal Lab Results - Last 24 Hours (Table) 04/20/17 04/20/17 04/20/17 Range/Units 13:19 17:15 23:43 WBC (3.8-10.6) k/uL RBC (4.30-5.90) m/uL Hgb (13.0-17.5) gm/dL Hct (39.0-53.0) % MCHC (31.0-37.0) g/dL Neutrophils # (1.3-7.7) k/uL ABG HCO3 (21-25) mmol/L ABG Total CO2 (19-24) mmol/L ABG O2 Saturation (94-97) % Sodium (137-145) mmol/L Chloride (98-107) mmol/L BUN (9-20) mg/dL Glucose (74-99) mg/dL POC Glucose (mg/dL) 141 H 143 H 189 H (75-99) mg/dL Calcium (8.4-10.2) mg/dL 04/21/17 04/21/17 04/21/17 Range/Units 04:47 04:50 04:50 WBC 11.3 H (3.8-10.6) k/uL RBC 4.28 L (4.30-5.90) m/uL Hgb 11.5 L (13.0-17.5) gm/dL Hct 37.8 L (39.0-53.0) % MCHC 30.4 L (31.0-37.0) g/dL Neutrophils # 8.5 H (1.3-7.7) k/uL ABG HCO3 26 H (21-25) mmol/L ABG Total CO2 27 H (19-24) mmol/L ABG O2 Saturation 97.6 H (94-97) % Sodium 146 H (137-145) mmol/L Chloride 112 H (98-107) mmol/L BUN 85 H* (9-20) mg/dL Glucose 175 H (74-99) mg/dL POC Glucose (mg/dL) (75-99) mg/dL Calcium 8.0 L (8.4-10.2) mg/dL 04/21/17 Range/Units 05:48 WBC (3.8-10.6) k/uL RBC (4.30-5.90) m/uL Hgb (13.0-17.5) gm/dL Hct (39.0-53.0) % MCHC (31.0-37.0) g/dL Neutrophils # (1.3-7.7) k/uL ABG HCO3 (21-25) mmol/L ABG Total CO2 (19-24) mmol/L ABG O2 Saturation (94-97) % Sodium (137-145) mmol/L Chloride (98-107) mmol/L BUN (9-20) mg/dL Glucose (74-99) mg/dL POC Glucose (mg/dL) 184 H (75-99) mg/dL Calcium (8.4-10.2) mg/dL Microbiology - Last 24 Hours (Table) 04/16/17 12:52 Blood Culture - Preliminary Blood No Growth after 96 hours Assessment and Plan (1) Pneumonia Current Visit: Yes Status: Acute Code(s): J18.9 - PNEUMONIA, UNSPECIFIED ORGANISM SNOMED Code(s): 520165743 (2) Acute respiratory failure Current Visit: Yes Status: Acute Code(s): J96.00 - ACUTE RESPIRATORY FAILURE , UNSP W HYPOXIA OR HYPERCAPNIA SNOMED Code(s): 79745539 (3) CHF (congestive heart failure) Current Visit: Yes Status: Acute Code(s): I50.9 - HEART FAILURE, UNSPECIFIED SNOMED Code(s): 89482448 (4) Diabetes mellitus, type 2 Current Visit: No Status: Acute Code(s): E11.9 - TYPE 2 DIABETES MELLITUS WITHOUT COMPLICATIONS SNOMED Code(s): 89516172 (5) Sepsis Current Visit: Yes Status: Acute Code(s): A41.9 - SEPSIS, UNSPECIFIED ORGANISM SNOMED Code(s): 90887990 (6) CAD (coronary artery disease) Current Visit: Yes Status: Acute Code(s): I25.10 - ATHSCL HEART DISEASE OF [place] CORONARY ARTERY W/O ANG PCTRS SNOMED Code(s): 95006773 (7) Chronic atrial fibrillation Current Visit: Yes Status: Acute Code(s): I48.2 - CHRONIC ATRIAL FIBRILLATION SNOMED Code(s): 845714033 Plan: This patient is still intubated. Attempts at obtaining were unsuccessful. Patient has underlying atrial fibrillation with backup pacemaker. 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 Anticoagulation therapy to be held for 48 hours prior to the procedure. Continue rest of the medications. Prognosis is guarded. 04/21/2079: Patient is still intubated. Patient chest x-ray still shows bilateral infiltrates. He is being treated for pneumonia and CHF. May resume anticoagulation. The patient is not going to take S2 tomorrow.
[2017-04-21] MEDS: APIXABAN 2.5 MG TABLET PO SCH ×2 (09:54→20:02)
[2017-04-21] MEDS: ASPIRIN 81 MG PO SCH (09:54)
[2017-04-21] MEDS: FUROSEMIDE 10 MG/ML 4 ML VIAL IV SCH ×3 (10:00→23:36)
--- NOTE | 2017-04-21 10:57 | P.PN ---
Subjective Progress Note Date: 04/21/17 Principal diagnosis: Acute hypoxic respiratory failure secondary to acute systolic congestive heart failure, and bilateral staph aureus pneumonia. This is a very pleasant 86-year-old gentleman who follows with Dr. Auguste as his primary care physician. He has a history of coronary artery disease with previous coronary artery bypass grafting 4 in 2006, permanent pacemaker implantation, diabetes mellitus, obstructive sleep apnea not currently on CPAP, hypertension, hyperlipidemia. He presented here to the emergency room early this morning with complaints of increasing shortness of breath, cough and congestion. He also had increased lower extremity edema. Positive orthopnea. Chest x-ray reveals diffuse airspace disease with bilateral infusion and acute pulmonary edema. He is currently on BiPAP 10/5 and 60% FiO2. He has been initiated on Lasix 40 mg IV push every 8 hours. White count 26.3. Hemoglobin 14.2. INR 1.4. Creatinine 1.14. ProBNP 7020. Troponin 0.046. Influenza screen is negative. The patient is seen again today 04/20/2017 in follow-up in the intensive care unit. He remains intubated and on the mechanical ventilator. Current settings assist control of 28, tidal volume 450, FiO2 30% and a PEEP of 5. Morning blood gases reveal a P O2 of 94, pCO2 38, pH 7.41. The patient was given a daily interruption of sedation and unfortunately continues to have episodes of tachycardia, tachypnea and restlessness. He is alert while off sedation however and does follow commands. He is currently back on propofol at 30 mcg/kg /m. 0.9 normal saline at KVO, being nourished with [place] HP 50 mL per hour which is his goal. His microbiology of the sputum is positive for Staphylococcus aureus pneumonia. Blood cultures revealing no growth. White count 11.9. Hemoglobin 11.6. BUN 80, creatinine 1.20. He is currently hypertensive. Afebrile. Tachypneic. Chest x-ray continues to show evidence of multilobar pneumonia suspect adult respiratory distress syndrome and underlying pulmonary edema. Patient was reevaluated today on 04/21/2017, patient remains on mechanical ventilation, his ventilator settings were adjusted, he is now on assist control rate of 24, tidal volume remains at 450, FiO2 is 30%, and PEEP is still at 5. His peak airway pressure is in the low 20s, plateau pressure is about 15. I: E ratio is 1:2.0. ABG showed a pO2 of 84 pCO2 of 39 pH of 7.43. CBC was noted to be relatively normal. Renal profile showed elevated BUN of 85 creatinine of 1, however his chest x-ray has worsened significantly since the Lasix was placed on hold. I recommended restarting the Lasix today at 40 mg IV push every 8 hours. His screening for C. difficile is negative. His meds were all reviewed, patient remains on antibiotics in the form of vancomycin and Merrem Objective - Vital Signs Vital signs: Vital Signs Temp 98.2 F 04/21/17 08:00 Pulse 53 L 04/21/17 09:33 Resp 42 H 04/21/17 09:33 BP 184/87 04/21/17 09:33 Pulse Ox 96 04/21/17 09:33 Intake & Output 04/20/17 04/21/17 04/21/17 18:59 06:59 18:59 Intake Total 1617.77 1216 540.115 Output Total 2195 914 150 Balance -577.23 302 390.115 Weight 103.8 kg 101.4 kg Intake: IV 253 276 46 0.9 220 240 40 0.9 A-Line and CVP 33 36 6 Intake, IV Titration 614.77 100 394.115 Amount Meropenem 1 gm In Sodium 200 100 Chloride 0.9% 100 ml @ 200 mls/hr IVPB Q12HR [facility] Rx#:[id number] Propofol 1,000 mg In 84.77 100 44.115 Empty Bag 1 bag @ Titrate IV .Q0M [facility] Rx#: [id number] Sodium Chloride 0.9% 1, 80 000 ml @ 20 mls/hr IV . Q24H [facility] Rx#:[id number] Vancomycin 1,750 mg In 250 250 Sodium Chloride 0.9% 250 ml @ 125 mls/hr IVPB Q24HR [facility] Rx#:[id number] Tube Feeding 750 750 100 Other 90 Output: Urine 2195 910 150 Stool 4 Other: Voiding Method Indwelling Catheter Indwelling Catheter Indwelling Catheter ABP, PAP, CO, CI - Last Documented Arterial Blood Pressure 85/79 - Exam GENERAL EXAM: Sedated, intubated. comfortable in no apparent distress. HEAD: Normocephalic. EYES: Sluggish reaction of pupils, equal size. NOSE: Clear with pink turbinates. THROAT: Oral endotracheal and nasogastric tubes remain in place. NECK: No masses, no JVD. CHEST: No chest wall deformity. LUNGS: Equal air entry with crackles in the bilateral posterior bases. CVS: S1 and S2 normal with no audible murmur, irregular rhythm. ABDOMEN: No hepatosplenomegaly, normal bowel sounds, no guarding or rigidity. SPINE: No scoliosis or deformity SKIN: No rashes CENTRAL NERVOUS SYSTEM: Sedated. Could not be assessed, however the patient was off propofol earlier, and he was getting extremely agitated, tachycardic, tachypneic, and his blood pressure was noted to be elevated. EXTREMITIES: There 1-2+ peripheral edema. No clubbing, no cyanosis. Peripheral pulses are intact. - Labs CBC & Chem 7: 04/21/17 04:50 04/21/17 04:50 Labs: Abnormal Lab Results - Last 24 Hours (Table) 04/20/17 04/20/17 04/20/17 Range/Units 13:19 17:15 23:43 WBC (3.8-10.6) k/uL RBC (4.30-5.90) m/uL Hgb (13.0-17.5) gm/dL Hct (39.0-53.0) % MCHC (31.0-37.0) g/dL Neutrophils # (1.3-7.7) k/uL ABG HCO3 (21-25) mmol/L ABG Total CO2 (19-24) mmol/L ABG O2 Saturation (94-97) % Sodium (137-145) mmol/L Chloride (98-107) mmol/L BUN (9-20) mg/dL Glucose (74-99) mg/dL POC Glucose (mg/dL) 141 H 143 H 189 H (75-99) mg/dL Calcium (8.4-10.2) mg/dL 04/21/17 04/21/17 04/21/17 Range/Units 04:47 04:50 04:50 WBC 11.3 H (3.8-10.6) k/uL RBC 4.28 L (4.30-5.90) m/uL Hgb 11.5 L (13.0-17.5) gm/dL Hct 37.8 L (39.0-53.0) % MCHC 30.4 L (31.0-37.0) g/dL Neutrophils # 8.5 H (1.3-7.7) k/uL ABG HCO3 26 H (21-25) mmol/L ABG Total CO2 27 H (19-24) mmol/L ABG O2 Saturation 97.6 H (94-97) % Sodium 146 H (137-145) mmol/L Chloride 112 H (98-107) mmol/L BUN 85 H* (9-20) mg/dL Glucose 175 H (74-99) mg/dL POC Glucose (mg/dL) (75-99) mg/dL Calcium 8.0 L (8.4-10.2) mg/dL 04/21/17 Range/Units 05:48 WBC (3.8-10.6) k/uL RBC (4.30-5.90) m/uL Hgb (13.0-17.5) gm/dL Hct (39.0-53.0) % MCHC (31.0-37.0) g/dL Neutrophils # (1.3-7.7) k/uL ABG HCO3 (21-25) mmol/L ABG Total CO2 (19-24) mmol/L ABG O2 Saturation (94-97) % Sodium (137-145) mmol/L Chloride (98-107) mmol/L BUN (9-20) mg/dL Glucose (74-99) mg/dL POC Glucose (mg/dL) 184 H (75-99) mg/dL Calcium (8.4-10.2) mg/dL Microbiology - Last 24 Hours (Table) 04/16/17 12:52 Blood Culture - Preliminary Blood No Growth after 96 hours Assessment and Plan Assessment: 1 Acute hypoxic respiratory failure secondary to an acute exacerbation of systolic congestive heart failure as well as an acute Staphylococcus aureus pneumonia. Subsequent deterioration requiring intubation and mechanical ventilatory support. Chest x-ray continues to show evidence of multilobar pneumonia, fluid volume overload. Remains on diuretics. Remains on vancomycin and meropenem. #2 Leukocytosis. Sputum now positive for Staphylococcus aureus. Strongly suspect staph aureus pneumonia. Methicillin sensitive staph aureus. #3 Mild troponin leak. Suspect demand ischemia with myocardial infarction type 2 secondary to acute hypoxic respiratory failure. #4 Coronary artery disease with previous coronary artery bypass grafting. #5 Mildly impaired left ventricular systolic function with ejection fraction 45- 50%. #6 Atrial fibrillation, status post permanent pacemaker implantation in 2013. Anticoagulated with Eliquis. #7 Diabetes mellitus, type II. #8 Hypertension. #9 Hyperlipidemia. #10 Coronary artery disease with previous coronary artery bypass grafting 4 in 2006. Cardiac catheterization in 2008 treated medically. #11 Acute renal failure, will restart diuretics since the chest x-ray significantly worsened after holding diuretics for 1 day. We will continue to monitor renal status and the renal picture Recommendation: Continue mechanical ventilation, the ventilator settings were adjusted, and discussed with the nursing staff and respiratory staff to keep the flow rate high, keep the tidal volume at 450, decrease the respiratory rate , . Continue nutritional support, patient is on enteral feeding, restart diuretics, failed the daily interruption sedation and weaning again. No plans to consider tracheostomy at this point, but will likely addressed next week if the patient remains on mechanical ventilation. Critical care time is 40 minutes. Time with Patient: Greater than 30
--- NOTE | 2017-04-21 11:13 | P.PN ---
Subjective Progress Note Date: 04/21/17 04/19/2017 Patient seen and examined at the bedside on rounds with Dr. Auguste. Patient remains intubated in the intensive care unit. Patients levophed has been weaned off. He remains on propofol for sedation. Weaning trial yesterday was unsuccessful due to tachypnea. Chest x-ray this morning: Correlate for possible ARDS, pneumonia, pulmonary edema. patchy bibasilar airspace disease. He remains on Lasix 40 mg IV every 12 hours. Sputum cultures positive for staph aureus. Blood cultures are negative at 48 hour alem. Urine culture is negative. White count this morning is 11.0. He is currently on meropenem and vancomycin. 04/20/2017 Patient remains intubated in the intensive care unit by Dr. Auguste. Patient has failed daily weaning attempts secondary to tachycardia and tachypnea. The patient underwent CPAP trial this morning which again was unsuccessful. The patient's propofol was resumed. Sputum cultures positive for Staphylococcus aureus. Patient remains on meropenem and vancomycin. Patient was receiving IV Lasix every 12 hours due to congestive heart failure. This has been stopped today secondary to elevated BUN. BUN 80. Creatinine 1.20. ABG: PH 7.41, CO2 38, pO2 94, bicarb 24. White count is 11.9. He remains bradycardic with a rate in the 50s. Blood pressure is elevated at 154/55. RR 30s. Afebrile. Remains on tube feedings at goal and tolerating well. Chest x-ray 04/20/2017: Correlate for pneumonia, ARDs, pulmonary edema. 04/21/2017 Patient seen and examined on rounds this morning with Dr. Auguste. Patient remains intubated and sedated in the intensive care unit. Patients son is at the bedside. Patient has failed daily weaning attempts secondary to tachycardia and tachypnea. Per son, he spoke with Dr. Grossman yesterday regarding trach and peg. He wishes to proceed with trach and peg early next week if patient is unable to be successfully extubated. His Lasix was restarted this morning per pulmonary: 40 mg IV every 8 hours. He remains on meropenem and vancomycin. White count this morning is 11.3. BUN 85. Creatinine 1.0. ABG this morning: PH 7.43, CO2 39, pO2 84, bicarb 26. Testing for C. diff was negative. Chest x-ray 04/21/2017: Mixed alveolar and interstitial process with bilateral effusions and infiltrates. Differential includes diffuse pneumonia, ARDS or CHF. Objective - Vital Signs Vital signs: Vital Signs Temp 98.2 F 04/21/17 08:00 Pulse 53 L 04/21/17 09:33 Resp 42 H 04/21/17 09:33 BP 184/87 04/21/17 09:33 Pulse Ox 96 04/21/17 09:33 Intake & Output 04/20/17 04/21/17 04/21/17 18:59 06:59 18:59 Intake Total 1617.77 1216 540.115 Output Total 2195 914 150 Balance -577.23 302 390.115 Weight 103.8 kg 101.4 kg Intake: IV 253 276 46 0.9 220 240 40 0.9 A-Line and CVP 33 36 6 Intake, IV Titration 614.77 100 394.115 Amount Meropenem 1 gm In Sodium 200 100 Chloride 0.9% 100 ml @ 200 mls/hr IVPB Q12HR [facility] Rx#:[id number] Propofol 1,000 mg In 84.77 100 44.115 Empty Bag 1 bag @ Titrate IV .Q0M [facility] Rx#: [id number] Sodium Chloride 0.9% 1, 80 000 ml @ 20 mls/hr IV . Q24H [facility] Rx#:[id number] Vancomycin 1,750 mg In 250 250 Sodium Chloride 0.9% 250 ml @ 125 mls/hr IVPB Q24HR [facility] Rx#:[id number] Tube Feeding 750 750 100 Other 90 Output: Urine 2195 910 150 Stool 4 Other: Voiding Method Indwelling Catheter Indwelling Catheter Indwelling Catheter ABP, PAP, CO, CI - Last Documented Arterial Blood Pressure 85/79 - Exam GENERAL: This is a 86-year-old male who remains intubated and sedated on mechanical ventilation in the intensive care unit. HEENT: ET tube noted. Head is atraumatic, normocephalic. Pupils are equal, round, and reactive to light. Sclerae anicteric. Conjunctivae are clear. Mucus membranes of the mouth are moist. Neck is supple. RESPIRATORY: ET tube in place. Lungs with rhonchi bilaterally anteriorly. Rales to bilateral bases. Remains on mechanical ventilation with FiO2 of 30%. Oxygen saturations greater than 92%. CARDIOVASCULAR: Bradycardic. S1 and S2 noted. No systolic or diastolic murmur auscultated. No JVD noted. No S3 or S4 noted. GASTROINTESTINAL: No distention noted. Abdomen soft and round. Normal active bowel sounds auscultated x 4 quadrants. No pain or tenderness noted upon palpation. INTEGUMENTARY: No cyanosis. No jaundice. No rashes noted. No cellulitis noted. EXTREMITIES: 2+ peripheral pulses. +2 bilateral upper and lower extremity edema. NEUROLOGIC: Unable to assess secondary to mechanical ventilation and sedation PSYCHIATRIC: Unable to assess secondary to mechanical ventilation and sedation - Labs CBC & Chem 7: 04/21/17 04:50 04/21/17 04:50 Labs: Abnormal Lab Results - Last 24 Hours (Table) 04/20/17 04/20/17 04/20/17 Range/Units 13:19 17:15 23:43 WBC (3.8-10.6) k/uL RBC (4.30-5.90) m/uL Hgb (13.0-17.5) gm/dL Hct (39.0-53.0) % MCHC (31.0-37.0) g/dL Neutrophils # (1.3-7.7) k/uL ABG HCO3 (21-25) mmol/L ABG Total CO2 (19-24) mmol/L ABG O2 Saturation (94-97) % Sodium (137-145) mmol/L Chloride (98-107) mmol/L BUN (9-20) mg/dL Glucose (74-99) mg/dL POC Glucose (mg/dL) 141 H 143 H 189 H (75-99) mg/dL Calcium (8.4-10.2) mg/dL 04/21/17 04/21/17 04/21/17 Range/Units 04:47 04:50 04:50 WBC 11.3 H (3.8-10.6) k/uL RBC 4.28 L (4.30-5.90) m/uL Hgb 11.5 L (13.0-17.5) gm/dL Hct 37.8 L (39.0-53.0) % MCHC 30.4 L (31.0-37.0) g/dL Neutrophils # 8.5 H (1.3-7.7) k/uL ABG HCO3 26 H (21-25) mmol/L ABG Total CO2 27 H (19-24) mmol/L ABG O2 Saturation 97.6 H (94-97) % Sodium 146 H (137-145) mmol/L Chloride 112 H (98-107) mmol/L BUN 85 H* (9-20) mg/dL Glucose 175 H (74-99) mg/dL POC Glucose (mg/dL) (75-99) mg/dL Calcium 8.0 L (8.4-10.2) mg/dL 04/21/17 Range/Units 05:48 WBC (3.8-10.6) k/uL RBC (4.30-5.90) m/uL Hgb (13.0-17.5) gm/dL Hct (39.0-53.0) % MCHC (31.0-37.0) g/dL Neutrophils # (1.3-7.7) k/uL ABG HCO3 (21-25) mmol/L ABG Total CO2 (19-24) mmol/L ABG O2 Saturation (94-97) % Sodium (137-145) mmol/L Chloride (98-107) mmol/L BUN (9-20) mg/dL Glucose (74-99) mg/dL POC Glucose (mg/dL) 184 H (75-99) mg/dL Calcium (8.4-10.2) mg/dL Microbiology - Last 24 Hours (Table) 04/16/17 12:52 Blood Culture - Preliminary Blood No Growth after 96 hours Assessment and Plan Plan: ASSESSMENT: Acute hypoxic respiratory failure requiring mechanical ventilation secondary to exacerbation of congestive heart failure and staph aureus pneumonia Acute exacerbation of systolic congestive heart failure, EF 45% Right midlung pneumonia, sputum culture positive for staph aureus Septic shock with leukocytosis and hypotension, requiring vasopressor support, suspect secondary to pneumonia, culture positive for staph aureus Mild troponin leak, likely due to demand ischemia with myocardial infarction type 2 secondary to acute hypoxic respiratory failure Acute kidney injury, likely secondary to IV diuretics Coronary artery disease with previous CABG X 4 in 2006 History of atrial fibrillation with permanent pacemaker insertion in 2013, and snf anticoagulation with Eliquis Diabetes mellitus, type II, hemoglobin A1c 15.6% Essential hypertension Hyperlipidemia Obesity: BMI 32.0 PLAN: Continue ICU management per manager care Lasix restarted today per pulmonary: 40 mg IV every 8 hours Monitor kidney function Continue antibiotics: Patient currently on vancomycin and meropenem Continue tube feedings NovoLog sliding scale insulin coverage Home meds as appropriate Monitor labs GI prophylaxis: Protonix 40 mg IV Daily DVT prophylaxis: Eliquis 2.5mg PO BID Monitor vital signs and address as appropriate Further recommendations pending patient's course Patient's son would like to proceed with trach and peg early next week if patient is unable to be successfully weaned from the ventilator Nurse practitioner note has been reviewed by physician. Signing provider agrees with the documented findings, assessment, and plan of care.
[2017-04-21 11:59] LABS: Glucose,Whole Blood 162 mg/dL (75-99)
[2017-04-21] MEDS: SODIUM CHLORIDE 0.9% 1,000 ML IV SCH (13:32)
[2017-04-21 18:07] LABS: Glucose,Whole Blood 149 mg/dL (75-99)
[2017-04-21 23:41] LABS: Glucose,Whole Blood 158 mg/dL (75-99)
[2017-04-22] MEDS: IPRATROPIUM-ALBUTEROL 3 ML NEB INHALATION SCH ×7 (00:04→23:32)
[2017-04-22 04:46] LABS: Basophils # (A) 0.1 k/uL (0-0.2); Basophils % (A) 1 %; Eosinophils # (A) 0.6 k/uL (0-0.7); Eosinophils % (A) 5 %; HCT 39.6 % (39.0-53.0); Hypochromasia Slight; Lymphocytes # (A) 1.3 k/uL (1.0-4.8); Lymphocytes % (A) 11 %; MCH 26.8 pg (25.0-35.0); MCHC 30.4 g/dL (31.0-37.0); MCV 88.3 fL (80.0-100.0); Mean Platelet Volume 7.2; Monocytes # (A) 0.7 k/uL (0-1.0); Monocytes % (A) 6 %; Neutrophils # (A) 8.8 k/uL (1.3-7.7); Neutrophils % (A) 76 %; Platelet Count 259 k/uL (150-450); RBC 4.49 m/uL (4.30-5.90); RDW 13.5 % (11.5-15.5); WBC 11.6 k/uL (3.8-10.6)
[2017-04-22] MEDS: PROPOFOL 1,000 MG in EMPTY BAG 1 BAG IV SCH ×4 (04:57→23:20)
[2017-04-22 04:59] LABS: Anion Gap 6 mmol/L; Blood Urea Nitrogen 71 mg/dL (9-20); Carbon Dioxide 30 mmol/L (22-30); Chloride 113 mmol/L (98-107); Glucose 172 mg/dL (74-99); Magnesium 2.1 mg/dL (1.6-2.3); Phosphorus 3.3 mg/dL (2.5-4.5); Sodium 149 mmol/L (137-145)
[2017-04-22 04:59] LABS: Glucose,Whole Blood 163 mg/dL (75-99)
[2017-04-22] MEDS: INSULIN ASPART 100 UNIT/ML 1 ML 10 ML VIAL SQ SCH ×3 (04:59→18:31)
[2017-04-22 07:31] LABS: ABG Base Excess 3.3 mmol/L; ABG HCO3 27 mmol/L (21-25); ABG Oxygen Saturation 96.4 % (94-97); ABG PCO2 39 mmHg (35-45); ABG PH 7.45 (7.35-7.45); ABG PO2 84 mmHg (83-108); ABG TCO2 29 mmol/L (19-24)
--- NOTE | 2017-04-22 07:49 | XR ---
EXAMINATION TYPE: XR chest 1V portable DATE OF EXAM: 04/22/2017 COMPARISON: Prior chest x-ray 04/21/2017 HISTORY: Intubated TECHNIQUE: Single frontal view of the chest is obtained. FINDINGS: Endotracheal tube and NG tube are overlying appropriate positions, left jugular central ve nous catheter is again noted and the pacemaker is stable. Patient is post median sternotomy. Heart re cristal enlarged. Bilateral airspace disease persists. IMPRESSION: Correlate for ARDS, pneumonia, pulmonary edema, no significant interval change
[2017-04-22] MEDS ORDERED: VANCOMYCIN TROUGH DUE 1 EACH MISC MISCELLANE ONE (08:00)
[2017-04-22] MEDS: HYDROmorphone 0.5 MG/0.5 ML SYRINGE IVP PRN (08:23)
[2017-04-22] MEDS: PANTOPRAZOLE 40 MG/10 ML VIAL IVP SCH (08:24)
[2017-04-22] MEDS: FUROSEMIDE 10 MG/ML 4 ML VIAL IV SCH ×3 (08:24→23:20)
[2017-04-22] MEDS: VANCOMYCIN 1,750 MG in SODIUM CHLORIDE 0.9% 250 ML IVPB SCH (08:25)
[2017-04-22] MEDS: MEROPENEM 1 GM in SODIUM CHLORIDE 0.9% 100 ML IVPB SCH (08:25)
[2017-04-22] MEDS: APIXABAN 2.5 MG TABLET PO SCH ×2 (10:11→20:53)
[2017-04-22] MEDS: metFORMIN 500 MG TAB PO SCH ×2 (10:11→20:53)
[2017-04-22] MEDS: ASPIRIN 81 MG PO SCH (10:11)
[2017-04-22] MEDS: ATORVASTATIN 20 MG TAB PO SCH (10:11)
[2017-04-22] MEDS: CHLORHEXIDINE GLUCONATE 15 ML CUP MUCOUS MEM SCH ×2 (10:11→20:53)
--- NOTE | 2017-04-22 10:43 | P.PN ---
Subjective Progress Note Date: 04/22/17 This 86-year-old gentleman was admitted with increasing shortness of breath and evidence of possible CHF and pneumonia combination. Patient is off Levophed now. His blood pressures running about 120 systolic. His diuresing fairly well. Chest x-ray shows some persistent infiltrates on the right side which may represent pneumonia. Patient is being started on antibiotics. I will start him on small dose of beta blockers and also an DEVENDRA inhibitor. Will continue with IV diuretics. Progress note for 04/18/2017: This patient is admitted with restricted failure related to CHF and pneumonia. He she is diuresing well. Chest x-ray shows mild improvement, but there is bilateral infiltrates. Patient is also on antibiotics. Attempts at weaning were not successful. We'll continue current medical therapy. Prognosis is guarded. Progress note for 04/19/2017. Patient is still intubated . Unable to extubate. His sputum cultures are growing staph. A chest x-ray still shows bilateral infiltrates. Apparently, the family doesn't want patient to have tracheostomy. There is a consideration that patient may be made comfort care. Prognosis is poor. Continue current medical therapy. Progress note for 04/20/2017: This patient is still intubated. His chest x-ray showed slight improvement. Attempts at weaning again were unsuccessful. Patient is a [place] fibrillation with underlying pacemaker rhythm. His urine output is good. His sputum is growing staph. BUN is high. Lasix diuretics are being held. Lungs appeared to show diminished breath sounds with rhonchi. Heart is irregular. Progress note for 04/21/2017: The patient is still intubated and sedated. There were plans for possible tracheostomy and Tuesday. It appears that the family wants to wait for a few more days. Attempts are being made to see if he can be weaned off the respirator. If tracheostomy not planned for Tuesday, patient will go back on his anticoagulant agent. His rhythm is atrial fibrillation with underlying pacemaker rhythm. Chest x-ray continues to bilateral infiltrates. Patient is congested been antibiotic therapy along with diuretics. It. Prognosis is poor. Progress note 04/22/2017: This patient is still intubated and sedated. Chest x- ray. She'll show significant infiltrate, more so on the right side. I doubt patient could be extubated. Continues to be in atrial fibrillation. Patient may need tracheostomy within a short bit of time. Prognosis is guarded Objective - Vital Signs Vital signs: Vital Signs Temp 98.2 F 04/22/17 08:00 Pulse 49 L 04/22/17 10:00 Resp 22 04/22/17 10:00 BP 99/44 04/22/17 10:00 Pulse Ox 96 04/22/17 10:00 Intake & Output 04/21/17 04/22/17 04/22/17 18:59 06:59 18:59 Intake Total 4727.552 5255 665.190 Output Total 2950 1995 285 Balance -1455.143 -656 380.190 Weight 101.5 kg Intake: IV 253 299 46 0.9 220 260 40 0.9 for CVP 33 39 6 Intake, IV Titration 451.857 100 439.190 Amount Meropenem 1 gm In Sodium 100 Chloride 0.9% 100 ml @ 200 mls/hr IVPB Q12HR [facility] Rx#:[id number] Meropenem 1 gm In Sodium 100 Chloride 0.9% 100 ml @ 200 mls/hr IVPB Q8HR [facility] Rx#:[id number] Propofol 1,000 mg In 101.857 100 89.190 Empty Bag 1 bag @ Titrate IV .Q0M [facility] Rx#: [id number] Vancomycin 1,750 mg In 250 Sodium Chloride 0.9% 250 ml @ 125 mls/hr IVPB Q16H [facility] Rx#:[id number] Vancomycin 1,750 mg In 250 Sodium Chloride 0.9% 250 ml @ 125 mls/hr IVPB Q24HR [facility] Rx#:[id number] Tube Feeding 790 850 150 Other 90 30 Output: Urine 2950 1795 285 Stool 200 Other: Voiding Method Indwelling Catheter Indwelling Catheter ABP, PAP, CO, CI - Last Documented Arterial Blood Pressure 85/79 - Exam GENERAL EXAM: Patient is intubated and sedated HEENT: Normocephalic. Normal reaction of pupils, equal size, normal range of extraocular motion. No erythema or exudates in the throat. NECK: No masses, no nuchal rigidity. CHEST: No chest wall deformity. LUNGS: Diminished breath sounds, more so in right base HEART: Distant heart sounds ABDOMEN: No hepatosplenomegaly, normal bowel sounds, no guarding or rigidity. SKIN: No rashes CENTRAL NERVOUS SYSTEM: Deferred EXTREMITIES: No cyanosis or clubbing] - Labs CBC & Chem 7: 04/22/17 04:30 04/22/17 04:30 Labs: Abnormal Lab Results - Last 24 Hours (Table) 04/21/17 04/21/17 04/21/17 Range/Units 11:56 18:06 23:39 WBC (3.8-10.6) k/uL Hgb (13.0-17.5) gm/dL MCHC (31.0-37.0) g/dL Neutrophils # (1.3-7.7) k/uL ABG HCO3 (21-25) mmol/L ABG Total CO2 (19-24) mmol/L Sodium (137-145) mmol/L Chloride (98-107) mmol/L BUN (9-20) mg/dL Glucose (74-99) mg/dL POC Glucose (mg/dL) 162 H 149 H 158 H (75-99) mg/dL Calcium (8.4-10.2) mg/dL 04/22/17 04/22/17 04/22/17 Range/Units 04:30 04:30 04:58 WBC 11.6 H (3.8-10.6) k/uL Hgb 12.0 L (13.0-17.5) gm/dL MCHC 30.4 L (31.0-37.0) g/dL Neutrophils # 8.8 H (1.3-7.7) k/uL ABG HCO3 (21-25) mmol/L ABG Total CO2 (19-24) mmol/L Sodium 149 H (137-145) mmol/L Chloride 113 H (98-107) mmol/L BUN 71 H (9-20) mg/dL Glucose 172 H (74-99) mg/dL POC Glucose (mg/dL) 163 H (75-99) mg/dL Calcium 8.0 L (8.4-10.2) mg/dL 04/22/17 Range/Units 07:24 WBC (3.8-10.6) k/uL Hgb (13.0-17.5) gm/dL MCHC (31.0-37.0) g/dL Neutrophils # (1.3-7.7) k/uL ABG HCO3 27 H (21-25) mmol/L ABG Total CO2 29 H (19-24) mmol/L Sodium (137-145) mmol/L Chloride (98-107) mmol/L BUN (9-20) mg/dL Glucose (74-99) mg/dL POC Glucose (mg/dL) (75-99) mg/dL Calcium (8.4-10.2) mg/dL Microbiology - Last 24 Hours (Table) 04/16/17 12:52 Blood Culture - Preliminary Blood No Growth after 120 hours Assessment and Plan (1) Pneumonia Current Visit: Yes Status: Acute Code(s): J18.9 - PNEUMONIA, UNSPECIFIED ORGANISM SNOMED Code(s): 599323049 (2) Acute respiratory failure Current Visit: Yes Status: Acute Code(s): J96.00 - ACUTE RESPIRATORY FAILURE , UNSP W HYPOXIA OR HYPERCAPNIA SNOMED Code(s): 80468923 (3) CHF (congestive heart failure) Current Visit: Yes Status: Acute Code(s): I50.9 - HEART FAILURE, UNSPECIFIED SNOMED Code(s): 48912291 (4) Diabetes mellitus, type 2 Current Visit: No Status: Acute Code(s): E11.9 - TYPE 2 DIABETES MELLITUS WITHOUT COMPLICATIONS SNOMED Code(s): 19306797 (5) Sepsis Current Visit: Yes Status: Acute Code(s): A41.9 - SEPSIS, UNSPECIFIED ORGANISM SNOMED Code(s): 29656906 (6) CAD (coronary artery disease) Current Visit: Yes Status: Acute Code(s): I25.10 - ATHSCL HEART DISEASE OF [place] CORONARY ARTERY W/O ANG PCTRS SNOMED Code(s): 48853300 (7) Chronic atrial fibrillation Current Visit: Yes Status: Acute Code(s): I48.2 - CHRONIC ATRIAL FIBRILLATION SNOMED Code(s): 412801719 Plan: Continue current supportive care. Possible tracheostomy soon. Prognosis is poor
--- NOTE | 2017-04-22 11:02 | P.PN ---
Subjective Progress Note Date: 04/22/17 Principal diagnosis: Acute hypoxic respiratory failure secondary to acute systolic congestive heart failure, and bilateral staph aureus pneumonia. This is a very pleasant 86-year-old gentleman who follows with Dr. Auguste as his primary care physician. He has a history of coronary artery disease with previous coronary artery bypass grafting 4 in 2006, permanent pacemaker implantation, diabetes mellitus, obstructive sleep apnea not currently on CPAP, hypertension, hyperlipidemia. He presented here to the emergency room early this morning with complaints of increasing shortness of breath, cough and congestion. He also had increased lower extremity edema. Positive orthopnea. Chest x-ray reveals diffuse airspace disease with bilateral infusion and acute pulmonary edema. He is currently on BiPAP 10/5 and 60% FiO2. He has been initiated on Lasix 40 mg IV push every 8 hours. White count 26.3. Hemoglobin 14.2. INR 1.4. Creatinine 1.14. ProBNP 7020. Troponin 0.046. Influenza screen is negative. The patient is seen again today 04/20/2017 in follow-up in the intensive care unit. He remains intubated and on the mechanical ventilator. Current settings assist control of 28, tidal volume 450, FiO2 30% and a PEEP of 5. Morning blood gases reveal a P O2 of 94, pCO2 38, pH 7.41. The patient was given a daily interruption of sedation and unfortunately continues to have episodes of tachycardia, tachypnea and restlessness. He is alert while off sedation however and does follow commands. He is currently back on propofol at 30 mcg/kg /m. 0.9 normal saline at KVO, being nourished with Kelton HP 50 mL per hour which is his goal. His microbiology of the sputum is positive for Staphylococcus aureus pneumonia. Blood cultures revealing no growth. White count 11.9. Hemoglobin 11.6. BUN 80, creatinine 1.20. He is currently hypertensive. Afebrile. Tachypneic. Chest x-ray continues to show evidence of multilobar pneumonia suspect adult respiratory distress syndrome and underlying pulmonary edema. Patient was reevaluated today on 04/21/2017, patient remains on mechanical ventilation, his ventilator settings were adjusted, he is now on assist control rate of 24, tidal volume remains at 450, FiO2 is 30%, and PEEP is still at 5. His peak airway pressure is in the low 20s, plateau pressure is about 15. I: E ratio is 1:2.0. ABG showed a pO2 of 84 pCO2 of 39 pH of 7.43. CBC was noted to be relatively normal. Renal profile showed elevated BUN of 85 creatinine of 1, however his chest x-ray has worsened significantly since the Lasix was placed on hold. I recommended restarting the Lasix today at 40 mg IV push every 8 hours. His screening for C. difficile is negative. His meds were all reviewed, patient remains on antibiotics in the form of vancomycin and Merrem Patient was reevaluated today on 04/22/2017, remains on mechanical ventilation, his ventilator settings are unchanged from yesterday. Patient remains on a relatively low tidal volume, rate of 20, flow rate is 85, FiO2 at 30%. ABG showed a pO2 of 84 pCO2 of 39 pH of 7.45. Chest x-ray is showing slight improvement in the interstitial edema. Patient was placed on diuretics again yesterday. And he is presently about 2 L negative balance. Electrolytes showed hyponatremia with a sodium of 149, BUN is 71 creatinine is 0.90. Bicarb is 30. WBC count is 11.6 hemoglobin is 12. Chest x-ray again is consistent with pulmonary edema, and underlying pneumonia is strongly suspected. His medications were all reviewed, patient remains on Eliquis, Merrem, and vancomycin. However considering the final sputum culture is showing MSSA, I will go ahead and discontinue Merrem and vancomycin, will treat mostly with Zosyn. Objective - Vital Signs Vital signs: Vital Signs Temp 98.2 F 04/22/17 08:00 Pulse 49 L 04/22/17 10:00 Resp 22 04/22/17 10:00 BP 99/44 04/22/17 10:00 Pulse Ox 96 04/22/17 10:00 Intake & Output 04/21/17 04/22/17 04/22/17 18:59 06:59 18:59 Intake Total 1437.568 6933 665.190 Output Total 2950 1995 285 Balance -1455.143 -656 380.190 Weight 101.5 kg Intake: IV 253 299 46 0.9 220 260 40 0.9 for CVP 33 39 6 Intake, IV Titration 451.857 100 439.190 Amount Meropenem 1 gm In Sodium 100 Chloride 0.9% 100 ml @ 200 mls/hr IVPB Q12HR [facility] Rx#:[id number] Meropenem 1 gm In Sodium 100 Chloride 0.9% 100 ml @ 200 mls/hr IVPB Q8HR [facility] Rx#:[id number] Propofol 1,000 mg In 101.857 100 89.190 Empty Bag 1 bag @ Titrate IV .Q0M [facility] Rx#: [id number] Vancomycin 1,750 mg In 250 Sodium Chloride 0.9% 250 ml @ 125 mls/hr IVPB Q16H [facility] Rx#:[id number] Vancomycin 1,750 mg In 250 Sodium Chloride 0.9% 250 ml @ 125 mls/hr IVPB Q24HR [facility] Rx#:[id number] Tube Feeding 790 850 150 Other 90 30 Output: Urine 2950 1795 285 Stool 200 Other: Voiding Method Indwelling Catheter Indwelling Catheter Indwelling Catheter ABP, PAP, CO, CI - Last Documented Arterial Blood Pressure 85/79 - Exam GENERAL EXAM: Sedated, intubated. comfortable in no apparent distress. HEAD: Normocephalic. EYES: Sluggish reaction of pupils, equal size. NOSE: Clear with pink turbinates. THROAT: Oral endotracheal and nasogastric tubes remain in place. NECK: No masses, no JVD. CHEST: No chest wall deformity. LUNGS: Equal air entry with crackles in the bilateral posterior bases. No rhonchi, no wheezes. CVS: S1 and S2 normal with no audible murmur, irregular rhythm. ABDOMEN: No hepatosplenomegaly, normal bowel sounds, no guarding or rigidity. SPINE: No scoliosis or deformity SKIN: No rashes CENTRAL NERVOUS SYSTEM: Sedated. Could not be assessed, patient is yet to have his sedation interruption in the next half hour. EXTREMITIES: There 1-2+ peripheral edema. No clubbing, no cyanosis. Peripheral pulses are intact. - Labs CBC & Chem 7: 04/22/17 04:30 04/22/17 04:30 Labs: Abnormal Lab Results - Last 24 Hours (Table) 04/21/17 04/21/17 04/21/17 Range/Units 11:56 18:06 23:39 WBC (3.8-10.6) k/uL Hgb (13.0-17.5) gm/dL MCHC (31.0-37.0) g/dL Neutrophils # (1.3-7.7) k/uL ABG HCO3 (21-25) mmol/L ABG Total CO2 (19-24) mmol/L Sodium (137-145) mmol/L Chloride (98-107) mmol/L BUN (9-20) mg/dL Glucose (74-99) mg/dL POC Glucose (mg/dL) 162 H 149 H 158 H (75-99) mg/dL Calcium (8.4-10.2) mg/dL 04/22/17 04/22/17 04/22/17 Range/Units 04:30 04:30 04:58 WBC 11.6 H (3.8-10.6) k/uL Hgb 12.0 L (13.0-17.5) gm/dL MCHC 30.4 L (31.0-37.0) g/dL Neutrophils # 8.8 H (1.3-7.7) k/uL ABG HCO3 (21-25) mmol/L ABG Total CO2 (19-24) mmol/L Sodium 149 H (137-145) mmol/L Chloride 113 H (98-107) mmol/L BUN 71 H (9-20) mg/dL Glucose 172 H (74-99) mg/dL POC Glucose (mg/dL) 163 H (75-99) mg/dL Calcium 8.0 L (8.4-10.2) mg/dL 04/22/17 Range/Units 07:24 WBC (3.8-10.6) k/uL Hgb (13.0-17.5) gm/dL MCHC (31.0-37.0) g/dL Neutrophils # (1.3-7.7) k/uL ABG HCO3 27 H (21-25) mmol/L ABG Total CO2 29 H (19-24) mmol/L Sodium (137-145) mmol/L Chloride (98-107) mmol/L BUN (9-20) mg/dL Glucose (74-99) mg/dL POC Glucose (mg/dL) (75-99) mg/dL Calcium (8.4-10.2) mg/dL Microbiology - Last 24 Hours (Table) 04/16/17 12:52 Blood Culture - Preliminary Blood No Growth after 120 hours Assessment and Plan Assessment: 1 Acute hypoxic respiratory failure secondary to an acute exacerbation of systolic congestive heart failure as well as an acute Staphylococcus aureus pneumonia. Subsequent deterioration requiring intubation and mechanical ventilatory support. Chest x-ray continues to show evidence of multilobar pneumonia, fluid volume overload. Remains on diuretics. Remains on vancomycin and meropenem. Which I will discontinue and place the patient on Zosyn. #2 Leukocytosis. Sputum now positive for Staphylococcus aureus. Methicillin sensitive staph aureus. #3 Mild troponin leak. Suspect demand ischemia with myocardial infarction type 2 secondary to acute hypoxic respiratory failure. #4 Coronary artery disease with previous coronary artery bypass grafting. #5 Mildly impaired left ventricular systolic function with ejection fraction 45- 50%. #6 Atrial fibrillation, status post permanent pacemaker implantation in 2013. Anticoagulated with Eliquis. #7 Diabetes mellitus, type II. #8 Hypertension. #9 Hyperlipidemia. #10 Coronary artery disease with previous coronary artery bypass grafting 4 in 2006. Cardiac catheterization in 2008 treated medically. #11 Acute renal failure, will restart diuretics since the chest x-ray significantly worsened after holding diuretics for 1 day. We will continue to monitor renal status and the renal picture Recommendation: Continue mechanical ventilation, the ventilator settings are unchanged, and discussed with the nursing staff and respiratory staff to keep the flow rate high, cut down the respiratory rate to 20 Continue nutritional support, patient is on enteral feeding, continue diuretics, continue daily sedation interruption. Not quite ready for weaning at this point. Critical care time is 35 minutes. Time with Patient: Greater than 30
[2017-04-22] MEDS: PIPERACILLIN-TAZOBACTAM 3.375 GM in DEXTROSE/WATER 1 50ML.BAG IVPB SCH ×2 (11:51→20:53)
[2017-04-22 11:54] LABS: Glucose,Whole Blood 168 mg/dL (75-99)
[2017-04-22] MEDS ORDERED: NOREPINEPHRIN 4 MG-0.9% NS PMX 0 MG/0 ML ML IV ONE (12:18)
[2017-04-22] MEDS: METOPROLOL TARTRATE 25 MG TAB PO SCH ×2 (12:24→20:53)
[2017-04-22] MEDS: SODIUM CHLORIDE 0.9% 1,000 ML IV SCH (12:45)
[2017-04-22 12:50] LABS: Ionized Calcium 4.9 mg/dL (4.5-5.3)
[2017-04-22 13:04] LABS: Magnesium 2.2 mg/dL (1.6-2.3); Phosphorus 3.8 mg/dL (2.5-4.5); Potassium 3.9 mmol/L (3.5-5.1)
[2017-04-22] MEDS: LISINOPRIL 2.5 MG TAB PO SCH (16:09)
--- NOTE | 2017-04-22 17:22 | PN ---
PROGRESS NOTE DATE OF SERVICE: 04/22/2017 BRIEF HISTORY: This patient is an 86-year-old male who is admitted to the hospital with acute hypoxemic respiratory failure secondary to acute exacerbation of systolic CHF and bilateral pneumonia. The patient is currently on mechanical ventilation and continues to require mechanical ventilation. VITAL SIGNS: Temperature 98.2, pulse 49, respiration 22, blood pressure of 99/44, oxygen saturation 96%. MEDICATIONS: The patient remains on Merrem IV, propofol, IV vancomycin, and tube feeding is continued. GENERAL EXAMINATION: Patient remains intubated, in no acute distress. HEENT: Atraumatic, normocephalic. Pupils do have a sluggish reaction. Extraocular movements cannot be judged. Patient has ET tube in place. NG tube in place. NECK: Supple. No goiter or lymphadenopathy. JVD is negative. No carotid bruit heard. LUNGS: Positive basilar crackles, scattered rhonchi. Heart is regular rate and rhythm without any murmurs, gallop rhythm. ABDOMEN: Soft, nontender, nondistended. Bowel sounds positive. EXTREMITIES: One to two plus edema. No clubbing or cyanosis. LABS: CBC, white blood count 11.6, hemoglobin 12, hematocrit 39.6 and platelet count of 259. Chemical profile, sodium 149, potassium 4.0, chloride 113, bicarb 30, BUN 71, creatinine 0.9, glucose 172. ASSESSMENT: 1. Acute hypoxemic respiratory failure. 2. Acute exacerbation of systolic congestive heart failure. 3. Staphylococcus aureus pneumonia. 4. Leukocytosis. 5. Mild troponin leak, mostly ischemia-induced myocardial infection type 2 secondary to acute hypoxemic respiratory failure. 6. Coronary artery disease with history of coronary artery bypass grafting. 7. Mild impairment of systolic function; ejection fraction of 40% to 50%. 8. Atrial fibrillation. Patient is status post permanent pacemaker. He remains on Eliquis. 9. Diabetes mellitus, type 2. 10.Hypertension. 11.Hyperlipidemia. 12.Acute renal failure. Patient remains on ICU and is being managed by the measurement supervisor. Patient's IV Lasix is resumed secondary to worsening of his CHF after discontinuing Lasix. The patient continues to have nutritional support from NG tube and continues on daily sedation interruption for weaning trial. MMODL / IJN: [id number] /
[2017-04-22 18:11] LABS: Glucose,Whole Blood 147 mg/dL (75-99)
[2017-04-23] MEDS ORDERED: VANCOMYCIN 1,750 MG in SODIUM CHLORIDE 0.9% 250 ML IVPB SCH ×2
[2017-04-23 00:37] LABS: Glucose,Whole Blood 164 mg/dL (75-99)
[2017-04-23] MEDS: INSULIN ASPART 100 UNIT/ML 1 ML 10 ML VIAL SQ SCH ×5 (00:39→23:56)
[2017-04-23] MEDS: IPRATROPIUM-ALBUTEROL 3 ML NEB INHALATION SCH ×6 (02:59→23:36)
[2017-04-23] MEDS: PROPOFOL 1,000 MG in EMPTY BAG 1 BAG IV SCH ×2 (03:04→07:49)
[2017-04-23 04:50] LABS: Basophils # (A) 0.1 k/uL (0-0.2); Basophils % (A) 1 %; Eosinophils # (A) 0.6 k/uL (0-0.7); Eosinophils % (A) 5 %; HGB 12.1 gm/dL (13.0-17.5); Hypochromasia Moderate; Lymphocytes # (A) 1.4 k/uL (1.0-4.8); Lymphocytes % (A) 12 %; MCHC 30.3 g/dL (31.0-37.0); MCV 88.9 fL (80.0-100.0); Mean Platelet Volume 7.1; Monocytes # (A) 0.7 k/uL (0-1.0); Monocytes % (A) 6 %; Neutrophils # (A) 8.4 k/uL (1.3-7.7); Neutrophils % (A) 74 %; Platelet Count 247 k/uL (150-450); RDW 13.5 % (11.5-15.5); WBC 11.4 k/uL (3.8-10.6)
[2017-04-23 05:06] LABS: Glucose,Whole Blood 155 mg/dL (75-99)
[2017-04-23 05:16] LABS: Anion Gap 6 mmol/L; Blood Urea Nitrogen 69 mg/dL (9-20); Calcium 8.3 mg/dL (8.4-10.2); Carbon Dioxide 33 mmol/L (22-30); Chloride 112 mmol/L (98-107); Glucose 155 mg/dL (74-99); Magnesium 2.1 mg/dL (1.6-2.3); Potassium 3.8 mmol/L (3.5-5.1); Sodium 151 mmol/L (137-145)
[2017-04-23] MEDS: PIPERACILLIN-TAZOBACTAM 3.375 GM in DEXTROSE/WATER 1 50ML.BAG IVPB SCH ×3 (05:22→21:33)
[2017-04-23] MEDS ORDERED: Potassium Replacement Protocol 1 EACH MISC MISCELLANE PRN (06:13)
[2017-04-23] MEDS: HYDROmorphone 0.5 MG/0.5 ML SYRINGE IVP PRN ×5 (06:22→23:16)
--- NOTE | 2017-04-23 06:32 | XR ---
EXAMINATION TYPE: XR chest 1V portable DATE OF EXAM: 04/23/2017 HISTORY: Tube placement. REFERENCE: Previous study dated 04/22/2017. FINDINGS: There has been a midline sternotomy. There is a bipolar pacemaker in place on the left. The patient is ET tube and NG tube remain in place, unchanged in appearance. A left internal jugular catheter remains in place. Its tip is in the superior vena cava. The heart is mildly enlarged. There is vascular congestion and mild edema. The overall appearance has improved. IMPRESSION: IMPROVING CHANGES OF PULMONARY EDEMA.
[2017-04-23] MEDS ORDERED: POTASSIUM CHLORIDE ORAL LIQUID 40 MEQ/30 ML CUP NG-TUBE SCH (07:00)
[2017-04-23 07:52] LABS: ABG Base Excess 5.1 mmol/L; ABG HCO3 30 mmol/L (21-25); ABG Oxygen Saturation 97.9 % (94-97); ABG PCO2 47 mmHg (35-45); ABG PH 7.41 (7.35-7.45); ABG PO2 96 mmHg (83-108); ABG TCO2 31 mmol/L (19-24)
[2017-04-23] MEDS: FUROSEMIDE 10 MG/ML 4 ML VIAL IV SCH ×3 (08:55→23:50)
[2017-04-23] MEDS: APIXABAN 2.5 MG TABLET PO SCH ×2 (09:52→21:31)
[2017-04-23] MEDS: METOPROLOL TARTRATE 25 MG TAB PO SCH ×2 (09:52→21:31)
[2017-04-23] MEDS: CHLORHEXIDINE GLUCONATE 15 ML CUP MUCOUS MEM SCH ×2 (09:52→21:31)
[2017-04-23] MEDS: metFORMIN 500 MG TAB PO SCH ×2 (09:52→21:31)
[2017-04-23] MEDS: ATORVASTATIN 20 MG TAB PO SCH (09:52)
[2017-04-23] MEDS: ASPIRIN 81 MG PO SCH (09:52)
[2017-04-23] MEDS: PANTOPRAZOLE 40 MG/10 ML VIAL IVP SCH (09:52)
[2017-04-23] MEDS: LISINOPRIL 2.5 MG TAB PO SCH (11:43)
[2017-04-23 11:48] LABS: Glucose,Whole Blood 123 mg/dL (75-99)
--- NOTE | 2017-04-23 12:00 | P.PN ---
Subjective Progress Note Date: 04/23/17 Principal diagnosis: Acute hypoxic respiratory failure secondary to acute systolic congestive heart failure, and bilateral staph aureus pneumonia. This is a very pleasant 86-year-old gentleman who follows with Dr. Auguste as his primary care physician. He has a history of coronary artery disease with previous coronary artery bypass grafting 4 in 2006, permanent pacemaker implantation, diabetes mellitus, obstructive sleep apnea not currently on CPAP, hypertension, hyperlipidemia. He presented here to the emergency room early this morning with complaints of increasing shortness of breath, cough and congestion. He also had increased lower extremity edema. Positive orthopnea. Chest x-ray reveals diffuse airspace disease with bilateral infusion and acute pulmonary edema. He is currently on BiPAP 10/5 and 60% FiO2. He has been initiated on Lasix 40 mg IV push every 8 hours. White count 26.3. Hemoglobin 14.2. INR 1.4. Creatinine 1.14. ProBNP 7020. Troponin 0.046. Influenza screen is negative. The patient is seen again today 04/20/2017 in follow-up in the intensive care unit. He remains intubated and on the mechanical ventilator. Current settings assist control of 28, tidal volume 450, FiO2 30% and a PEEP of 5. Morning blood gases reveal a P O2 of 94, pCO2 38, pH 7.41. The patient was given a daily interruption of sedation and unfortunately continues to have episodes of tachycardia, tachypnea and restlessness. He is alert while off sedation however and does follow commands. He is currently back on propofol at 30 mcg/kg /m. 0.9 normal saline at KVO, being nourished with Kelton HP 50 mL per hour which is his goal. His microbiology of the sputum is positive for Staphylococcus aureus pneumonia. Blood cultures revealing no growth. White count 11.9. Hemoglobin 11.6. BUN 80, creatinine 1.20. He is currently hypertensive. Afebrile. Tachypneic. Chest x-ray continues to show evidence of multilobar pneumonia suspect adult respiratory distress syndrome and underlying pulmonary edema. Patient was reevaluated today on 04/21/2017, patient remains on mechanical ventilation, his ventilator settings were adjusted, he is now on assist control rate of 24, tidal volume remains at 450, FiO2 is 30%, and PEEP is still at 5. His peak airway pressure is in the low 20s, plateau pressure is about 15. I: E ratio is 1:2.0. ABG showed a pO2 of 84 pCO2 of 39 pH of 7.43. CBC was noted to be relatively normal. Renal profile showed elevated BUN of 85 creatinine of 1, however his chest x-ray has worsened significantly since the Lasix was placed on hold. I recommended restarting the Lasix today at 40 mg IV push every 8 hours. His screening for C. difficile is negative. His meds were all reviewed, patient remains on antibiotics in the form of vancomycin and Merrem Patient was reevaluated today on 04/22/2017, remains on mechanical ventilation, his ventilator settings are unchanged from yesterday. Patient remains on a relatively low tidal volume, rate of 20, flow rate is 85, FiO2 at 30%. ABG showed a pO2 of 84 pCO2 of 39 pH of 7.45. Chest x-ray is showing slight improvement in the interstitial edema. Patient was placed on diuretics again yesterday. And he is presently about 2 L negative balance. Electrolytes showed hyponatremia with a sodium of 149, BUN is 71 creatinine is 0.90. Bicarb is 30. WBC count is 11.6 hemoglobin is 12. Chest x-ray again is consistent with pulmonary edema, and underlying pneumonia is strongly suspected. His medications were all reviewed, patient remains on Eliquis, Merrem, and vancomycin. However considering the final sputum culture is showing MSSA, I will go ahead and discontinue Merrem and vancomycin, will treat mostly with Zosyn. Reevaluated today on 04/23/2017, patient remains on mechanical ventilations, FiO2 is 35% today, flow rates were cut down to 70, tidal volume remains the same , and the rate is 20. ABG showed a pO2 of 96 pCO2 of 47 pH of 7.41. Electrolytes continued to show hypernatremia which I will correct with free water flushes via nasogastric tube. Renal profile is about the same actually improved a bit with a BUN of 69 creatinine is 1.0. Chest x-ray is showing slight improvement in the pulmonary edema bilaterally. The more so on the left side significantly improved. Patient continues to have significant infiltrate involving the right lung, and I believe that his pneumonia secondary to MSSA. Patient is yet to have sedation interruption today, and assessment of mental status, and possibly assess for a short weaning trial if possible depending on his mental status. Yesterday that could not be accomplished because the patient became extremely agitated tachypneic and tachycardic. Objective - Vital Signs Vital signs: Vital Signs Temp 98.1 F 04/23/17 08:00 Pulse 49 L 04/23/17 10:00 Resp 16 04/23/17 10:00 BP 112/44 04/23/17 10:00 Pulse Ox 100 04/23/17 10:00 Intake & Output 04/22/17 04/23/17 04/23/17 18:59 06:59 18:59 Intake Total 6585.786 1657.413 732.898 Output Total 1180 2285 413 Balance 199.127 -1006.587 319.898 Weight 100.9 kg Intake: IV 193 299 77 0.9 160 260 65 0.9 for CVP 33 39 12 Intake, IV Titration 576.127 169.413 175.898 Amount Meropenem 1 gm In Sodium 100 Chloride 0.9% 100 ml @ 200 mls/hr IVPB Q8HR [facility] Rx#:[id number] Piperacillin-Tazobactam 3 50.0 18.75 .375 gm In Dextrose/Water 1 50ml.bag @ 12.5 mls/hr IVPB Q8H [facility] Rx#: [id number] Propofol 1,000 mg In 176.127 169.413 157.148 Empty Bag 1 bag @ Titrate IV .Q0M [facility] Rx#: [id number] Vancomycin 1,750 mg In 250 Sodium Chloride 0.9% 250 ml @ 125 mls/hr IVPB Q16H [facility] Rx#:[id number] Tube Feeding 550 750 150 Other 60 60 330 Output: Urine 1180 2185 413 Stool 100 Other: Voiding Method Indwelling Catheter Indwelling Catheter Indwelling Catheter # Bowel Movements 1 ABP, PAP, CO, CI - Last Documented Arterial Blood Pressure 85/79 - Exam GENERAL EXAM: Sedated, intubated. comfortable in no apparent distress. HEAD: Normocephalic. EYES: Sluggish reaction of pupils, equal size. NOSE: Clear with pink turbinates. THROAT: Oral endotracheal and nasogastric tubes remain in place. NECK: No masses, no JVD. CHEST: No chest wall deformity. LUNGS: Equal air entry with crackles in the bilateral posterior bases. No rhonchi, no wheezes. CVS: S1 and S2 normal with no audible murmur, irregular rhythm. ABDOMEN: No hepatosplenomegaly, normal bowel sounds, no guarding or rigidity. SPINE: No scoliosis or deformity SKIN: No rashes CENTRAL NERVOUS SYSTEM: Sedated. Could not be assessed, patient is yet to have his sedation interruption in the next half hour. EXTREMITIES: There is 1+ peripheral edema. No clubbing, no cyanosis. Peripheral pulses are intact. - Labs CBC & Chem 7: 04/23/17 04:40 04/23/17 04:40 Labs: Abnormal Lab Results - Last 24 Hours (Table) 04/22/17 04/23/17 04/23/17 Range/Units 18:09 00:36 04:40 WBC 11.4 H (3.8-10.6) k/uL Hgb 12.1 L (13.0-17.5) gm/dL MCHC 30.3 L (31.0-37.0) g/dL Neutrophils # 8.4 H (1.3-7.7) k/uL ABG pCO2 (35-45) mmHg ABG HCO3 (21-25) mmol/L ABG Total CO2 (19-24) mmol/L ABG O2 Saturation (94-97) % Sodium (137-145) mmol/L Chloride (98-107) mmol/L Carbon Dioxide (22-30) mmol/L BUN (9-20) mg/dL Glucose (74-99) mg/dL POC Glucose (mg/dL) 147 H 164 H (75-99) mg/dL Calcium (8.4-10.2) mg/dL 04/23/17 04/23/17 04/23/17 Range/Units 04:40 05:04 07:42 WBC (3.8-10.6) k/uL Hgb (13.0-17.5) gm/dL MCHC (31.0-37.0) g/dL Neutrophils # (1.3-7.7) k/uL ABG pCO2 47 H (35-45) mmHg ABG HCO3 30 H (21-25) mmol/L ABG Total CO2 31 H (19-24) mmol/L ABG O2 Saturation 97.9 H (94-97) % Sodium 151 H (137-145) mmol/L Chloride 112 H (98-107) mmol/L Carbon Dioxide 33 H (22-30) mmol/L BUN 69 H (9-20) mg/dL Glucose 155 H (74-99) mg/dL POC Glucose (mg/dL) 155 H (75-99) mg/dL Calcium 8.3 L (8.4-10.2) mg/dL 04/23/17 Range/Units 11:47 WBC (3.8-10.6) k/uL Hgb (13.0-17.5) gm/dL MCHC (31.0-37.0) g/dL Neutrophils # (1.3-7.7) k/uL ABG pCO2 (35-45) mmHg ABG HCO3 (21-25) mmol/L ABG Total CO2 (19-24) mmol/L ABG O2 Saturation (94-97) % Sodium (137-145) mmol/L Chloride (98-107) mmol/L Carbon Dioxide (22-30) mmol/L BUN (9-20) mg/dL Glucose (74-99) mg/dL POC Glucose (mg/dL) 123 H (75-99) mg/dL Calcium (8.4-10.2) mg/dL Microbiology - Last 24 Hours (Table) 04/16/17 12:52 Blood Culture - Final Blood No Growth after 144 hours Assessment and Plan Assessment: 1 Acute hypoxic respiratory failure secondary to an acute exacerbation of systolic congestive heart failure as well as an acute Staphylococcus aureus pneumonia. Subsequent deterioration requiring intubation and mechanical ventilatory support. Chest x-ray continues to show evidence of multilobar pneumonia, fluid volume overload. Remains on diuretics. Remains on vancomycin and meropenem. Which I will discontinue and place the patient on Zosyn. #2 Leukocytosis. Sputum now positive for Staphylococcus aureus. Methicillin sensitive staph aureus. #3 Mild troponin leak. Suspect demand ischemia with myocardial infarction type 2 secondary to acute hypoxic respiratory failure. #4 Coronary artery disease with previous coronary artery bypass grafting. #5 Mildly impaired left ventricular systolic function with ejection fraction 45- 50%. #6 Atrial fibrillation, status post permanent pacemaker implantation in 2013. Anticoagulated with Eliquis. #7 Diabetes mellitus, type II. #8 Hypertension. #9 Hyperlipidemia. #10 Coronary artery disease with previous coronary artery bypass grafting 4 in 2006. Cardiac catheterization in 2008 treated medically. #11 Acute renal failure, will restart diuretics since the chest x-ray significantly worsened after holding diuretics for 1 day. We will continue to monitor renal status and the renal picture Recommendation: Continue mechanical ventilation, respiratory rate is now 20 and FiO2 is 35%, plateau pressures in the range of 15.cut down the respiratory rate to 20 Continue nutritional support, patient is on enteral feeding, continue diuretics, continue daily sedation interruption. Would have sedation interruption today, and possibly a weaning trial depending on his overall mental status and clinical condition. Continue nutritional support. Continue antibiotics in the form of Zosyn. Continue GI and DVT prophylaxis. We'll continue to follow. Critical care time is 35 minutes. Time with Patient: Greater than 30
[2017-04-23] MEDS: SODIUM CHLORIDE 0.9% 1,000 ML IV SCH (12:11)
--- NOTE | 2017-04-23 15:26 | PN ---
PROGRESS NOTE This is a gentleman with atrial fibrillation, controlled ventricular rate, who is in respiratory failure and weaning efforts are in progress. He has underlying atrial fibrillation but he is in a paced rhythm, hemodynamically stable. S1 and S2 heard normally. Short systolic murmur noted. Lungs reveal diminished air entry. Abdomen and lower extremity exam is unchanged. This patient is still on a vent and weaning efforts, if unsuccessful, may end up with a tracheostomy. Cardiac-clarke, I am recommending no intervention other than continuing current medications which he is receiving for rate control. Hemodynamically stable. He is also on anticoagulation as well. He is receiving apixaban 2.5 mg b.i.d. and for rate control he is on metoprolol, has underlying pacemaker that is functioning well. Blood pressure today was 150/60. Pulse rate is 50 per minute, paced. S1 and S2 heard normally. Lungs reveal diminished air entry. Abdomen and lower extremity exam is unremarkable. We will see this patient as needed. MMODL / IJN: [id number] /
[2017-04-23 17:41] LABS: Glucose,Whole Blood 133 mg/dL (75-99)
--- NOTE | 2017-04-23 23:29 | PN ---
PROGRESS NOTE DATE OF SERVICE: 04/23/2017 Patient in ICU for acute hypoxemic respiratory failure and bilateral Staph aureus pneumonia requiring intubation. The patient remains on mechanical ventilation. VITAL SIGNS: Temperature 98.1, pulse 49, respirations 16, blood pressure 112/44, O2 saturation 100%. HEENT: Atraumatic, normocephalic. Pupils are sluggish to react. Buccal mucosa is fair. Neck is supple with no goiter or lymphadenopathy. JVD is negative. No carotid bruit heard. LUNGS: Bibasilar crackles. HEART: Regular rhythm without any murmurs, gallop rhythm. Abdomen is soft and nontender, nondistended. Bowel sounds positive. EXTREMITIES: No edema, clubbing, cyanosis. NEUROLOGICAL: Cannot be evaluated secondary to sedation. LAB: CBC: White blood count is 11.4, hemoglobin 12.1, hematocrit 40, platelet count of 247. Chemical profile: Sodium 151, potassium 6.8, chloride 112, bicarb 33, BUN 69, creatinine 1.0, glucose 155. ASSESSMENT: 1. Acute hypoxemic respiratory failure. 2. Acute exacerbation systolic congestive heart failure. 3. Staphylococcus aureus pneumonia. 4. Mild troponin leak, possible demand ischemia with myocardial infarction type 2 secondary to hypoxemic respiratory failure. 5. History of coronary artery disease with coronary artery bypass grafting. 6. Atrial fibrillation. The patient is anticoagulated with Eliquis. 7. Diabetes mellitus type 2. 8. Hypertension. 9. Hyperlipidemia. 10.Acute renal failure. The patient remains on mechanical ventilation. Air Support Control Officer is following the patient. Plan is to continue with the enteral tube feeding. The patient will be restarted on diuretics. Repeat chest x-ray was worsened due to hold on diuretic therapy. The patient remains on IV Zosyn, remains on GI and DVT prophylaxis. Mechanical ventilation is being managed by speed winder. Further recommendations depending on the clinical progress of the patient. MMODL / IJN: [id number] /
[2017-04-23 23:55] LABS: Glucose,Whole Blood 136 mg/dL (75-99)
[2017-04-24] MEDS: HYDROmorphone 0.5 MG/0.5 ML SYRINGE IVP PRN ×4 (03:05→23:29)
[2017-04-24] MEDS: IPRATROPIUM-ALBUTEROL 3 ML NEB INHALATION SCH ×6 (03:18→23:16)
[2017-04-24 04:58] LABS: Basophils # (A) 0.1 k/uL (0-0.2); Basophils % (A) 1 %; Eosinophils # (A) 0.6 k/uL (0-0.7); Eosinophils % (A) 5 %; HCT 39.3 % (39.0-53.0); HGB 11.6 gm/dL (13.0-17.5); Hypochromasia Moderate; Lymphocytes # (A) 1.3 k/uL (1.0-4.8); Lymphocytes % (A) 11 %; MCH 26.3 pg (25.0-35.0); MCHC 29.6 g/dL (31.0-37.0); MCV 88.8 fL (80.0-100.0); Mean Platelet Volume 7.7; Monocytes # (A) 0.6 k/uL (0-1.0); Monocytes % (A) 6 %; Neutrophils # (A) 8.6 k/uL (1.3-7.7); Neutrophils % (A) 76 %; Platelet Count 247 k/uL (150-450); RBC 4.42 m/uL (4.30-5.90); RDW 13.5 % (11.5-15.5); WBC 11.4 k/uL (3.8-10.6)
[2017-04-24] MEDS: PIPERACILLIN-TAZOBACTAM 3.375 GM in DEXTROSE/WATER 1 50ML.BAG IVPB SCH ×3 (04:58→20:07)
[2017-04-24 05:12] LABS: Anion Gap 6 mmol/L; Blood Urea Nitrogen 68 mg/dL (9-20); Calcium 8.4 mg/dL (8.4-10.2); Carbon Dioxide 34 mmol/L (22-30); Chloride 110 mmol/L (98-107); Glucose 113 mg/dL (74-99); Phosphorus 3.9 mg/dL (2.5-4.5); Potassium 3.9 mmol/L (3.5-5.1); Sodium 150 mmol/L (137-145)
[2017-04-24 05:36] LABS: ALT 36 U/L (21-72); AST 61 U/L (17-59); Albumin 2.2 g/dL (3.5-5.0); Alkaline Phosphatase 148 U/L (38-126); Total Bilirubin 0.9 mg/dL (0.2-1.3); Total Protein 5.3 g/dL (6.3-8.2)
[2017-04-24 06:03] LABS: Glucose,Whole Blood 102 mg/dL (75-99)
[2017-04-24] MEDS: INSULIN ASPART 100 UNIT/ML 1 ML 10 ML VIAL SQ SCH ×4 (06:04→23:28)
--- NOTE | 2017-04-24 06:44 | XR ---
EXAMINATION TYPE: XR chest 1V portable DATE OF EXAM: 04/24/2017 HISTORY: Tube placement. REFERENCE: Previous study dated 04/23/2017. FINDINGS: There has been a midline sternotomy. There is a multilead pacing device in place on the lef t. The patient is ET tube and NG tube remain in place, unchanged in appearance. There is worsening opacity in the right lung. There is some left basilar airspace disease. There are small, bilateral effusions. Heart size upper limits of normal. IMPRESSION: 1. WORSENING RIGHT-SIDED AIRSPACE DISEASE. 2. BORDERLINE CARDIOMEGALY. 3. SMALL, BILATERAL EFFUSIONS.
[2017-04-24] MEDS ORDERED: POTASSIUM CHLORIDE ORAL LIQUID 40 MEQ/30 ML CUP NG-TUBE SCH (07:00)
[2017-04-24] MEDS: APIXABAN 2.5 MG TABLET PO SCH ×2 (08:35→20:07)
[2017-04-24] MEDS: ATORVASTATIN 20 MG TAB PO SCH (08:35)
[2017-04-24] MEDS: metFORMIN 500 MG TAB PO SCH ×2 (08:35→20:07)
[2017-04-24] MEDS: LISINOPRIL 2.5 MG TAB PO SCH (08:35)
[2017-04-24] MEDS: CHLORHEXIDINE GLUCONATE 15 ML CUP MUCOUS MEM SCH ×2 (08:35→20:07)
[2017-04-24] MEDS: METOPROLOL TARTRATE 25 MG TAB PO SCH ×2 (08:35→20:07)
[2017-04-24] MEDS: ASPIRIN 81 MG PO SCH (08:35)
[2017-04-24] MEDS: FUROSEMIDE 10 MG/ML 4 ML VIAL IV SCH ×3 (08:35→23:28)
[2017-04-24] MEDS ORDERED: POTASSIUM BICARBONATE/CIT AC 20 MEQ TABLET.EFF PO ONE (08:45)
[2017-04-24 09:01] LABS: ABG Base Excess 6.2 mmol/L; ABG HCO3 31 mmol/L (21-25); ABG Oxygen Saturation 96.9 % (94-97); ABG PCO2 48 mmHg (35-45); ABG PH 7.42 (7.35-7.45); ABG PO2 93 mmHg (83-108); ABG TCO2 32 mmol/L (19-24)
[2017-04-24] MEDS: PANTOPRAZOLE 40 MG/10 ML VIAL IVP SCH (09:20)
[2017-04-24 11:33] LABS: Glucose,Whole Blood 128 mg/dL (75-99)
--- NOTE | 2017-04-24 14:44 | P.PN ---
Subjective Progress Note Date: 04/24/17 Principal diagnosis: Acute hypoxic respiratory failure secondary to acute systolic congestive heart failure, and bilateral staph aureus pneumonia. This is a very pleasant 86-year-old gentleman who follows with Dr. Auguste as his primary care physician. He has a history of coronary artery disease with previous coronary artery bypass grafting 4 in 2006, permanent pacemaker implantation, diabetes mellitus, obstructive sleep apnea not currently on CPAP, hypertension, hyperlipidemia. He presented here to the emergency room early this morning with complaints of increasing shortness of breath, cough and congestion. He also had increased lower extremity edema. Positive orthopnea. Chest x-ray reveals diffuse airspace disease with bilateral infusion and acute pulmonary edema. He is currently on BiPAP 10/5 and 60% FiO2. He has been initiated on Lasix 40 mg IV push every 8 hours. White count 26.3. Hemoglobin 14.2. INR 1.4. Creatinine 1.14. ProBNP 7020. Troponin 0.046. Influenza screen is negative. The patient is seen again today 04/20/2017 in follow-up in the intensive care unit. He remains intubated and on the mechanical ventilator. Current settings assist control of 28, tidal volume 450, FiO2 30% and a PEEP of 5. Morning blood gases reveal a P O2 of 94, pCO2 38, pH 7.41. The patient was given a daily interruption of sedation and unfortunately continues to have episodes of tachycardia, tachypnea and restlessness. He is alert while off sedation however and does follow commands. He is currently back on propofol at 30 mcg/kg /m. 0.9 normal saline at KVO, being nourished with [place] HP 50 mL per hour which is his goal. His microbiology of the sputum is positive for Staphylococcus aureus pneumonia. Blood cultures revealing no growth. White count 11.9. Hemoglobin 11.6. BUN 80, creatinine 1.20. He is currently hypertensive. Afebrile. Tachypneic. Chest x-ray continues to show evidence of multilobar pneumonia suspect adult respiratory distress syndrome and underlying pulmonary edema. Patient was reevaluated today on 04/21/2017, patient remains on mechanical ventilation, his ventilator settings were adjusted, he is now on assist control rate of 24, tidal volume remains at 450, FiO2 is 30%, and PEEP is still at 5. His peak airway pressure is in the low 20s, plateau pressure is about 15. I: E ratio is 1:2.0. ABG showed a pO2 of 84 pCO2 of 39 pH of 7.43. CBC was noted to be relatively normal. Renal profile showed elevated BUN of 85 creatinine of 1, however his chest x-ray has worsened significantly since the Lasix was placed on hold. I recommended restarting the Lasix today at 40 mg IV push every 8 hours. His screening for C. difficile is negative. His meds were all reviewed, patient remains on antibiotics in the form of vancomycin and Merrem Patient was reevaluated today on 04/22/2017, remains on mechanical ventilation, his ventilator settings are unchanged from yesterday. Patient remains on a relatively low tidal volume, rate of 20, flow rate is 85, FiO2 at 30%. ABG showed a pO2 of 84 pCO2 of 39 pH of 7.45. Chest x-ray is showing slight improvement in the interstitial edema. Patient was placed on diuretics again yesterday. And he is presently about 2 L negative balance. Electrolytes showed hyponatremia with a sodium of 149, BUN is 71 creatinine is 0.90. Bicarb is 30. WBC count is 11.6 hemoglobin is 12. Chest x-ray again is consistent with pulmonary edema, and underlying pneumonia is strongly suspected. His medications were all reviewed, patient remains on Eliquis, Merrem, and vancomycin. However considering the final sputum culture is showing MSSA, I will go ahead and discontinue Merrem and vancomycin, will treat mostly with Zosyn. Reevaluated today on 04/23/2017, patient remains on mechanical ventilations, FiO2 is 35% today, flow rates were cut down to 70, tidal volume remains the same , and the rate is 20. ABG showed a pO2 of 96 pCO2 of 47 pH of 7.41. Electrolytes continued to show hypernatremia which I will correct with free water flushes via nasogastric tube. Renal profile is about the same actually improved a bit with a BUN of 69 creatinine is 1.0. Chest x-ray is showing slight improvement in the pulmonary edema bilaterally. The more so on the left side significantly improved. Patient continues to have significant infiltrate involving the right lung, and I believe that his pneumonia secondary to MSSA. Patient is yet to have sedation interruption today, and assessment of mental status, and possibly assess for a short weaning trial if possible depending on his mental status. Yesterday that could not be accomplished because the patient became extremely agitated tachypneic and tachycardic. Patient was reevaluated today on 04/24/2017, remains on mechanical ventilation, FiO2 remains the same, assist control rate was cut down to 18, ABG showed a pO2 of 93 pCO2 of 48 pH of 7.43. Sodium remains a bit high in spite of free water flushes via nasogastric tube. Renal profile is basically about the same BUN is 68 creatinine is 1.10. CBC is relatively normal. Chest x-ray is showing slight improvement, patient remains hemodynamically stable, he is off propofol for the last 24 hours, and not showing significant mental improvement to address weaning patient does open his eyes, but does not follow any other instructions, and does not seem to be focusing. Hence we will keep propofol on hold, and we'll try to cut down on narcotics as much as possible. We will still plan to consider weaning trials once the patient is more awake. All his labs were reviewed chest x-ray was reviewed patient remains on nutritional support/enteral feeding. Objective - Vital Signs Vital signs: Vital Signs Temp 98.6 F 04/24/17 12:00 Pulse 49 L 04/24/17 13:00 Resp 26 H 04/24/17 13:00 BP 125/53 04/24/17 13:00 Pulse Ox 99 04/24/17 13:00 Intake & Output 04/23/17 04/24/17 04/24/17 18:59 06:59 18:59 Intake Total 0908.020 7475 1008.0 Output Total 1363 1580 625 Balance 280.898 -331 383.0 Weight 100.4 kg Intake: IV 238 299 138 0.9 205 260 120 0.9 for CVP 33 39 18 Intake, IV Titration 175.898 50.0 Amount Piperacillin-Tazobactam 3 18.75 50.0 .375 gm In Dextrose/Water 1 50ml.bag @ 12.5 mls/hr IVPB Q8H [facility] Rx#: [id number] Propofol 1,000 mg In 157.148 Empty Bag 1 bag @ Titrate IV .Q0M [facility] Rx#: [id number] Sodium Chloride 0.9% 1, 0 000 ml @ 20 mls/hr IV . Q24H [facility] Rx#:[id number] Tube Feeding 500 350 300 Other 730 600 520 Output: Urine 1363 1580 625 Other: Voiding Method Indwelling Catheter Indwelling Catheter Indwelling Catheter # Bowel Movements 1 ABP, PAP, CO, CI - Last Documented Arterial Blood Pressure 85/79 - Exam GENERAL EXAM: Sedated, intubated. comfortable in no apparent distress. HEAD: Normocephalic. EYES: Sluggish reaction of pupils, equal size. NOSE: Clear with pink turbinates. THROAT: Oral endotracheal and nasogastric tubes remain in place. NECK: No masses, no JVD. CHEST: No chest wall deformity. LUNGS: Equal air entry with crackles in the bilateral posterior bases. No rhonchi, no wheezes. CVS: S1 and S2 normal with no audible murmur, irregular rhythm. ABDOMEN: No hepatosplenomegaly, normal bowel sounds, no guarding or rigidity. SPINE: No scoliosis or deformity SKIN: No rashes CENTRAL NERVOUS SYSTEM: Sedated. Could not be assessed, patient is yet to have his sedation interruption in the next half hour. EXTREMITIES: There is trace of bipedal edema. No clubbing, no cyanosis. Peripheral pulses are intact. - Labs CBC & Chem 7: 04/24/17 04:40 04/24/17 04:40 Labs: Abnormal Lab Results - Last 24 Hours (Table) 04/23/17 04/23/17 04/24/17 Range/Units 17:38 23:53 04:40 WBC 11.4 H (3.8-10.6) k/uL Hgb 11.6 L (13.0-17.5) gm/dL MCHC 29.6 L (31.0-37.0) g/dL Neutrophils # 8.6 H (1.3-7.7) k/uL ABG pCO2 (35-45) mmHg ABG HCO3 (21-25) mmol/L ABG Total CO2 (19-24) mmol/L Sodium (137-145) mmol/L Chloride (98-107) mmol/L Carbon Dioxide (22-30) mmol/L BUN (9-20) mg/dL Glucose (74-99) mg/dL POC Glucose (mg/dL) 133 H 136 H (75-99) mg/dL AST (17-59) U/L Alkaline Phosphatase (38-126) U/L Total Protein (6.3-8.2) g/dL Albumin (3.5-5.0) g/dL 02/18/18 02/18/18 02/18/18 Range/Units 04:40 06:02 08:46 WBC (3.8-10.6) k/uL Hgb (13.0-17.5) gm/dL MCHC (31.0-37.0) g/dL Neutrophils # (1.3-7.7) k/uL ABG pCO2 48 H (35-45) mmHg ABG HCO3 31 H (21-25) mmol/L ABG Total CO2 32 H (19-24) mmol/L Sodium 150 H (137-145) mmol/L Chloride 110 H (98-107) mmol/L Carbon Dioxide 34 H (22-30) mmol/L BUN 68 H (9-20) mg/dL Glucose 113 H (74-99) mg/dL POC Glucose (mg/dL) 102 H (75-99) mg/dL AST 61 H (17-59) U/L Alkaline Phosphatase 148 H (38-126) U/L Total Protein 5.3 L (6.3-8.2) g/dL Albumin 2.2 L (3.5-5.0) g/dL 04/24/17 Range/Units 11:30 WBC (3.8-10.6) k/uL Hgb (13.0-17.5) gm/dL MCHC (31.0-37.0) g/dL Neutrophils # (1.3-7.7) k/uL ABG pCO2 (35-45) mmHg ABG HCO3 (21-25) mmol/L ABG Total CO2 (19-24) mmol/L Sodium (137-145) mmol/L Chloride (98-107) mmol/L Carbon Dioxide (22-30) mmol/L BUN (9-20) mg/dL Glucose (74-99) mg/dL POC Glucose (mg/dL) 128 H (75-99) mg/dL AST (17-59) U/L Alkaline Phosphatase (38-126) U/L Total Protein (6.3-8.2) g/dL Albumin (3.5-5.0) g/dL Assessment and Plan Assessment: 1 Acute hypoxic respiratory failure secondary to an acute exacerbation of systolic congestive heart failure as well as an acute Staphylococcus aureus pneumonia. Subsequent deterioration requiring intubation and mechanical ventilatory support. Chest x-ray continues to show evidence of multilobar pneumonia, fluid volume overload. Remains on diuretics. Patient is presently on Zosyn #2 Leukocytosis. Sputum now positive for Staphylococcus aureus. Methicillin sensitive staph aureus. #3 Mild troponin leak. Suspect demand ischemia with myocardial infarction type 2 secondary to acute hypoxic respiratory failure. #4 Coronary artery disease with previous coronary artery bypass grafting. #5 Mildly impaired left ventricular systolic function with ejection fraction 45- 50%. #6 Atrial fibrillation, status post permanent pacemaker implantation in 2013. Anticoagulated with Eliquis. #7 Diabetes mellitus, type II. #8 Hypertension. #9 Hyperlipidemia. #10 Coronary artery disease with previous coronary artery bypass grafting 4 in 2006. Cardiac catheterization in 2008 treated medically. #11 Acute renal failure, will cut down on diuresis slightly. Recommendation: Continue mechanical ventilation, continue antibiotics, Zosyn, continue bronchodilators, continue to hold sedation until the patient is awakened and able to follow instructions then we could even consider weaning trials. Prognosis remains relatively poor and guarded, if not much improvement noted in the next 24-48 hours, may have to consider tracheostomy and PEG tube placement. Prognosis remains guarded. Critical care time is 35 minutes. Time with Patient: Greater than 30
--- NOTE | 2017-04-24 15:22 | PN ---
PROGRESS NOTE DATE OF SERVICE: 04/24/2017 Patient remains in ICU. Remains on mechanical ventilation. Vital signs: Temperature of 98.6, pulse 49, respiration 26, blood pressure 125/53, pulse ox 99%. HEENT atraumatic, normocephalic. Pupils are sluggish to respond, but are equal. Extraocular movements cannot be charged. Patient remains sedated. Buccal mucosa fair. Neck is supple. No goiter or lymphadenopathy. JVD is negative. No carotid bruit heard. Lungs clear to auscultate. No rales, rhonchi, or wheezes. Heart is regular rate and rhythm without any murmurs, gallop rhythm. Abdomen is soft, nontender, nondistended. Bowel sounds positive. Extremities no edema, clubbing, or cyanosis. Neurological examination cannot be evaluated. Patient is sedated. LAB: CBC, white blood count of 11.4, hemoglobin 11.6 hematocrit 39.3, and platelet count of 247. Chemical profile sodium 150, potassium 3.9, chloride 110, bicarb 34, BUN 68, creatinine 1.1, glucose 113. ASSESSMENT: 1. Acute hypoxemic respiratory failure. 2. Acute exacerbation systolic congestive heart failure. 3. Staphylococcus aureus pneumonia. 4. Mild troponin leak myocardial infarction type 2. 5. Coronary artery disease. 6. Atrial fibrillation controlled ventricular response. Patient remains on Eliquis. 7. Diabetes mellitus type 2. 8. Hypertension. 9. Hyperlipidemia. The patient remains on mechanical ventilation. Continuous IV antibiotics and bronchodilator therapy. Shoe Salesperson is planning to hold sedation to awaken patient for further evaluation. Prognosis is pretty poor. Plan is to possibly do a tracheostomy and PEG tube if 24-48 hours. MMODL / IJN: [id number] /
[2017-04-24 18:32] LABS: Glucose,Whole Blood 182 mg/dL (75-99)
[2017-04-24] MEDS: SODIUM CHLORIDE 0.9% 1,000 ML IV SCH (20:07)
[2017-04-24 23:27] LABS: Glucose,Whole Blood 159 mg/dL (75-99)
[2017-04-25] MEDS: IPRATROPIUM-ALBUTEROL 3 ML NEB INHALATION SCH ×6 (03:02→23:19)
[2017-04-25] MEDS: HYDROmorphone 0.5 MG/0.5 ML SYRINGE IVP PRN ×6 (03:13→22:39)
[2017-04-25] MEDS: PIPERACILLIN-TAZOBACTAM 3.375 GM in DEXTROSE/WATER 1 50ML.BAG IVPB SCH ×3 (03:13→19:55)
[2017-04-25 05:08] LABS: Glucose,Whole Blood 146 mg/dL (75-99)
[2017-04-25] MEDS: INSULIN ASPART 100 UNIT/ML 1 ML 10 ML VIAL SQ SCH ×4 (05:08→23:45)
[2017-04-25 05:20] LABS: Basophils # (A) 0.1 k/uL (0-0.2); Basophils % (A) 1 %; Eosinophils # (A) 0.5 k/uL (0-0.7); Eosinophils % (A) 4 %; HCT 38.7 % (39.0-53.0); HGB 11.7 gm/dL (13.0-17.5); Hypochromasia Moderate; Lymphocytes # (A) 1.5 k/uL (1.0-4.8); Lymphocytes % (A) 13 %; MCHC 30.2 g/dL (31.0-37.0); MCV 89.7 fL (80.0-100.0); Mean Platelet Volume 7.4; Monocytes # (A) 0.7 k/uL (0-1.0); Monocytes % (A) 6 %; Neutrophils # (A) 9.1 k/uL (1.3-7.7); Neutrophils % (A) 75 %; Platelet Count 242 k/uL (150-450); RBC 4.32 m/uL (4.30-5.90); RDW 13.5 % (11.5-15.5); WBC 12.1 k/uL (3.8-10.6)
[2017-04-25 05:28] LABS: Anion Gap 8 mmol/L; Blood Urea Nitrogen 72 mg/dL (9-20); Calcium 8.4 mg/dL (8.4-10.2); Carbon Dioxide 34 mmol/L (22-30); Chloride 109 mmol/L (98-107); Glucose 161 mg/dL (74-99); Magnesium 2.1 mg/dL (1.6-2.3); Phosphorus 4.2 mg/dL (2.5-4.5); Potassium 3.8 mmol/L (3.5-5.1); Sodium 151 mmol/L (137-145)
[2017-04-25] MEDS ORDERED: POTASSIUM CHLORIDE ER 20 MEQ TAB.ER PO SCH (07:00)
[2017-04-25] MEDS ORDERED: POTASSIUM CHLORIDE ORAL LIQUID 40 MEQ/30 ML CUP NG-TUBE SCH (07:00)
[2017-04-25 08:04] LABS: ABG Base Excess 7.7 mmol/L; ABG HCO3 31 mmol/L (21-25); ABG Oxygen Saturation 99.2 % (94-97); ABG PCO2 43 mmHg (35-45); ABG PH 7.47 (7.35-7.45); ABG PO2 110 mmHg (83-108); ABG TCO2 33 mmol/L (19-24)
[2017-04-25] MEDS: FUROSEMIDE 10 MG/ML 4 ML VIAL IV SCH ×2 (08:05→20:23)
[2017-04-25] MEDS: PANTOPRAZOLE 40 MG/10 ML VIAL IVP SCH (08:05)
[2017-04-25] MEDS: METOPROLOL TARTRATE 25 MG TAB PO SCH ×2 (08:28→20:24)
[2017-04-25] MEDS: CHLORHEXIDINE GLUCONATE 15 ML CUP MUCOUS MEM SCH ×2 (08:28→19:40)
[2017-04-25] MEDS: metFORMIN 500 MG TAB PO SCH ×2 (08:28→20:23)
[2017-04-25] MEDS: ATORVASTATIN 20 MG TAB PO SCH (08:28)
[2017-04-25] MEDS: LISINOPRIL 2.5 MG TAB PO SCH (08:28)
--- NOTE | 2017-04-25 09:01 | XR ---
EXAMINATION TYPE: XR chest 1V portable DATE OF EXAM: 04/25/2017 COMPARISON: 04/24/2017 HISTORY: Shortness of breath TECHNIQUE: Single frontal view of the chest is obtained. FINDINGS: Bilateral areas of interstitial and mixed alveolar consolidation are noted. Left lower lob es difficult to assess due to overlying soft tissue artifact on today's exam. Cardiac device, ET tube , NG tube and postoperative changes appear stable. Could not exclude a pulmonary nodule or mass in th e right upper lobe. IMPRESSION: 1. Bilateral airspace disease appears stable worse on the right. Differential include venous congesti on. Interstitial pneumonia or pneumonitis also the differential diagnosis. 2. Follow-up to resolution to exclude right upper lobe pulmonary mass.
[2017-04-25 11:25] VITALS: BMI 31.1
[2017-04-25 11:47] LABS: Glucose,Whole Blood 148 mg/dL (75-99)
--- NOTE | 2017-04-25 11:54 | P.GSCN ---
<Amanda Marroquin - Last Filed: 04/25/17 11:33> History of Present Illness Consult date: 04/25/17 Reason for Consult: Placement of tracheostomy and percutaneous endoscopic gastrostomy tube Requesting physician: Greg Schulz History of present illness: This is an 86-year-old gentleman who normally follows with Dr. Antonio Auguste on an outpatient basis with a significant medical history of heart failure, coronary artery disease with 4 vessel CABG in 2006, new-onset diabetes type 2, hypertension, permanent pacemaker placement, hyperlipidemia, obstructive sleep apnea without current CPAP use, and previous tobacco dependence who presented to the emergency room on April 15 with difficulty in breathing over the previous 3 days. He was placed on BiPAP in the emergency room but subsequently required intubation. He has been in the intensive care unit since and has been unable to be weaned off of mechanical ventilation. Of note he does have MSSA pneumonia and is currently on IV Zosyn. He has been off sedation for 48 hours without improvement in his mental status. Dr. Kulkarni was consulted for placement of tracheostomy and percutaneous endoscopic gastrostomy tube. Review of Systems Per [id number] at the bedside and review of the chart the patient was short of breath for a few days before hospitalization. Prior to that he was independent, living at home with his when he takes care of. ROS unobtainable: due to endotracheal tube Past Medical History Past Medical History: Coronary Artery Disease (CAD), Chest Pain / Angina, Heart Failure, Hyperlipidemia, Hypertension, Sleep Apnea/CPAP/BIPAP Additional Past Medical History / Comment(s): Pt recently admitted 04/01/17, all medical hx obtained thru that documentation. NIDDM type II recently diagnosed 02/2017, pt states he has lost 21 pounds since January 2017 and does not know reason, PHILIPPE with CPAP no longer used d/t wt loss and doesn't fit well History of Any Multi-Drug Resistant Organisms: None Reported Past Surgical History: Adenoidectomy, Heart Catheterization, Hernia Repair, Pacemaker, Tonsillectomy Additional Past Surgical History / Comment(s): 12/2013 pacemaker, R inguinal hernia repair, 2006 CABG 4 vessel, 2008 cardiac cath/tx medically, colonoscopy. Past Anesthesia/Blood Transfusion Reactions: No Reported Reaction Type of Cardiac Device: Permanent Pacemaker Device Placement Date:: 2013 Smoking Status: Former smoker - Past Family History Mother Family Medical History: No Reported History Additional Family Medical History / Comment(s): Mother was healthy Father Family Medical History: Renal Disease Additional Family Medical History / Comment(s): Father had medical problems caused from exposure to motor fuels at his workplace. Medications and Allergies Home Medications Medication Instructions Recorded Confirmed Type Enalapril [Vasotec] 20 mg PO DAILY 04/01/17 04/15/17 History Furosemide [Lasix] 40 mg PO DAILY 04/01/17 04/15/17 History Isosorbide Mononitrate ER [Imdur] 30 mg PO DAILY 04/01/17 04/15/17 History Metoprolol Tartrate [Lopressor] 50 mg PO BID 04/01/17 04/15/17 History Potassium Chloride [Klor-Con 20] 20 meq PO DAILY 04/01/17 04/15/17 History Simvastatin 40 mg PO DAILY 04/01/17 04/15/17 History Aspirin 81 mg PO DAILY #0 04/02/17 04/15/17 Rx metFORMIN HCL [Glucophage] 1,000 mg PO BID #0 04/02/17 04/15/17 Rx Allergies Allergy/AdvReac Type Severity Reaction Status Date / Time No Known Allergies Allergy Verified 04/15/17 09:59 Surgical - Exam Vital Signs Temp Pulse Resp BP Pulse Ox 97.1 F L 92 16 201/93 87 L 04/15/17 09:21 04/15/17 09:21 04/15/17 09:21 04/15/17 09:21 04/15/17 09:21 - General no distress, obese - Eyes PERRL, normal ocular movement - Neck no masses, no bruits, trachea midline - Respiratory Lungs sounds diminished with coarse breath sounds in the bases. Respirations even, nonlabored on mechanical ventilation. Current ventilator settings assist control mode, FiO2 35%, tidal volume 450, respiratory rate 18, PEEP of 8. 8.0 ET tube present, 24 at the lip. - Cardiovascular S1, S2 present. Irregular rate and rhythm, slow atrial fibrillation on telemetry. Palpable peripheral pulses bilaterally. Right upper extremity and bilateral lower extremity edema present. Left internal jugular triple-lumen central line present. SCDs present. - Abdomen OG tube present, tube feeding infusing at 50 mL per hour. Abdomen: soft, non tender, bowel sounds - Genitourinary Corley present draining clear, yellow urine. - Rectum Flexiseal present draining liquid brown stool. - Integumentary no rash, no growths - Neurologic Eyes open periodically, does not focus. Does move his arms frequently but not to command. Does not follow any commands. - Psychiatric Patient has been off sedation for 48 hours. Results - Labs 04/25/17 04:50 04/25/17 04:50 Abnormal Lab Results - Last 24 Hours (Table) 04/24/17 04/24/17 04/24/17 Range/Units 11:30 18:30 23:24 WBC (3.8-10.6) k/uL Hgb (13.0-17.5) gm/dL Hct (39.0-53.0) % MCHC (31.0-37.0) g/dL Neutrophils # (1.3-7.7) k/uL ABG pH (7.35-7.45) ABG pO2 (83-108) mmHg ABG HCO3 (21-25) mmol/L ABG Total CO2 (19-24) mmol/L ABG O2 Saturation (94-97) % Sodium (137-145) mmol/L Chloride (98-107) mmol/L Carbon Dioxide (22-30) mmol/L BUN (9-20) mg/dL Glucose (74-99) mg/dL POC Glucose (mg/dL) 128 H 182 H 159 H (75-99) mg/dL 04/25/17 04/25/17 04/25/17 Range/Units 04:50 04:50 05:07 WBC 12.1 H (3.8-10.6) k/uL Hgb 11.7 L (13.0-17.5) gm/dL Hct 38.7 L (39.0-53.0) % MCHC 30.2 L (31.0-37.0) g/dL Neutrophils # 9.1 H (1.3-7.7) k/uL ABG pH (7.35-7.45) ABG pO2 (83-108) mmHg ABG HCO3 (21-25) mmol/L ABG Total CO2 (19-24) mmol/L ABG O2 Saturation (94-97) % Sodium 151 H (137-145) mmol/L Chloride 109 H (98-107) mmol/L Carbon Dioxide 34 H (22-30) mmol/L BUN 72 H (9-20) mg/dL Glucose 161 H (74-99) mg/dL POC Glucose (mg/dL) 146 H (75-99) mg/dL 04/25/17 Range/Units 08:02 WBC (3.8-10.6) k/uL Hgb (13.0-17.5) gm/dL Hct (39.0-53.0) % MCHC (31.0-37.0) g/dL Neutrophils # (1.3-7.7) k/uL ABG pH 7.47 H (7.35-7.45) ABG pO2 110 H (83-108) mmHg ABG HCO3 31 H (21-25) mmol/L ABG Total CO2 33 H (19-24) mmol/L ABG O2 Saturation 99.2 H (94-97) % Sodium (137-145) mmol/L Chloride (98-107) mmol/L Carbon Dioxide (22-30) mmol/L BUN (9-20) mg/dL Glucose (74-99) mg/dL POC Glucose (mg/dL) (75-99) mg/dL Diabetes panel 04/25/17 Range/Units 04:50 Sodium 151 H (137-145) mmol/L Potassium 3.8 (3.5-5.1) mmol/L Chloride 109 H (98-107) mmol/L Carbon Dioxide 34 H (22-30) mmol/L BUN 72 H (9-20) mg/dL Creatinine 1.20 (0.66-1.25) mg/dL Glucose 161 H (74-99) mg/dL Calcium 8.4 (8.4-10.2) mg/dL Calcium panel 04/25/17 Range/Units 04:50 Calcium 8.4 (8.4-10.2) mg/dL Phosphorus 4.2 (2.5-4.5) mg/dL Pituitary panel 04/25/17 Range/Units 04:50 Sodium 151 H (137-145) mmol/L Potassium 3.8 (3.5-5.1) mmol/L Chloride 109 H (98-107) mmol/L Carbon Dioxide 34 H (22-30) mmol/L BUN 72 H (9-20) mg/dL Creatinine 1.20 (0.66-1.25) mg/dL Glucose 161 H (74-99) mg/dL Calcium 8.4 (8.4-10.2) mg/dL Adrenal panel 04/25/17 Range/Units 04:50 Sodium 151 H (137-145) mmol/L Potassium 3.8 (3.5-5.1) mmol/L Chloride 109 H (98-107) mmol/L Carbon Dioxide 34 H (22-30) mmol/L BUN 72 H (9-20) mg/dL Creatinine 1.20 (0.66-1.25) mg/dL Glucose 161 H (74-99) mg/dL Calcium 8.4 (8.4-10.2) mg/dL - Imaging Chest x-ray: report reviewed, image reviewed Assessment and Plan (1) History of hypertension Current Visit: Yes Status: Chronic Code(s): Z86.79 - PERSONAL HISTORY OF OTHER DISEASES OF THE CIRCULATORY SYSTEM SNOMED Code(s): 175022590 (2) History of permanent cardiac pacemaker placement Current Visit: Yes Status: Chronic Code(s): Z95.0 - PRESENCE OF CARDIAC PACEMAKER SNOMED Code(s): 287527108 (3) History of coronary artery bypass graft Current Visit: No Status: Resolved Code(s): Z95.1 - PRESENCE OF AORTOCORONARY BYPASS GRAFT SNOMED Code(s): 347357196 (4) History of obstructive sleep apnea Current Visit: Yes Status: Chronic Code(s): Z86.69 - PERSONAL HISTORY OF DIS OF THE NERVOUS SYS AND SENSE ORGANS SNOMED Code(s): 706646938 (5) Acute respiratory failure Current Visit: Yes Status: Acute Code(s): J96.00 - ACUTE RESPIRATORY FAILURE , UNSP W HYPOXIA OR HYPERCAPNIA SNOMED Code(s): 18044408 (6) CAD (coronary artery disease) Current Visit: No Status: Chronic Code(s): I25.10 - ATHSCL HEART DISEASE OF [place] CORONARY ARTERY W/O ANG PCTRS SNOMED Code(s): 80112379 (7) CHF (congestive heart failure) Current Visit: Yes Status: Acute Code(s): I50.9 - HEART FAILURE, UNSPECIFIED SNOMED Code(s): 67802978 (8) Chronic atrial fibrillation Current Visit: Yes Status: Chronic Code(s): I48.2 - CHRONIC ATRIAL FIBRILLATION SNOMED Code(s): 716460877 (9) Pneumonia Current Visit: Yes Status: Acute Code(s): J18.9 - PNEUMONIA, UNSPECIFIED ORGANISM SNOMED Code(s): 431592250 (10) Pulmonary edema Current Visit: Yes Status: Acute Code(s): J81.1 - CHRONIC PULMONARY EDEMA SNOMED Code(s): 78445470 (11) Diabetes mellitus, type 2 Current Visit: Yes Status: Chronic Code(s): E11.9 - TYPE 2 DIABETES MELLITUS WITHOUT COMPLICATIONS SNOMED Code(s): 55036785 (12) Failure to wean from mechanical ventilation Current Visit: Yes Status: Acute Code(s): Z99.11 - DEPENDENCE ON RESPIRATOR [VENTILATOR] STATUS SNOMED Code(s): 179900359 Plan: The patient was seen and examined at the bedside. Chart/diagnostics were reviewed. Multiple conversations were had with the patient's son who is power of state attorney as to patient's wishes. Son Brad would like to think about the decision for a short time longer. We will tentatively schedule the patient for tracheostomy and PEG tube placement on Tuesday at noon. Dr. Kulkarni will be speaking with the son regarding patient's wishes. Continue current management per primary care service, pulmonology. Thank you Dr. Schulz for this consult. We look forward to the care of your patient. Time with Patient: Greater than 30 <Marc Kulkarni - Last Filed: 04/26/17 08:55> History of Present Illness History of present illness: CAN INTAKE WORKER notes reviewed and accepted. Patient unable to wean from the vent. We'll discuss in detail with family the procedure and end-of-life issues and proceed by their wishes. Surgical - Exam Osteopathic Statement: *. No significant issues noted on an osteopathic structural exam other than those noted in the History and Physical/Consult. Vital Signs Temp Pulse Resp BP Pulse Ox 97.1 F L 92 16 201/93 87 L 04/15/17 09:21 18 09:21 04/15/17 09:21 04/15/17 09:21 04/15/17 09:21 Results - Labs 04/26/17 05:00 04/26/17 05:00 Abnormal Lab Results - Last 24 Hours (Table) 04/25/17 04/25/17 04/25/17 Range/Units 11:46 18:19 23:24 WBC (3.8-10.6) k/uL RBC (4.30-5.90) m/uL Hgb (13.0-17.5) gm/dL Hct (39.0-53.0) % MCHC (31.0-37.0) g/dL Neutrophils # (1.3-7.7) k/uL Sodium (137-145) mmol/L Chloride (98-107) mmol/L Carbon Dioxide (22-30) mmol/L BUN (9-20) mg/dL Glucose (74-99) mg/dL POC Glucose (mg/dL) 148 H 138 H 130 H (75-99) mg/dL Calcium (8.4-10.2) mg/dL 04/26/17 04/26/17 Range/Units 05:00 05:00 WBC 10.7 H (3.8-10.6) k/uL RBC 4.15 L (4.30-5.90) m/uL Hgb 11.1 L (13.0-17.5) gm/dL Hct 37.4 L (39.0-53.0) % MCHC 29.6 L (31.0-37.0) g/dL Neutrophils # 7.9 H (1.3-7.7) k/uL Sodium 152 H (137-145) mmol/L Chloride 110 H (98-107) mmol/L Carbon Dioxide 32 H (22-30) mmol/L BUN 74 H (9-20) mg/dL Glucose 159 H (74-99) mg/dL POC Glucose (mg/dL) (75-99) mg/dL Calcium 8.3 L (8.4-10.2) mg/dL Diabetes panel 04/26/17 Range/Units 05:00 Sodium 152 H (137-145) mmol/L Potassium 3.5 (3.5-5.1) mmol/L Chloride 110 H (98-107) mmol/L Carbon Dioxide 32 H (22-30) mmol/L BUN 74 H (9-20) mg/dL Creatinine 1.11 (0.66-1.25) mg/dL Glucose 159 H (74-99) mg/dL Calcium 8.3 L (8.4-10.2) mg/dL Calcium panel 04/26/17 Range/Units 05:00 Calcium 8.3 L (8.4-10.2) mg/dL Phosphorus 4.3 (2.5-4.5) mg/dL Pituitary panel 04/26/17 Range/Units 05:00 Sodium 152 H (137-145) mmol/L Potassium 3.5 (3.5-5.1) mmol/L Chloride 110 H (98-107) mmol/L Carbon Dioxide 32 H (22-30) mmol/L BUN 74 H (9-20) mg/dL Creatinine 1.11 (0.66-1.25) mg/dL Glucose 159 H (74-99) mg/dL Calcium 8.3 L (8.4-10.2) mg/dL Adrenal panel 04/26/17 Range/Units 05:00 Sodium 152 H (137-145) mmol/L Potassium 3.5 (3.5-5.1) mmol/L Chloride 110 H (98-107) mmol/L Carbon Dioxide 32 H (22-30) mmol/L BUN 74 H (9-20) mg/dL Creatinine 1.11 (0.66-1.25) mg/dL Glucose 159 H (74-99) mg/dL Calcium 8.3 L (8.4-10.2) mg/dL
[2017-04-25] MEDS: SODIUM CHLORIDE 0.9% 1,000 ML IV SCH (12:29)
--- NOTE | 2017-04-25 14:13 | P.PN ---
Subjective Progress Note Date: 04/25/17 Principal diagnosis: Acute hypoxic respiratory failure secondary to acute systolic congestive heart failure, and bilateral staph aureus pneumonia. This is a very pleasant 86-year-old gentleman who follows with Dr. Auguste as his primary care physician. He has a history of coronary artery disease with previous coronary artery bypass grafting 4 in 2006, permanent pacemaker implantation, diabetes mellitus, obstructive sleep apnea not currently on CPAP, hypertension, hyperlipidemia. He presented here to the emergency room early this morning with complaints of increasing shortness of breath, cough and congestion. He also had increased lower extremity edema. Positive orthopnea. Chest x-ray reveals diffuse airspace disease with bilateral infusion and acute pulmonary edema. He is currently on BiPAP 10/5 and 60% FiO2. He has been initiated on Lasix 40 mg IV push every 8 hours. White count 26.3. Hemoglobin 14.2. INR 1.4. Creatinine 1.14. ProBNP 7020. Troponin 0.046. Influenza screen is negative. The patient is seen again today 04/20/2017 in follow-up in the intensive care unit. He remains intubated and on the mechanical ventilator. Current settings assist control of 28, tidal volume 450, FiO2 30% and a PEEP of 5. Morning blood gases reveal a P O2 of 94, pCO2 38, pH 7.41. The patient was given a daily interruption of sedation and unfortunately continues to have episodes of tachycardia, tachypnea and restlessness. He is alert while off sedation however and does follow commands. He is currently back on propofol at 30 mcg/kg /m. 0.9 normal saline at KVO, being nourished with [place] HP 50 mL per hour which is his goal. His microbiology of the sputum is positive for Staphylococcus aureus pneumonia. Blood cultures revealing no growth. White count 11.9. Hemoglobin 11.6. BUN 80, creatinine 1.20. He is currently hypertensive. Afebrile. Tachypneic. Chest x-ray continues to show evidence of multilobar pneumonia suspect adult respiratory distress syndrome and underlying pulmonary edema. Patient was reevaluated today on 04/21/2017, patient remains on mechanical ventilation, his ventilator settings were adjusted, he is now on assist control rate of 24, tidal volume remains at 450, FiO2 is 30%, and PEEP is still at 5. His peak airway pressure is in the low 20s, plateau pressure is about 15. I: E ratio is 1:2.0. ABG showed a pO2 of 84 pCO2 of 39 pH of 7.43. CBC was noted to be relatively normal. Renal profile showed elevated BUN of 85 creatinine of 1, however his chest x-ray has worsened significantly since the Lasix was placed on hold. I recommended restarting the Lasix today at 40 mg IV push every 8 hours. His screening for C. difficile is negative. His meds were all reviewed, patient remains on antibiotics in the form of vancomycin and Merrem Patient was reevaluated today on 04/22/2017, remains on mechanical ventilation, his ventilator settings are unchanged from yesterday. Patient remains on a relatively low tidal volume, rate of 20, flow rate is 85, FiO2 at 30%. ABG showed a pO2 of 84 pCO2 of 39 pH of 7.45. Chest x-ray is showing slight improvement in the interstitial edema. Patient was placed on diuretics again yesterday. And he is presently about 2 L negative balance. Electrolytes showed hyponatremia with a sodium of 149, BUN is 71 creatinine is 0.90. Bicarb is 30. WBC count is 11.6 hemoglobin is 12. Chest x-ray again is consistent with pulmonary edema, and underlying pneumonia is strongly suspected. His medications were all reviewed, patient remains on Eliquis, Merrem, and vancomycin. However considering the final sputum culture is showing MSSA, I will go ahead and discontinue Merrem and vancomycin, will treat mostly with Zosyn. Reevaluated today on 04/23/2017, patient remains on mechanical ventilations, FiO2 is 35% today, flow rates were cut down to 70, tidal volume remains the same , and the rate is 20. ABG showed a pO2 of 96 pCO2 of 47 pH of 7.41. Electrolytes continued to show hypernatremia which I will correct with free water flushes via nasogastric tube. Renal profile is about the same actually improved a bit with a BUN of 69 creatinine is 1.0. Chest x-ray is showing slight improvement in the pulmonary edema bilaterally. The more so on the left side significantly improved. Patient continues to have significant infiltrate involving the right lung, and I believe that his pneumonia secondary to MSSA. Patient is yet to have sedation interruption today, and assessment of mental status, and possibly assess for a short weaning trial if possible depending on his mental status. Yesterday that could not be accomplished because the patient became extremely agitated tachypneic and tachycardic. Patient was reevaluated today on 04/24/2017, remains on mechanical ventilation, FiO2 remains the same, assist control rate was cut down to 18, ABG showed a pO2 of 93 pCO2 of 48 pH of 7.43. Sodium remains a bit high in spite of free water flushes via nasogastric tube. Renal profile is basically about the same BUN is 68 creatinine is 1.10. CBC is relatively normal. Chest x-ray is showing slight improvement, patient remains hemodynamically stable, he is off propofol for the last 24 hours, and not showing significant mental improvement to address weaning patient does open his eyes, but does not follow any other instructions, and does not seem to be focusing. Hence we will keep propofol on hold, and we'll try to cut down on narcotics as much as possible. We will still plan to consider weaning trials once the patient is more awake. All his labs were reviewed chest x-ray was reviewed patient remains on nutritional support/enteral feeding. Reevaluated today on 04/25/2017, remains on mechanical ventilation, same ventilator settings, patient has a very poor mental status, opens eyes, but does not follow any instructions, and does not focus. He also has a weak gag reflex, and I had a feeling if extubated the patient will drop with secretions and he will not do well. Hence I have consulted Dr. Kulkarni for tracheostomy and PEG tube placement. Hoping this will be done in the next [address] Grossman discussed this with his family and the plan was to delay this until this week. So far I have not seen any significant clinical improvement to expect that the patient can be weaned and extubated successfully. Hence tracheostomy and PEG tube placement would be the best option and then we can consider sending the patient to select care specialty for long-term care. ABG today showed a pO2 of 110 pCO2 of 43 pH of 7.47. Rest of the labs were reviewed and they seem to be unremarkable, sodium remains high and I plan to increase the fluid boluses via nasogastric tube. Objective - Vital Signs Vital signs: Vital Signs Temp 97.6 F 04/25/17 12:00 Pulse 49 L 04/25/17 14:00 Resp 24 04/25/17 14:00 BP 84/42 04/25/17 14:00 Pulse Ox 100 04/25/17 14:00 Intake & Output 04/24/17 04/25/17 04/25/17 18:59 06:59 18:59 Intake Total 1585.5 1093 658 Output Total 1175 1435 815 Balance 410.5 -342 -157 Weight 101.1 kg 101.1 kg Intake: IV 253 253 138 0.9 220 220 120 0.9 for CVP 33 33 18 Intake, IV Titration 62.5 50 Amount Piperacillin-Tazobactam 3 62.5 50 .375 gm In Dextrose/Water 1 50ml.bag @ 12.5 mls/hr IVPB Q8H [facility] Rx#: [id number] Tube Feeding 550 750 410 Other 720 90 60 Output: Urine 1175 1435 815 Other: Voiding Method Indwelling Catheter Indwelling Catheter Indwelling Catheter ABP, PAP, CO, CI - Last Documented Arterial Blood Pressure 85/79 - Exam GENERAL EXAM: Sedated, intubated. comfortable in no apparent distress. HEAD: Normocephalic. EYES: PERRLA, EOMI NOSE: Clear with pink turbinates. THROAT: Oral endotracheal and nasogastric tubes remain in place. Poor gag reflex. NECK: No masses, no JVD. CHEST: No chest wall deformity. LUNGS: Equal air entry with crackles in the bilateral posterior bases. No rhonchi, no wheezes. CVS: S1 and S2 normal with no audible murmur, irregular rhythm. ABDOMEN: No hepatosplenomegaly, normal bowel sounds, no guarding or rigidity. SPINE: No scoliosis or deformity SKIN: No rashes CENTRAL NERVOUS SYSTEM: Patient opens eyes only, does not focus, does not follow any instructions, EXTREMITIES: There is trace of bipedal edema. No clubbing, no cyanosis. Peripheral pulses are intact. - Labs CBC & Chem 7: 04/25/17 04:50 04/25/17 04:50 Labs: Abnormal Lab Results - Last 24 Hours (Table) 04/24/17 04/24/17 04/25/17 Range/Units 18:30 23:24 04:50 WBC 12.1 H (3.8-10.6) k/uL Hgb 11.7 L (13.0-17.5) gm/dL Hct 38.7 L (39.0-53.0) % MCHC 30.2 L (31.0-37.0) g/dL Neutrophils # 9.1 H (1.3-7.7) k/uL ABG pH (7.35-7.45) ABG pO2 (83-108) mmHg ABG HCO3 (21-25) mmol/L ABG Total CO2 (19-24) mmol/L ABG O2 Saturation (94-97) % Sodium (137-145) mmol/L Chloride (98-107) mmol/L Carbon Dioxide (22-30) mmol/L BUN (9-20) mg/dL Glucose (74-99) mg/dL POC Glucose (mg/dL) 182 H 159 H (75-99) mg/dL 04/25/17 04/25/17 04/25/17 Range/Units 04:50 05:07 08:02 WBC (3.8-10.6) k/uL Hgb (13.0-17.5) gm/dL Hct (39.0-53.0) % MCHC (31.0-37.0) g/dL Neutrophils # (1.3-7.7) k/uL ABG pH 7.47 H (7.35-7.45) ABG pO2 110 H (83-108) mmHg ABG HCO3 31 H (21-25) mmol/L ABG Total CO2 33 H (19-24) mmol/L ABG O2 Saturation 99.2 H (94-97) % Sodium 151 H (137-145) mmol/L Chloride 109 H (98-107) mmol/L Carbon Dioxide 34 H (22-30) mmol/L BUN 72 H (9-20) mg/dL Glucose 161 H (74-99) mg/dL POC Glucose (mg/dL) 146 H (75-99) mg/dL 04/25/17 Range/Units 11:46 WBC (3.8-10.6) k/uL Hgb (13.0-17.5) gm/dL Hct (39.0-53.0) % MCHC (31.0-37.0) g/dL Neutrophils # (1.3-7.7) k/uL ABG pH (7.35-7.45) ABG pO2 (83-108) mmHg ABG HCO3 (21-25) mmol/L ABG Total CO2 (19-24) mmol/L ABG O2 Saturation (94-97) % Sodium (137-145) mmol/L Chloride (98-107) mmol/L Carbon Dioxide (22-30) mmol/L BUN (9-20) mg/dL Glucose (74-99) mg/dL POC Glucose (mg/dL) 148 H (75-99) mg/dL Assessment and Plan Assessment: 1 Acute hypoxic respiratory failure secondary to an acute exacerbation of systolic congestive heart failure as well as an acute Staphylococcus aureus pneumonia. Subsequent deterioration requiring intubation and mechanical ventilatory support. Chest x-ray continues to show evidence of multilobar pneumonia, fluid volume overload. Remains on diuretics. Patient is presently on Zosyn #2 Leukocytosis. Sputum now positive for Staphylococcus aureus. Methicillin sensitive staph aureus. #3 Mild troponin leak. Suspect demand ischemia with myocardial infarction type 2 secondary to acute hypoxic respiratory failure. #4 Coronary artery disease with previous coronary artery bypass grafting. #5 Mildly impaired left ventricular systolic function with ejection fraction 45- 50%. #6 Atrial fibrillation, status post permanent pacemaker implantation in 2013. Anticoagulated with Eliquis. However I placed this on hold for now since we may consider tracheostomy and PEG tube placement #7 Diabetes mellitus, type II #8 Hypertension. #9 Hyperlipidemia. #10 Coronary artery disease with previous coronary artery bypass grafting 4 in 2006. Cardiac catheterization in 2008 treated medically. #11 Acute renal failure, will cut down on diuresis slightly. Recommendation: Continue mechanical ventilation, continue antibiotics, Zosyn, continue bronchodilators, continue to hold sedation continue to assess mental status on a regular basis daily, and in the meantime I will consult Dr. Kulkarni for possible trach and PEG in the next 24-48 hours. Critical care time is 34 minutes. Time with Patient: Greater than 30
[2017-04-25 18:20] LABS: Glucose,Whole Blood 138 mg/dL (75-99)
--- NOTE | 2017-04-25 21:02 | PN ---
PROGRESS NOTE DATE OF SERVICE: 04/25/2017 Patient remains in ICU, remains on mechanical ventilation, ventilator-dependent, being followed by the top lift and automatic window repairer. Patient does open eyes but does not follow any commands. Patient has a weak gag reflex. Dr. Kulkarni has been consulted for possible tracheostomy and PEG tube placement. Family has been on board with that so far. VITAL SIGNS: Temperature 97.6, pulse 49, respiration 24, blood pressure 84/42, oxygen saturation 100%. GENERAL EXAMINATION: Patient is sedated. Opens eyes. Does not follow commands. HEENT: Atraumatic, normocephalic. Pupils equal and reactive to light but sluggish to respond. Extraocular movements are intact. Buccal mucosa is fair. Neck is supple. No goiter or lymphadenopathy. JVD is negative. No carotid bruit heard. LUNGS: Positive bibasilar crackles. No rales or rhonchi. Heart is irregularly irregular. Abdomen is soft, nontender, nondistended. Bowel sounds positive. EXTREMITIES: No edema, clubbing, cyanosis. SKIN: No rashes or pigmentation. CENTRAL NERVOUS SYSTEM: Patient opens eyes but does not follow commands. Moves all 4 extremities. LABS: CBC: White blood count of 12.1, hemoglobin 11.7, hematocrit 38.7, platelet count of 242. Chemical profile: Sodium 158, potassium 3.8, chloride 109, bicarb 34, BUN 72, creatinine 1.2, glucose 161. ASSESSMENT: 1. Acute hypoxemic respiratory failure. 2. Acute exacerbation, systolic congestive heart failure. 3. Acute Staphylococcus aureus pneumonia. 4. Mild troponin leak, possibly type 2 myocardial infarction. 5. Coronary artery disease with history of coronary artery bypass grafting. 6. Atrial fibrillation. Ventricular response is controlled. Patient is on Eliquis. 7. Diabetes mellitus, type 2. 8. Hypertension. 9. Hyperlipidemia. 10.Acute renal failure. Patient is on diuresis. PLAN: To proceed with tracheostomy and PEG tube placement. Dr. Kulkarni is consulted and we await further recommendation. Plan is to possibly get PEG and tracheostomy in probably within a day. The patient's anticoagulation therapy has been put on hold for possible procedure and surgery. Patient will be continued on mechanical ventilation. IV Zosyn and bronchodilators are going to be continued. Patient's sedation is put on hold to assess mental status daily. Further recommendations after PEG and tracheostomy are placed. MMODL / IJN: [id number] /
[2017-04-25 23:25] LABS: Glucose,Whole Blood 130 mg/dL (75-99)
[2017-04-26] MEDS: HYDROmorphone 0.5 MG/0.5 ML SYRINGE IVP PRN ×8 (01:29→23:13)
[2017-04-26] MEDS: PIPERACILLIN-TAZOBACTAM 3.375 GM in DEXTROSE/WATER 1 50ML.BAG IVPB SCH ×3 (03:13→19:44)
[2017-04-26] MEDS: IPRATROPIUM-ALBUTEROL 3 ML NEB INHALATION SCH ×6 (03:38→23:36)
[2017-04-26 05:21] LABS: Basophils # (A) 0.1 k/uL (0-0.2); Basophils % (A) 1 %; Eosinophils # (A) 0.6 k/uL (0-0.7); Eosinophils % (A) 6 %; HCT 37.4 % (39.0-53.0); HGB 11.1 gm/dL (13.0-17.5); Hypochromasia Marked; Lymphocytes # (A) 1.4 k/uL (1.0-4.8); Lymphocytes % (A) 13 %; MCH 26.6 pg (25.0-35.0); MCHC 29.6 g/dL (31.0-37.0); MCV 90.2 fL (80.0-100.0); Mean Platelet Volume 7.9; Monocytes # (A) 0.5 k/uL (0-1.0); Monocytes % (A) 5 %; Neutrophils # (A) 7.9 k/uL (1.3-7.7); Neutrophils % (A) 74 %; Platelet Count 219 k/uL (150-450); RBC 4.15 m/uL (4.30-5.90); RDW 13.3 % (11.5-15.5); WBC 10.7 k/uL (3.8-10.6)
[2017-04-26 05:33] LABS: Anion Gap 10 mmol/L; Blood Urea Nitrogen 74 mg/dL (9-20); Calcium 8.3 mg/dL (8.4-10.2); Carbon Dioxide 32 mmol/L (22-30); Chloride 110 mmol/L (98-107); Glucose 159 mg/dL (74-99); Phosphorus 4.3 mg/dL (2.5-4.5); Potassium 3.5 mmol/L (3.5-5.1); Sodium 152 mmol/L (137-145)
[2017-04-26] MEDS ORDERED: Potassium Replacement Protocol 1 EACH MISC MISCELLANE PRN (05:45)
[2017-04-26] MEDS: INSULIN ASPART 100 UNIT/ML 1 ML 10 ML VIAL SQ SCH ×4 (05:58→23:08)
[2017-04-26] MEDS: POTASSIUM BICARBONATE/CIT AC 20 MEQ TABLET.EFF NG-TUBE SCH ×2 (06:38→10:31)
--- NOTE | 2017-04-26 08:11 | XR ---
EXAMINATION TYPE: XR chest 1V portable DATE OF EXAM: 04/26/2017 COMPARISON: Prior chest x-ray 04/25/2017 HISTORY: Intubated TECHNIQUE: Single frontal view of the chest is obtained. FINDINGS: Endotracheal tube, NG tube, left jugular central venous catheter and pacemaker are all aga in noted and stable. Patient is post median sternotomy. Mixed interstitial and airspace pattern prese nt within the lungs. Heart size is stable. IMPRESSION: Correlate for ARDS, congestive heart failure pulmonary edema, pneumonia, follow-up recom mended
[2017-04-26 08:17] LABS: ABG Base Excess 7.6 mmol/L; ABG HCO3 32 mmol/L (21-25); ABG Oxygen Saturation 97.8 % (94-97); ABG PCO2 52 mmHg (35-45); ABG PO2 109 mmHg (83-108); ABG TCO2 34 mmol/L (19-24)
[2017-04-26] MEDS: FUROSEMIDE 10 MG/ML 4 ML VIAL IV SCH ×2 (10:28→20:06)
[2017-04-26] MEDS: CHLORHEXIDINE GLUCONATE 15 ML CUP MUCOUS MEM SCH ×2 (10:29→20:06)
[2017-04-26] MEDS: metFORMIN 500 MG TAB PO SCH (10:29)
[2017-04-26] MEDS: METOPROLOL TARTRATE 25 MG TAB PO SCH ×2 (10:29→20:07)
[2017-04-26] MEDS: PANTOPRAZOLE 40 MG/10 ML VIAL IVP SCH (10:30)
[2017-04-26] MEDS: LISINOPRIL 2.5 MG TAB PO SCH (10:31)
[2017-04-26] MEDS: ATORVASTATIN 20 MG TAB PO SCH (10:31)
--- NOTE | 2017-04-26 11:00 | P.PN ---
Subjective Progress Note Date: 04/26/17 Principal diagnosis: Acute hypoxic respiratory failure secondary to acute systolic congestive heart failure, and bilateral staph aureus pneumonia. This is a very pleasant 86-year-old gentleman who follows with Dr. Auguste as his primary care physician. He has a history of coronary artery disease with previous coronary artery bypass grafting 4 in 2006, permanent pacemaker implantation, diabetes mellitus, obstructive sleep apnea not currently on CPAP, hypertension, hyperlipidemia. He presented here to the emergency room early this morning with complaints of increasing shortness of breath, cough and congestion. He also had increased lower extremity edema. Positive orthopnea. Chest x-ray reveals diffuse airspace disease with bilateral infusion and acute pulmonary edema. He is currently on BiPAP 10/5 and 60% FiO2. He has been initiated on Lasix 40 mg IV push every 8 hours. White count 26.3. Hemoglobin 14.2. INR 1.4. Creatinine 1.14. ProBNP 7020. Troponin 0.046. Influenza screen is negative. The patient is seen again today 04/20/2017 in follow-up in the intensive care unit. He remains intubated and on the mechanical ventilator. Current settings assist control of 28, tidal volume 450, FiO2 30% and a PEEP of 5. Morning blood gases reveal a P O2 of 94, pCO2 38, pH 7.41. The patient was given a daily interruption of sedation and unfortunately continues to have episodes of tachycardia, tachypnea and restlessness. He is alert while off sedation however and does follow commands. He is currently back on propofol at 30 mcg/kg /m. 0.9 normal saline at KVO, being nourished with [place] HP 50 mL per hour which is his goal. His microbiology of the sputum is positive for Staphylococcus aureus pneumonia. Blood cultures revealing no growth. White count 11.9. Hemoglobin 11.6. BUN 80, creatinine 1.20. He is currently hypertensive. Afebrile. Tachypneic. Chest x-ray continues to show evidence of multilobar pneumonia suspect adult respiratory distress syndrome and underlying pulmonary edema. Patient was reevaluated today on 04/21/2017, patient remains on mechanical ventilation, his ventilator settings were adjusted, he is now on assist control rate of 24, tidal volume remains at 450, FiO2 is 30%, and PEEP is still at 5. His peak airway pressure is in the low 20s, plateau pressure is about 15. I: E ratio is 1:2.0. ABG showed a pO2 of 84 pCO2 of 39 pH of 7.43. CBC was noted to be relatively normal. Renal profile showed elevated BUN of 85 creatinine of 1, however his chest x-ray has worsened significantly since the Lasix was placed on hold. I recommended restarting the Lasix today at 40 mg IV push every 8 hours. His screening for C. difficile is negative. His meds were all reviewed, patient remains on antibiotics in the form of vancomycin and Merrem Patient was reevaluated today on 04/22/2017, remains on mechanical ventilation, his ventilator settings are unchanged from yesterday. Patient remains on a relatively low tidal volume, rate of 20, flow rate is 85, FiO2 at 30%. ABG showed a pO2 of 84 pCO2 of 39 pH of 7.45. Chest x-ray is showing slight improvement in the interstitial edema. Patient was placed on diuretics again yesterday. And he is presently about 2 L negative balance. Electrolytes showed hyponatremia with a sodium of 149, BUN is 71 creatinine is 0.90. Bicarb is 30. WBC count is 11.6 hemoglobin is 12. Chest x-ray again is consistent with pulmonary edema, and underlying pneumonia is strongly suspected. His medications were all reviewed, patient remains on Eliquis, Merrem, and vancomycin. However considering the final sputum culture is showing MSSA, I will go ahead and discontinue Merrem and vancomycin, will treat mostly with Zosyn. Reevaluated today on 04/23/2017, patient remains on mechanical ventilations, FiO2 is 35% today, flow rates were cut down to 70, tidal volume remains the same , and the rate is 20. ABG showed a pO2 of 96 pCO2 of 47 pH of 7.41. Electrolytes continued to show hypernatremia which I will correct with free water flushes via nasogastric tube. Renal profile is about the same actually improved a bit with a BUN of 69 creatinine is 1.0. Chest x-ray is showing slight improvement in the pulmonary edema bilaterally. The more so on the left side significantly improved. Patient continues to have significant infiltrate involving the right lung, and I believe that his pneumonia secondary to MSSA. Patient is yet to have sedation interruption today, and assessment of mental status, and possibly assess for a short weaning trial if possible depending on his mental status. Yesterday that could not be accomplished because the patient became extremely agitated tachypneic and tachycardic. Patient was reevaluated today on 04/24/2017, remains on mechanical ventilation, FiO2 remains the same, assist control rate was cut down to 18, ABG showed a pO2 of 93 pCO2 of 48 pH of 7.43. Sodium remains a bit high in spite of free water flushes via nasogastric tube. Renal profile is basically about the same BUN is 68 creatinine is 1.10. CBC is relatively normal. Chest x-ray is showing slight improvement, patient remains hemodynamically stable, he is off propofol for the last 24 hours, and not showing significant mental improvement to address weaning patient does open his eyes, but does not follow any other instructions, and does not seem to be focusing. Hence we will keep propofol on hold, and we'll try to cut down on narcotics as much as possible. We will still plan to consider weaning trials once the patient is more awake. All his labs were reviewed chest x-ray was reviewed patient remains on nutritional support/enteral feeding. Reevaluated today on 04/25/2017, remains on mechanical ventilation, same ventilator settings, patient has a very poor mental status, opens eyes, but does not follow any instructions, and does not focus. He also has a weak gag reflex, and I had a feeling if extubated the patient will drop with secretions and he will not do well. Hence I have consulted Dr. Kulkarni for tracheostomy and PEG tube placement. Hoping this will be done in the next [address] Grossman discussed this with his family and the plan was to delay this until this week. So far I have not seen any significant clinical improvement to expect that the patient can be weaned and extubated successfully. Hence tracheostomy and PEG tube placement would be the best option and then we can consider sending the patient to [facility] for long-term care. ABG today showed a pO2 of 110 pCO2 of 43 pH of 7.47. Rest of the labs were reviewed and they seem to be unremarkable, sodium remains high and I plan to increase the fluid boluses via nasogastric tube. Reevaluated today on 04/26/2017, remains on mechanical ventilation, same ventilator settings, unchanged, patient has been off propofol for the last 3 days almost, and so far his mental status remains extremely poor. Patient opens eyes, but does not focus, there is upward gaze deviation, and the patient does not seem to respond to any other stimuli, does not follow any instructions , hence I have recommended that we send the patient down for a CT of the brain today. Family is discussing with the surgeon that tracheostomy issues. And I will discuss with family members once they're available today his overall clinical condition, and they have to make a decision whether to proceed with tracheostomy or comfort care measures. According to the nursing staff, patient was very appropriate when he was admitted and this change in mental status is definitely new. No history of underlying dementia. Chest x-ray is about the same, not much change was noted on the chest x-ray. CBC was reviewed relatively normal hemoglobin is 11.1 basic metabolic profile continues to show elevated sodium, hence we'll change the main IV fluid to D5W. Cut down the dose of Lasix. Continue antibiotics for his MSSA pneumonia. Send more cultures of sputum to the LAD. Objective - Vital Signs Vital signs: Vital Signs Temp 98.9 F 04/26/17 08:00 Pulse 50 L 04/26/17 10:00 Resp 20 04/26/17 10:00 BP 130/58 04/26/17 10:00 Pulse Ox 100 04/26/17 10:00 Intake & Output 04/25/17 04/26/17 04/26/17 18:59 06:59 18:59 Intake Total 1316 1833 622 Output Total 1075 700 715 Balance 241 1133 -93 Weight 101.1 kg 98.6 kg 98.6 kg Intake: IV 276 253 92 0.9 240 220 80 0.9 for CVP 36 33 12 Intake, IV Titration 50 Amount Piperacillin-Tazobactam 3 50 .375 gm In Dextrose/Water 1 50ml.bag @ 12.5 mls/hr IVPB Q[facility]H [facility] Rx#: [id number] Tube Feeding 900 980 350 Other 90 600 180 Output: Urine 1075 700 615 Stool 100 Other: Voiding Method Indwelling Catheter Indwelling Catheter Indwelling Catheter # Bowel Movements 1 2 2 ABP, PAP, CO, CI - Last Documented Arterial Blood Pressure 85/79 - Exam GENERAL EXAM: Sedated, intubated. comfortable in no apparent distress. HEAD: Normocephalic. EYES: PERRLA, EOMI NOSE: Clear with pink turbinates. THROAT: Oral endotracheal and nasogastric tubes remain in place. Poor gag reflex. NECK: No masses, no JVD. CHEST: No chest wall deformity. LUNGS: Equal air entry with crackles in the bilateral posterior bases. No rhonchi, no wheezes. CVS: S1 and S2 normal with no audible murmur, irregular rhythm. ABDOMEN: No hepatosplenomegaly, normal bowel sounds, no guarding or rigidity. SPINE: No scoliosis or deformity SKIN: No rashes CENTRAL NERVOUS SYSTEM: Patient opens eyes only, does not focus, does not follow any instructions, EXTREMITIES: There is trace of bipedal edema. No clubbing, no cyanosis. Peripheral pulses are intact. - Labs CBC & Chem 7: 04/26/17 05:00 04/26/17 05:00 Labs: Abnormal Lab Results - Last 24 Hours (Table) 04/25/17 04/25/17 04/25/17 Range/Units 11:46 18:19 23:24 WBC (3.8-10.6) k/uL RBC (4.30-5.90) m/uL Hgb (13.0-17.5) gm/dL Hct (39.0-53.0) % MCHC (31.0-37.0) g/dL Neutrophils # (1.3-7.7) k/uL Sodium (137-145) mmol/L Chloride (98-107) mmol/L Carbon Dioxide (22-30) mmol/L BUN (9-20) mg/dL Glucose (74-99) mg/dL POC Glucose (mg/dL) 148 H 138 H 130 H (75-99) mg/dL Calcium (8.4-10.2) mg/dL 04/26/17 04/26/17 Range/Units 05:00 05:00 WBC 10.7 H (3.8-10.6) k/uL RBC 4.15 L (4.30-5.90) m/uL Hgb 11.1 L (13.0-17.5) gm/dL Hct 37.4 L (39.0-53.0) % MCHC 29.6 L (31.0-37.0) g/dL Neutrophils # 7.9 H (1.3-7.7) k/uL Sodium 152 H (137-145) mmol/L Chloride 110 H (98-107) mmol/L Carbon Dioxide 32 H (22-30) mmol/L BUN 74 H (9-20) mg/dL Glucose 159 H (74-99) mg/dL POC Glucose (mg/dL) (75-99) mg/dL Calcium 8.3 L (8.4-10.2) mg/dL Assessment and Plan Assessment: 1 Acute hypoxic respiratory failure secondary to an acute exacerbation of systolic congestive heart failure as well as an acute Staphylococcus aureus pneumonia. Subsequent deterioration requiring intubation and mechanical ventilatory support. Chest x-ray continues to show evidence of multilobar pneumonia, fluid volume overload. Remains on diuretics. Patient is presently on Zosyn #2 Leukocytosis. Sputum now positive for Staphylococcus aureus. Methicillin sensitive staph aureus. #3 Mild troponin leak. Suspect demand ischemia with myocardial infarction type 2 secondary to acute hypoxic respiratory failure. #4 Coronary artery disease with previous coronary artery bypass grafting. #5 Mildly impaired left ventricular systolic function with ejection fraction 45- 50%. #6 Atrial fibrillation, status post permanent pacemaker implantation in 2013. Anticoagulated with Eliquis. However I placed this on hold for now since we may consider tracheostomy and PEG tube placement #7 Diabetes mellitus, type II #8 Hypertension. #9 Hyperlipidemia. #10 Coronary artery disease with previous coronary artery bypass grafting 4 in 2006. Cardiac catheterization in 2008 treated medically. #11 Acute renal failure, will cut down on diuresis slightly. Recommendation: Continue mechanical ventilation, continue antibiotics, Zosyn, continue bronchodilators, continue to hold sedation continue to assess mental status . We will send the patient down for a CT of the brain today, and we'll discuss the findings with the family. We will discuss with the family today pro 's and con's of tracheostomy and the pros and cons of terminal weaning . Prognosis remains poor and guarded. Critical care time is 35 minutes. Time with Patient: Greater than 30
--- NOTE | 2017-04-26 11:31 | CT ---
EXAMINATION TYPE: CT brain wo con DATE OF EXAM: 04/26/2017 COMPARISON: NONE HISTORY: Patient poor historian. Altered mental status. CT DLP: 847.5 mGycm Automated exposure control for dose reduction was used. TECHNIQUE: CT scan of the head is performed without contrast. FINDINGS: There is no acute intracranial hemorrhage or midline shift identified. There is diffuse v entricular and sulcal prominence consistent with diffuse age-related cerebral atrophy. There is low- attenuation in the periventricular white matter consistent with chronic small vessel ischemic change. The globes are intact. Minimal mucosal thickening is seen in the ethmoid sinuses. Remaining paranas al sinuses and mastoid air cells are well aerated. Atherosclerosis is seen in the intracranial vascul ature. IMPRESSION: 1. No acute intracranial hemorrhage or midline shift. 2. Old lacunar injury of the right external capsule. 3. Diffuse age-related cerebral atrophy and chronic small vessel ischemic change.
[2017-04-26 11:52] LABS: Glucose,Whole Blood 126 mg/dL (75-99)
[2017-04-26] MEDS: DEXTROSE 5% IN WATER 1,000 ML IV SCH (11:52)
[2017-04-26 12:00] LABS: Glucose,Whole Blood 139 mg/dL (75-99)
--- NOTE | 2017-04-26 18:30 | PN ---
PROGRESS NOTE I am covering for Dr. Auguste. DATE OF SERVICE: 04/26/2017 This 86-year-old gentleman who was admitted with CHF, acute exacerbation, as well as Staph aureus pneumonia, also had acute respiratory failure. Patient has been mechanically intubated for a prolonged intubation. Dr. Schulz was recommending a PEG tube as well as tracheostomy, which the family is not considering at this point. The patient is mechanically ventilated and sedated and the vent settings are tidal volume 450 and PEEP of 5 and FiO2 35%. Patient is being closely monitored. Past medical history reviewed. Review of systems could not be taken. MEDICATIONS: The current medications are reviewed and include: 1. DuoNeb q.i.d. and p.r.n. 2. Lipitor 20 mg daily. 3. Peridex. 4. Dextrose. 5. Lasix 40 mg IV b.i.d. 6. Dilaudid 1 mg b.i.d. 7. NovoLog. 8. Zestril 2.5 mg. 9. Lopressor 25 mg b.i.d. 10.Replacement protocol. 11.Zosyn 3.375 IV q.6. PHYSICAL EXAMINATION: Pulse is 49, blood pressure 110/50, respiration 17, temperature normal, pulse ox 98% on mechanical ventilation. Vent settings are noted; FiO2 of 35%, as mentioned earlier. NECK: No jugular venous distention. No carotid bruit. No lymph node enlargement. CARDIOVASCULAR SYSTEM: S1, S2 muffled. No S3. No S4. RESPIRATORY SYSTEM: Breath sounds diminished at the bases. A few scattered rhonchi and crackles. ABDOMEN: Soft, obese, nontender. No mass palpable. LEGS: No edema. No swelling. NERVOUS SYSTEM: Patient is sedated. LYMPHATICS: No lymph node palpable in neck, axillae or groin. LABS: WBC 10.7. Hemoglobin 11.1. Sodium 152. ASSESSMENT: 1. Congestive heart failure, acute exacerbation, with acute hypoxic respiratory failure, on mechanical ventilation. 2. Acute staphylococcus pneumonia. 3. Mild troponin leak, possibly type 2 myocardial infarction. 4. Coronary artery disease, coronary artery bypass grafting. 5. Atrial fibrillation. 6. Diabetes mellitus, type 2. 7. Hypertension. 8. Hyperlipidemia. 9. Acute renal failure. 10.FULL CODE. RECOMMENDATIONS AND DISCUSSION: In this 86-year-old gentleman who presented with multiple complex medical issues, we will monitor the patient closely, continue the current medications, continue symptomatic treatment, continue the mechanical ventilation. Continue with diuretics. Continue the bronchodilators. Continue with broad-spectrum IV antibiotics. Family to decide about the tracheostomy and PEG tube. Otherwise continue to monitor and closely follow with Pulmonary. Dr. Auguste will follow tomorrow. CEFERINO / MAYNORN: [id number] /
[2017-04-26 19:02] LABS: Glucose,Whole Blood 210 mg/dL (75-99)
[2017-04-26 23:09] LABS: Glucose,Whole Blood 131 mg/dL (75-99)
[2017-04-27] MEDS: DEXTROSE 5% IN WATER 1,000 ML IV SCH (00:18)
[2017-04-27] MEDS: HYDROmorphone 0.5 MG/0.5 ML SYRINGE IVP PRN ×4 (01:47→10:33)
[2017-04-27] MEDS: IPRATROPIUM-ALBUTEROL 3 ML NEB INHALATION SCH ×3 (02:46→11:33)
[2017-04-27] MEDS: PIPERACILLIN-TAZOBACTAM 3.375 GM in DEXTROSE/WATER 1 50ML.BAG IVPB SCH ×2 (02:59→12:32)
[2017-04-27 04:33] LABS: Basophils # (A) 0.1 k/uL (0-0.2); Basophils % (A) 1 %; Eosinophils # (A) 0.8 k/uL (0-0.7); Eosinophils % (A) 8 %; HGB 10.2 gm/dL (13.0-17.5); Hypochromasia Marked; Lymphocytes # (A) 1.3 k/uL (1.0-4.8); Lymphocytes % (A) 12 %; MCH 26.7 pg (25.0-35.0); MCHC 29.1 g/dL (31.0-37.0); MCV 91.8 fL (80.0-100.0); Mean Platelet Volume 7.9; Monocytes # (A) 0.6 k/uL (0-1.0); Monocytes % (A) 6 %; Neutrophils # (A) 7.2 k/uL (1.3-7.7); Neutrophils % (A) 72 %; Platelet Count 218 k/uL (150-450); RBC 3.81 m/uL (4.30-5.90); RDW 13.6 % (11.5-15.5); WBC 10.1 k/uL (3.8-10.6)
[2017-04-27 04:43] LABS: Anion Gap 7 mmol/L; Blood Urea Nitrogen 65 mg/dL (9-20); Calcium 8.1 mg/dL (8.4-10.2); Carbon Dioxide 36 mmol/L (22-30); Chloride 103 mmol/L (98-107); Glucose 183 mg/dL (74-99); Magnesium 1.9 mg/dL (1.6-2.3); Phosphorus 3.5 mg/dL (2.5-4.5); Potassium 3.4 mmol/L (3.5-5.1); Sodium 146 mmol/L (137-145)
[2017-04-27] MEDS ORDERED: Magnesium Replacement Protocol 1 EACH MISC MISCELLANE PRN (04:47)
[2017-04-27] MEDS ORDERED: Potassium Replacement Protocol 1 EACH MISC MISCELLANE PRN (04:47)
[2017-04-27] MEDS: INSULIN ASPART 100 UNIT/ML 1 ML 10 ML VIAL SQ SCH ×2 (05:03→12:32)
[2017-04-27] MEDS: MAGNESIUM SULFATE-D5W PMX 1 GM in DEXTROSE/WATER 1 100ML.BAG IVPB SCH ×2 (05:11→06:24)
[2017-04-27] MEDS: POTASSIUM BICARBONATE/CIT AC 20 MEQ TABLET.EFF NG-TUBE SCH ×2 (05:12→06:24)
[2017-04-27 07:45] LABS: ABG Base Excess 10.4 mmol/L; ABG HCO3 35 mmol/L (21-25); ABG Oxygen Saturation 99.2 % (94-97); ABG PCO2 52 mmHg (35-45); ABG PH 7.44 (7.35-7.45); ABG PO2 116 mmHg (83-108); ABG TCO2 36 mmol/L (19-24)
--- NOTE | 2017-04-27 08:05 | XR ---
EXAMINATION TYPE: XR chest 1V DATE OF EXAM: 04/27/2017 COMPARISON: Prior chest x-ray 04/26/2017 HISTORY: Intubated TECHNIQUE: Single frontal view of the chest is obtained. FINDINGS: Endotracheal tube and NG tube are overlying appropriate positions, left jugular central ve nous catheter is stable. Patient is post median sternotomy. Pacemaker is unchanged. Bilateral interst itial airspace pattern again noted. IMPRESSION: Stable exam, correlate for ARDS, pneumonia, congestive heart failure.
[2017-04-27] MEDS: PANTOPRAZOLE 40 MG/10 ML VIAL IVP SCH (08:35)
[2017-04-27] MEDS: FUROSEMIDE 10 MG/ML 4 ML VIAL IV SCH (08:35)
[2017-04-27] MEDS: CHLORHEXIDINE GLUCONATE 15 ML CUP MUCOUS MEM SCH (08:35)
[2017-04-27] MEDS: ATORVASTATIN 20 MG TAB PO SCH (08:35)
--- NOTE | 2017-04-27 11:32 | P.PN ---
Subjective Progress Note Date: 04/27/17 Principal diagnosis: Acute hypoxic respiratory failure secondary to acute systolic congestive heart failure, and bilateral staph aureus pneumonia. This is a very pleasant 86-year-old gentleman who follows with Dr. Auguste as his primary care physician. He has a history of coronary artery disease with previous coronary artery bypass grafting 4 in 2006, permanent pacemaker implantation, diabetes mellitus, obstructive sleep apnea not currently on CPAP, hypertension, hyperlipidemia. He presented here to the emergency room early this morning with complaints of increasing shortness of breath, cough and congestion. He also had increased lower extremity edema. Positive orthopnea. Chest x-ray reveals diffuse airspace disease with bilateral infusion and acute pulmonary edema. He is currently on BiPAP 10/5 and 60% FiO2. He has been initiated on Lasix 40 mg IV push every 8 hours. White count 26.3. Hemoglobin 14.2. INR 1.4. Creatinine 1.14. ProBNP 7020. Troponin 0.046. Influenza screen is negative. The patient is seen again today 04/20/2017 in follow-up in the intensive care unit. He remains intubated and on the mechanical ventilator. Current settings assist control of 28, tidal volume 450, FiO2 30% and a PEEP of 5. Morning blood gases reveal a P O2 of 94, pCO2 38, pH 7.41. The patient was given a daily interruption of sedation and unfortunately continues to have episodes of tachycardia, tachypnea and restlessness. He is alert while off sedation however and does follow commands. He is currently back on propofol at 30 mcg/kg /m. 0.9 normal saline at KVO, being nourished with [place] HP 50 mL per hour which is his goal. His microbiology of the sputum is positive for Staphylococcus aureus pneumonia. Blood cultures revealing no growth. White count 11.9. Hemoglobin 11.6. BUN 80, creatinine 1.20. He is currently hypertensive. Afebrile. Tachypneic. Chest x-ray continues to show evidence of multilobar pneumonia suspect adult respiratory distress syndrome and underlying pulmonary edema. Patient was reevaluated today on 04/21/2017, patient remains on mechanical ventilation, his ventilator settings were adjusted, he is now on assist control rate of 24, tidal volume remains at 450, FiO2 is 30%, and PEEP is still at 5. His peak airway pressure is in the low 20s, plateau pressure is about 15. I: E ratio is 1:2.0. ABG showed a pO2 of 84 pCO2 of 39 pH of 7.43. CBC was noted to be relatively normal. Renal profile showed elevated BUN of 85 creatinine of 1, however his chest x-ray has worsened significantly since the Lasix was placed on hold. I recommended restarting the Lasix today at 40 mg IV push every 8 hours. His screening for C. difficile is negative. His meds were all reviewed, patient remains on antibiotics in the form of vancomycin and Merrem Patient was reevaluated today on 04/22/2017, remains on mechanical ventilation, his ventilator settings are unchanged from yesterday. Patient remains on a relatively low tidal volume, rate of 20, flow rate is 85, FiO2 at 30%. ABG showed a pO2 of 84 pCO2 of 39 pH of 7.45. Chest x-ray is showing slight improvement in the interstitial edema. Patient was placed on diuretics again yesterday. And he is presently about 2 L negative balance. Electrolytes showed hyponatremia with a sodium of 149, BUN is 71 creatinine is 0.90. Bicarb is 30. WBC count is 11.6 hemoglobin is 12. Chest x-ray again is consistent with pulmonary edema, and underlying pneumonia is strongly suspected. His medications were all reviewed, patient remains on Eliquis, Merrem, and vancomycin. However considering the final sputum culture is showing MSSA, I will go ahead and discontinue Merrem and vancomycin, will treat mostly with Zosyn. Reevaluated today on 04/23/2017, patient remains on mechanical ventilations, FiO2 is 35% today, flow rates were cut down to 70, tidal volume remains the same , and the rate is 20. ABG showed a pO2 of 96 pCO2 of 47 pH of 7.41. Electrolytes continued to show hypernatremia which I will correct with free water flushes via nasogastric tube. Renal profile is about the same actually improved a bit with a BUN of 69 creatinine is 1.0. Chest x-ray is showing slight improvement in the pulmonary edema bilaterally. The more so on the left side significantly improved. Patient continues to have significant infiltrate involving the right lung, and I believe that his pneumonia secondary to MSSA. Patient is yet to have sedation interruption today, and assessment of mental status, and possibly assess for a short weaning trial if possible depending on his mental status. Yesterday that could not be accomplished because the patient became extremely agitated tachypneic and tachycardic. Patient was reevaluated today on 04/24/2017, remains on mechanical ventilation, FiO2 remains the same, assist control rate was cut down to 18, ABG showed a pO2 of 93 pCO2 of 48 pH of 7.43. Sodium remains a bit high in spite of free water flushes via nasogastric tube. Renal profile is basically about the same BUN is 68 creatinine is 1.10. CBC is relatively normal. Chest x-ray is showing slight improvement, patient remains hemodynamically stable, he is off propofol for the last 24 hours, and not showing significant mental improvement to address weaning patient does open his eyes, but does not follow any other instructions, and does not seem to be focusing. Hence we will keep propofol on hold, and we'll try to cut down on narcotics as much as possible. We will still plan to consider weaning trials once the patient is more awake. All his labs were reviewed chest x-ray was reviewed patient remains on nutritional support/enteral feeding. Reevaluated today on 04/25/2017, remains on mechanical ventilation, same ventilator settings, patient has a very poor mental status, opens eyes, but does not follow any instructions, and does not focus. He also has a weak gag reflex, and I had a feeling if extubated the patient will drop with secretions and he will not do well. Hence I have consulted Dr. Kulkarni for tracheostomy and PEG tube placement. Hoping this will be done in the next [address] Grossman discussed this with his family and the plan was to delay this until this week. So far I have not seen any significant clinical improvement to expect that the patient can be weaned and extubated successfully. Hence tracheostomy and PEG tube placement would be the best option and then we can consider sending the patient to [facility] for long-term care. ABG today showed a pO2 of 110 pCO2 of 43 pH of 7.47. Rest of the labs were reviewed and they seem to be unremarkable, sodium remains high and I plan to increase the fluid boluses via nasogastric tube. Reevaluated today on 04/26/2017, remains on mechanical ventilation, same ventilator settings, unchanged, patient has been off propofol for the last 3 days almost, and so far his mental status remains extremely poor. Patient opens eyes, but does not focus, there is upward gaze deviation, and the patient does not seem to respond to any other stimuli, does not follow any instructions , hence I have recommended that we send the patient down for a CT of the brain today. Family is discussing with the surgeon that tracheostomy issues. And I will discuss with family members once they're available today his overall clinical condition, and they have to make a decision whether to proceed with tracheostomy or comfort care measures. According to the nursing staff, patient was very appropriate when he was admitted and this change in mental status is definitely new. No history of underlying dementia. Chest x-ray is about the same, not much change was noted on the chest x-ray. CBC was reviewed relatively normal hemoglobin is 11.1 basic metabolic profile continues to show elevated sodium, hence we'll change the main IV fluid to D5W. Cut down the dose of Lasix. Continue antibiotics for his MSSA pneumonia. Send more cultures to the lab Reevaluated today on 04/27/2017, remains about the same, remains on mechanical ventilation, ventilator settings are basically the same. Patient remains off propofol, remains unresponsive, and does not seem to follow any instructions whatsoever. Patient opens eyes, moves his extremities on his own, but clearly not appropriate, and not comprehending of what's going on. Apparently his CODE STATUS has been changed yesterday to comfort care measures, however the family is planning to decide on extubation today around noontime. X-ray, labs, ABG, were all reviewed. And his condition was discussed with his daughter at bedside. Family is planning to have more family members come and see him, and we'll likely extubate the patient/terminally wean around noontime today. Objective - Vital Signs Vital signs: Vital Signs Temp 97.4 F L 04/27/17 04:00 Pulse 49 L 04/27/17 08:35 Resp 25 H 04/27/17 07:00 BP 150/54 04/27/17 07:00 Pulse Ox 99 04/27/17 07:00 Intake & Output 04/26/17 04/27/17 04/27/17 18:59 06:59 18:59 Intake Total 1722 2521 155 Output Total 1765 1225 100 Balance -43 1296 55 Weight 98.6 kg 99.8 kg Intake: IV 140 941 85 0.9 110 110 10 0.9 for CVP 30 6 Dextrose 5% in Water 1, 825 75 000 ml @ 75 mls/hr IV . [id number] [facility] Rx#:[id number] Intake, IV Titration 425 Amount Dextrose 5% in Water 1, 375 000 ml @ 75 mls/hr IV . [id number] [facility] Rx#:[id number] Piperacillin-Tazobactam 3 50 .375 gm In Dextrose/Water 1 50ml.bag @ 12.5 mls/hr IVPB Q8H [facility] Rx#: [id number] Tube Feeding 777 980 70 Other 380 600 Output: Urine 1365 1225 100 Stool 400 Other: Voiding Method Indwelling Catheter Indwelling Catheter # Bowel Movements 2 ABP, PAP, CO, CI - Last Documented Arterial Blood Pressure 85/79 - Exam GENERAL EXAM: On mechanical ventilation, in no distress HEAD: Normocephalic. EYES: PERRLA, EOMI NOSE: Clear with pink turbinates. THROAT: Oral endotracheal and nasogastric tubes remain in place. Poor gag reflex. NECK: No masses, no JVD. CHEST: No chest wall deformity. LUNGS: Equal air entry with crackles in the bilateral posterior bases. No rhonchi, no wheezes. CVS: S1 and S2 normal with no audible murmur, irregular rhythm. ABDOMEN: No hepatosplenomegaly, normal bowel sounds, no guarding or rigidity. SPINE: No scoliosis or deformity SKIN: No rashes CENTRAL NERVOUS SYSTEM: Patient opens eyes only, does not focus, does not follow any instructions, EXTREMITIES: No clubbing, no edema, no cyanosis. - Labs CBC & Chem 7: 04/27/17 04:15 04/27/17 04:15 Labs: Abnormal Lab Results - Last 24 Hours (Table) 04/26/17 04/26/17 04/26/17 Range/Units 08:15 11:50 11:59 RBC (4.30-5.90) m/uL Hgb (13.0-17.5) gm/dL Hct (39.0-53.0) % MCHC (31.0-37.0) g/dL Eosinophils # (0-0.7) k/uL ABG pCO2 52 H (35-45) mmHg ABG pO2 109 H (83-108) mmHg ABG HCO3 32 H (21-25) mmol/L ABG Total CO2 34 H (19-24) mmol/L ABG O2 Saturation 97.8 H (94-97) % Sodium (137-145) mmol/L Potassium (3.5-5.1) mmol/L Carbon Dioxide (22-30) mmol/L BUN (9-20) mg/dL Glucose (74-99) mg/dL POC Glucose (mg/dL) 126 H 139 H (75-99) mg/dL Calcium (8.4-10.2) mg/dL 04/26/17 04/26/17 04/27/17 Range/Units 19:00 23:07 04:15 RBC 3.81 L (4.30-5.90) m/uL Hgb 10.2 L (13.0-17.5) gm/dL Hct 35.0 L (39.0-53.0) % MCHC 29.1 L (31.0-37.0) g/dL Eosinophils # 0.8 H (0-0.7) k/uL ABG pCO2 (35-45) mmHg ABG pO2 (83-108) mmHg ABG HCO3 (21-25) mmol/L ABG Total CO2 (19-24) mmol/L ABG O2 Saturation (94-97) % Sodium (137-145) mmol/L Potassium (3.5-5.1) mmol/L Carbon Dioxide (22-30) mmol/L BUN (9-20) mg/dL Glucose (74-99) mg/dL POC Glucose (mg/dL) 210 H 131 H (75-99) mg/dL Calcium (8.4-10.2) mg/dL 04/27/17 04/27/17 Range/Units 04:15 07:35 RBC (4.30-5.90) m/uL Hgb (13.0-17.5) gm/dL Hct (39.0-53.0) % MCHC (31.0-37.0) g/dL Eosinophils # (0-0.7) k/uL ABG pCO2 52 H (35-45) mmHg ABG pO2 116 H (83-108) mmHg ABG HCO3 35 H (21-25) mmol/L ABG Total CO2 36 H (19-24) mmol/L ABG O2 Saturation 99.2 H (94-97) % Sodium 146 H (137-145) mmol/L Potassium 3.4 L (3.5-5.1) mmol/L Carbon Dioxide 36 H (22-30) mmol/L BUN 65 H (9-20) mg/dL Glucose 183 H (74-99) mg/dL POC Glucose (mg/dL) (75-99) mg/dL Calcium 8.1 L (8.4-10.2) mg/dL Assessment and Plan Assessment: 1 Acute hypoxic respiratory failure secondary to an acute exacerbation of systolic congestive heart failure as well as an acute Staphylococcus aureus pneumonia. Subsequent deterioration requiring intubation and mechanical ventilatory support. Chest x-ray continues to show evidence of multilobar pneumonia, fluid volume overload. Remains on diuretics. Patient is presently on Zosyn #2 Leukocytosis. Sputum now positive for Staphylococcus aureus. Methicillin sensitive staph aureus. #3 Mild troponin leak. Suspect demand ischemia with myocardial infarction type 2 secondary to acute hypoxic respiratory failure. #4 Coronary artery disease with previous coronary artery bypass grafting. #5 Mildly impaired left ventricular systolic function with ejection fraction 45- 50%. #6 Atrial fibrillation, status post permanent pacemaker implantation in 2013. Anticoagulated with Eliquis. However I placed this on hold for now since we may consider tracheostomy and PEG tube placement #7 Diabetes mellitus, type II #8 Hypertension. #9 Hyperlipidemia. #10 Coronary artery disease with previous coronary artery bypass grafting 4 in 2006. Cardiac catheterization in 2008 treated medically. #11 Acute renal failure, will cut down on diuresis slightly. Recommendation: Had a long discussion with his daughter at bedside, more family members will come and visit him today, and sometime in the next few hours the patient will be terminally weaned and extubated. Would proceed with comfort measures at that point. Critical care time is 34 minutes. Time with Patient: Greater than 30
[2017-04-27 11:52] VITALS: PULSE 49
[2017-04-27 11:59] VITALS: TEMP 98.7
[2017-04-27 12:25] VITALS: BP 129/50; RESP 18
[2017-04-27] MEDS: METOPROLOL TARTRATE 25 MG TAB PO SCH (12:31)
[2017-04-27] MEDS: LISINOPRIL 2.5 MG TAB PO SCH (12:31)
--- NOTE | 2017-04-27 13:24 | P.PN ---
Subjective Progress Note Date: 04/27/17 04/19/2017 Patient seen and examined at the bedside on rounds with Dr. Auguste. Patient remains intubated in the intensive care unit. Patients levophed has been weaned off. He remains on propofol for sedation. Weaning trial yesterday was unsuccessful due to tachypnea. Chest x-ray this morning: Correlate for possible ARDS, pneumonia, pulmonary edema. patchy bibasilar airspace disease. He remains on Lasix 40 mg IV every 12 hours. Sputum cultures positive for staph aureus. Blood cultures are negative at 48 hour alem. Urine culture is negative. White count this morning is 11.0. He is currently on meropenem and vancomycin. 04/20/2017 Patient remains intubated in the intensive care unit by Dr. Auguste. Patient has failed daily weaning attempts secondary to tachycardia and tachypnea. The patient underwent CPAP trial this morning which again was unsuccessful. The patient's propofol was resumed. Sputum cultures positive for Staphylococcus aureus. Patient remains on meropenem and vancomycin. Patient was receiving IV Lasix every 12 hours due to congestive heart failure. This has been stopped today secondary to elevated BUN. BUN 80. Creatinine 1.20. ABG: PH 7.41, CO2 38, pO2 94, bicarb 24. White count is 11.9. He remains bradycardic with a rate in the 50s. Blood pressure is elevated at 154/55. RR 30s. Afebrile. Remains on tube feedings at goal and tolerating well. Chest x-ray 04/20/2017: Correlate for pneumonia, ARDs, pulmonary edema. 04/21/2017 Patient seen and examined on rounds this morning with Dr. Auguste. Patient remains intubated and sedated in the intensive care unit. Patients son is at the bedside. Patient has failed daily weaning attempts secondary to tachycardia and tachypnea. Per son, he spoke with Dr. Grossman yesterday regarding trach and peg. He wishes to proceed with trach and peg early next week if patient is unable to be successfully extubated. His Lasix was restarted this morning per pulmonary: 40 mg IV every 8 hours. He remains on meropenem and vancomycin. White count this morning is 11.3. BUN 85. Creatinine 1.0. ABG this morning: PH 7.43, CO2 39, pO2 84, bicarb 26. Testing for C. diff was negative. Chest x-ray 04/21/2017: Mixed alveolar and interstitial process with bilateral effusions and infiltrates. Differential includes diffuse pneumonia, ARDS or CHF. 04/22/2017-04/26/2017-Notes per covering provider 04/27/2017 Patient seen and examined at the bedside in the intensive care unit by Dr. Auguste. Patient remains intubated. Patient has not been receiving sedation for past few days. Patient will open his eyes, but does not track, follow instructions, or respond to stimulation. Patient underwent CT of the brain yesterday which was negative for an acute intracranial hemorrhage or midline shift. 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 Dr. Kulkarni was consulted regarding possible trach and peg. Patient remains DNR. Dr. Auguste and nurse practitioner spoke with patients son in the lobby this morning. He states that he has decided not to proceed with trach and peg. He states the plan is for terminal wean today. Objective - Vital Signs Vital signs: Vital Signs Temp 97.4 F L 04/27/17 04:00 Pulse 49 L 04/27/17 08:35 Resp 25 H 04/27/17 07:00 BP 150/54 04/27/17 07:00 Pulse Ox 99 04/27/17 07:00 Intake & Output 04/26/17 04/27/17 04/27/17 18:59 06:59 18:59 Intake Total 1722 2521 155 Output Total 1765 1225 100 Balance -43 1296 55 Weight 98.6 kg 99.8 kg Intake: IV 140 941 85 0.9 110 110 10 0.9 for CVP 30 6 Dextrose 5% in Water 1, 825 75 000 ml @ 75 mls/hr IV . [id number] [facility] Rx#:[id number] Intake, IV Titration 425 Amount Dextrose 5% in Water 1, 375 000 ml @ 75 mls/hr IV . [id number] [facility] Rx#:[id number] Piperacillin-Tazobactam 3 50 .375 gm In Dextrose/Water 1 50ml.bag @ 12.5 mls/hr IVPB Q8H [facility] Rx#: [id number] Tube Feeding 777 980 70 Other 380 600 Output: Urine 1365 1225 100 Stool 400 Other: Voiding Method Indwelling Catheter Indwelling Catheter # Bowel Movements 2 ABP, PAP, CO, CI - Last Documented Arterial Blood Pressure 85/79 - Exam GENERAL: This is a 86-year-old male who remains intubated on mechanical ventilation in the intensive care unit. HEENT: ET tube noted. Head is atraumatic, normocephalic. Pupils are equal, round, and reactive to light. Sclerae anicteric. Conjunctivae are clear. Mucus membranes of the mouth are moist. Neck is supple. RESPIRATORY: ET tube in place. Rales to bilateral bases. Remains on mechanical ventilation with FiO2 of 35%. Oxygen saturations greater than 92%. CARDIOVASCULAR: S1 and S2 noted. No systolic or diastolic murmur auscultated. No JVD noted. No S3 or S4 noted. GASTROINTESTINAL: No distention noted. Abdomen soft and round. Normal active bowel sounds auscultated x 4 quadrants. No pain or tenderness noted upon palpation. INTEGUMENTARY: No cyanosis. No jaundice. No rashes noted. No cellulitis noted. EXTREMITIES: 2+ peripheral pulses. Trace bilateral lower extremity edema. NEUROLOGIC: Unable to assess secondary to mechanical ventilation. However, patient will open eyes, but does not track, follow commands,or respond to stimuli. PSYCHIATRIC: Unable to assess secondary to mechanical ventilation - Labs CBC & Chem 7: 04/27/17 04:15 04/27/17 04:15 Labs: Abnormal Lab Results - Last 24 Hours (Table) 04/26/17 04/26/17 04/26/17 Range/Units 08:15 11:50 11:59 RBC (4.30-5.90) m/uL Hgb (13.0-17.5) gm/dL Hct (39.0-53.0) % MCHC (31.0-37.0) g/dL Eosinophils # (0-0.7) k/uL ABG pCO2 52 H (35-45) mmHg ABG pO2 109 H (83-108) mmHg ABG HCO3 32 H (21-25) mmol/L ABG Total CO2 34 H (19-24) mmol/L ABG O2 Saturation 97.8 H (94-97) % Sodium (137-145) mmol/L Potassium (3.5-5.1) mmol/L Carbon Dioxide (22-30) mmol/L BUN (9-20) mg/dL Glucose (74-99) mg/dL POC Glucose (mg/dL) 126 H 139 H (75-99) mg/dL Calcium (8.4-10.2) mg/dL 04/26/17 04/26/17 04/27/17 Range/Units 19:00 23:07 04:15 RBC 3.81 L (4.30-5.90) m/uL Hgb 10.2 L (13.0-17.5) gm/dL Hct 35.0 L (39.0-53.0) % MCHC 29.1 L (31.0-37.0) g/dL Eosinophils # 0.8 H (0-0.7) k/uL ABG pCO2 (35-45) mmHg ABG pO2 (83-108) mmHg ABG HCO3 (21-25) mmol/L ABG Total CO2 (19-24) mmol/L ABG O2 Saturation (94-97) % Sodium (137-145) mmol/L Potassium (3.5-5.1) mmol/L Carbon Dioxide (22-30) mmol/L BUN (9-20) mg/dL Glucose (74-99) mg/dL POC Glucose (mg/dL) 210 H 131 H (75-99) mg/dL Calcium (8.4-10.2) mg/dL 04/27/17 04/27/17 Range/Units 04:15 07:35 RBC (4.30-5.90) m/uL Hgb (13.0-17.5) gm/dL Hct (39.0-53.0) % MCHC (31.0-37.0) g/dL Eosinophils # (0-0.7) k/uL ABG pCO2 52 H (35-45) mmHg ABG pO2 116 H (83-108) mmHg ABG HCO3 35 H (21-25) mmol/L ABG Total CO2 36 H (19-24) mmol/L ABG O2 Saturation 99.2 H (94-97) % Sodium 146 H (137-145) mmol/L Potassium 3.4 L (3.5-5.1) mmol/L Carbon Dioxide 36 H (22-30) mmol/L BUN 65 H (9-20) mg/dL Glucose 183 H (74-99) mg/dL POC Glucose (mg/dL) (75-99) mg/dL Calcium 8.1 L (8.4-10.2) mg/dL Assessment and Plan Plan: ASSESSMENT: Acute hypoxic respiratory failure requiring mechanical ventilation secondary to exacerbation of congestive heart failure and staph aureus pneumonia Acute exacerbation of systolic congestive heart failure, EF 45% Multilobar pneumonia, sputum culture positive for staph aureus Septic shock with leukocytosis and hypotension, requiring vasopressor support, suspect secondary to pneumonia, culture positive for staph aureus Mild troponin leak, likely due to demand ischemia with myocardial infarction type 2 secondary to acute hypoxic respiratory failure Acute kidney injury, likely secondary to IV diuretics Coronary artery disease with previous CABG X 4 in 2006 History of atrial fibrillation with permanent pacemaker insertion in 2013, and [facility] anticoagulation with Eliquis Diabetes mellitus, type II, hemoglobin A1c 15.6% Essential hypertension Hyperlipidemia Obesity: BMI 32.0 PLAN: Continue mechanical ventilation and supportive care. Patient remains DNR. Patients son has decided against trach and peg. Son states plan is for terminal wean this afternoon. Nurse practitioner note has been reviewed by physician. Signing provider agrees with the documented findings, assessment, and plan of care.
[2017-04-28] MEDS ORDERED: FUROSEMIDE 10 MG/ML 4 ML VIAL IV SCH (09:00)
== END 2017-04-27 12:12 | disposition hospice, inpatient (51) | DRG 870 ==
LOC: EC 09:19 → 6ICU 11:27
PROVIDERS: ADMIT Family Medicine; ATTEND Family Medicine
PROC: 5A1955Z Respiratory Ventilation, Greater than 96 Consecutive Hours (ICD-10-PCS; principal; 2017-04-15)
PROC: 0BH17EZ Insertion of Endotracheal Airway into Trachea, Via Natural or Artificial Opening (ICD-10-PCS; 2017-04-15)
PROC: 03HY32Z Insertion of Monitoring Device into Upper Artery, Percutaneous Approach (ICD-10-PCS; 2017-04-15)
PROC: 05HN33Z Insertion of Infusion Device into Left Internal Jugular Vein, Percutaneous Approach (ICD-10-PCS; 2017-04-15)
DX: A41.01 Sepsis due to Methicillin susceptible Staphylococcus aureus (principal); J96.01 Acute respiratory failure with hypoxia; R65.21 Severe sepsis with septic shock; I50.23 Acute on chronic systolic (congestive) heart failure; J15.211 Pneumonia due to Methicillin susceptible Staphylococcus aureus; E87.0 Hyperosmolality and hypernatremia; N17.9 Acute kidney failure, unspecified; I11.0 Hypertensive heart disease with heart failure; I48.2 Chronic atrial fibrillation; E83.42 Hypomagnesemia; E11.9 Type 2 diabetes mellitus without complications; E66.9 Obesity, unspecified; E78.5 Hyperlipidemia, unspecified; G47.33 Obstructive sleep apnea (adult) (pediatric); I25.10 Atherosclerotic heart disease of native coronary artery without angina pectoris; R63.4 Abnormal weight loss; R01.1 Cardiac murmur, unspecified; R74.8 Abnormal levels of other serum enzymes; T50.2X5A Adverse effect of carbonic-anhydrase inhibitors, benzothiadiazides and other diuretics, initial encounter; Z51.5 Encounter for palliative care; Z66 Do not resuscitate; Z68.32 Body mass index [BMI] 32.0-32.9, adult; Z79.82 Long term (current) use of aspirin; Z79.84 Long term (current) use of oral hypoglycemic drugs; Z79.899 Other long term (current) drug therapy; Z87.891 Personal history of nicotine dependence; Z95.0 Presence of cardiac pacemaker; Z95.1 Presence of aortocoronary bypass graft; Y92.239 Unspecified place in hospital as the place of occurrence of the external cause
CPT/HCPCS: 36415; 36600; 51702; 70450; 71045; 80048; 80053; 80202; 81001; 82330; 82550; 82553; 82805; 83036; 83735; 83880; 84100; 84132; 84484; 85025; 85610; 85730; 87040; 87070; 87077; 87086; 87186; 87205; 87324; 87502; 93005; 93306; 94002; 94003; 94640; 94660; 94770; 96374; 96375; 99291

== ENCOUNTER 2017-04-27 12:20 | Inpatient (IN) | payer MEDICAID ==
[2017-04-27] MEDS ORDERED: LORazepam 2 MG/ML INJ IV PRN ×2 (12:34)
[2017-04-27] MEDS ORDERED: SCOPOLAMINE 1.5MG/72HR PATCH TRANSDERM PRN (12:35)
[2017-04-27] MEDS ORDERED: ATROPINE OPHTH SOLN 1% 5ML BTL SUBLINGUAL PRN (12:37)
[2017-04-27] MEDS ORDERED: ACETAMINOPHEN IV (For NPO) 1,000 MG in EMPTY BAG 1 BAG IVPB PRN (12:38)
[2017-04-27] MEDS ORDERED: ARTIFICIAL TEARS-HYPROMELLOSE DROPS 15 ML BTL BOTH EYES PRN (12:39)
[2017-04-27] MEDS ORDERED: ONDANSETRON 4 MG/2 ML VIAL IVP PRN (12:40)
[2017-04-27] MEDS ORDERED: BISACODYL 10 MG SUPP RECTAL PRN (12:40)
[2017-04-27] MEDS: MORPHINE SULFATE (100 MG/2 ML) 100 MG in SODIUM CHLORIDE 0.9% 100 ML IV SCH ×2 (12:54→20:06)
[2017-04-27 13:39] VITALS: BP 161/73; PULSE 49
[2017-04-28 00:05] VITALS: RESP 7
[2017-04-28] MEDS: MORPHINE SULFATE (100 MG/2 ML) 100 MG in SODIUM CHLORIDE 0.9% 100 ML IV SCH ×2 (03:45→10:31)
== END 2017-04-28 14:00 | disposition expired | DRG 951 ==
LOC: 6ICU 12:20 → 4MS4W 17:39
PROVIDERS: ADMIT Family Medicine; ATTEND Family Medicine
DX: Z51.5 Encounter for palliative care (principal); J96.00 Acute respiratory failure, unspecified whether with hypoxia or hypercapnia; I11.0 Hypertensive heart disease with heart failure; I50.9 Heart failure, unspecified; E83.42 Hypomagnesemia; I25.10 Atherosclerotic heart disease of native coronary artery without angina pectoris; G47.30 Sleep apnea, unspecified; E78.5 Hyperlipidemia, unspecified; Z79.84 Long term (current) use of oral hypoglycemic drugs; Z79.899 Other long term (current) drug therapy; Z95.0 Presence of cardiac pacemaker